=== PATIENT | male | born 1940 | race Caucasian/White ===

== ENCOUNTER → 2016-11-10 | Outpatient (CLI) | payer OTHER ==
[~2016-11-10] MED LIST: /IPRAINH; /OCUVTA GT; /ONDA4TA IV; /TAMS4CA PO; /TIOT18INH INH; ADV500INH INH; ADVIL PM PO; ALBU17IN2 INH; ALBUTEROL INH; ALLO300T PO; ALLO300T2 PO; COUM2TAB10 PO; D 1010004 PO; DIGO0.12 PO; DILT240C3 PO; DOXY100T; EYE PO; FURO20TA2 PO; FURO40TA2; FURO40TA2 PO; GLYB5TAB5 PO; INSULADS SC; IPRA2IN INH; K-TA10TA; K-TA10TA OR; K-TA10TA PO; LEVA250T; LEVA500T OR; LEVO500T PO; LISI40TA; LISI40TA PO; MELOPOW; METF1000 PO; METO25TA74 PO; MULT1TAB10 PO; NOVOINJ3 SC; PERC5TAB PO; PERF20NE2 INH; SIMV20TA2; SIMV40TA2 PO; SPIR25TA2 PO; SPIRIVA INH; SYMB80AE; SYMB80AE INH; THEO400T PO; THEO400T2; TORS20TA2 PO; TYLENOL PM; VERA1TAB11 PO; VICO5TAB PO; VITA400C; VITA400C PO; VITA500T; VITA500T PO; WARF4TAB51 PO; ZARO2.5T PO; [UNRECOGNIZED DRUG - CODE] OR
--- NOTE | 2016-11-10 21:09 | REP ---
Clinical: Pain and decreased range of motion. Technique: Internal rotation, external rotation, and Y view. Findings: Cortical irregularity and subtle spurring at the acromioclavicular joint is appreciated. Blunting and cortical irregularity to the glenoid with subchondral sclerosis and heterogeneity is appreciated. There is no evidence for acute fracture / compression injury or subluxation. Is subacromial space is normal and no free periarticular calcifications are identified. Impression: Mild age-related arthritic degenerative changes. Signed by Victor Manuel Kumar MD 11/10/2016 09:00 P
== END ==
LOC: M CLY 10:44
PROVIDERS: ATTEND Family Medicine
DX: E83.119 Hemochromatosis, unspecified (principal); M75.42 Impingement syndrome of left shoulder; M19.012 Primary osteoarthritis, left shoulder; E11.22 Type 2 diabetes mellitus with diabetic chronic kidney disease
CPT/HCPCS: 73030; 80048; 82043; 83036; 85027; G0463

== ENCOUNTER → 2016-11-10 | Outpatient (REF) | payer OTHER ==
[2016-11-10 18:27] LABS: MEAN CORPUSCULAR HEMOGLOBIN 30.5 pg (27.0-33.0); MEAN CORPUSCULAR HGB CONC 32.5 g/dl (32.0-36.5); MEAN CORPUSCULAR VOLUME 93.8 fl (80.0-96.0); RED CELL DISTRIBUTION WIDTH 16.4 % (11.5-14.5); WHITE BLOOD COUNT 13.9 K/mm3 (4.0-10.0)
[2016-11-10 18:28] LABS: CALCIUM LEVEL 9.3 MG/DL (8.8-10.2); CREATININE FOR GFR 2.32 MG/DL (0.70-1.30); GLOMERULAR FILTRATION RATE 29.2 (>42); POTASSIUM SERUM 4.4 MEQ/L (3.5-5.1)
== END ==
LOC: M SFHCCLAY 07:19
PROVIDERS: ATTEND Family Medicine
DX: E11.22 Type 2 diabetes mellitus with diabetic chronic kidney disease (principal); E83.119 Hemochromatosis, unspecified

== ENCOUNTER → 2017-01-07 | Outpatient (REF) | payer OTHER ==
[2017-01-07 11:17] LABS: MEAN CORPUSCULAR HEMOGLOBIN 30.3 pg (27.0-33.0); MEAN CORPUSCULAR HGB CONC 31.9 g/dl (32.0-36.5); RED CELL DISTRIBUTION WIDTH 14.4 % (11.5-14.5); WHITE BLOOD COUNT 13.8 K/mm3 (4.0-10.0)
[2017-01-07 11:38] LABS: CALCIUM LEVEL 8.6 MG/DL (8.8-10.2); CREATININE FOR GFR 2.47 MG/DL (0.70-1.30); GLOMERULAR FILTRATION RATE 27.2 (>42); POTASSIUM SERUM 4.3 MEQ/L (3.5-5.1)
== END ==
LOC: M SFHCCLAY 08:14
PROVIDERS: ATTEND Urology
DX: N39.0 Urinary tract infection, site not specified (principal)

== ENCOUNTER → 2017-02-22 | Outpatient (REF) | payer OTHER ==
[~2017-02-22] MED LIST changes: -THEO400T PO; +THEOPHYLLINE E400 MG PO
== END ==
LOC: M SMT 17:09
PROVIDERS: ATTEND Urology
DX: Z85.51 Personal history of malignant neoplasm of bladder (principal)

== ENCOUNTER → 2017-02-23 | Outpatient (REF) | payer OTHER | LOC: M SFHCCLAY 16:02 | PROVIDERS: ATTEND Family Medicine | DX: L82.1 Other seborrheic keratosis (principal) ==

== ENCOUNTER → 2017-04-23 | Outpatient (CLI) | payer OTHER | LOC: M PLARAD 07:33 | PROVIDERS: ATTEND Internal Medicine | DX: M54.5 Low back pain (principal); Z53.8 Procedure and treatment not carried out for other reasons ==

== ENCOUNTER → 2017-06-18 | Outpatient (REF) | payer OTHER ==
[~2017-06-18] MED LIST changes: -COUM2TAB10 PO; +COUM2TAB22 PO; +METO1TAB32 PO; -METO25TA74 PO; +THEO400T PO; -THEOPHYLLINE E400 MG PO
== END ==
LOC: M SFHCCLAY 15:14
PROVIDERS: ATTEND Family Medicine
DX: C44.329 Squamous cell carcinoma of skin of other parts of face (principal)

== ENCOUNTER → 2017-06-24 | Outpatient (REF) | payer OTHER ==
[2017-06-24 12:02] LABS: CALCIUM LEVEL 8.8 MG/DL (8.8-10.2); CREATININE FOR GFR 2.12 MG/DL (0.70-1.30); GLOMERULAR FILTRATION RATE 32.4 (>42); POTASSIUM SERUM 4.7 MEQ/L (3.5-5.1)
== END ==
LOC: M SFHCCLAY 06:57
PROVIDERS: ATTEND Family Medicine
DX: E11.22 Type 2 diabetes mellitus with diabetic chronic kidney disease (principal)
CPT/HCPCS: 80048; G0463

== ENCOUNTER → 2017-07-15 | Outpatient (REF) | payer OTHER | LOC: M SFHCCLAY 08:11 | PROVIDERS: ATTEND Family Medicine | DX: D48.5 Neoplasm of uncertain behavior of skin (principal) | CPT/HCPCS: 11100; 88305; G0463 ==

== ENCOUNTER → 2017-08-19 | Outpatient (REF) | payer OTHER ==
[2017-08-19 12:05] LABS: MEAN CORPUSCULAR HEMOGLOBIN 19.3 pg (27.0-33.0); MEAN CORPUSCULAR HGB CONC 27.3 g/dl (32.0-36.5); WHITE BLOOD COUNT 20.4 10^3/uL (4.0-10.0)
[2017-08-19 12:11] LABS: MEAN CORPUSCULAR VOLUME 70.5 fl (80.0-96.0)
[2017-08-19 12:31] LABS: CALCIUM LEVEL 9.1 MG/DL (8.8-10.2); CREATININE FOR GFR 2.05 MG/DL (0.70-1.30); GLOMERULAR FILTRATION RATE 33.7 (>42); POTASSIUM SERUM 4.8 MEQ/L (3.5-5.1)
== END ==
LOC: M SMT 11:22
PROVIDERS: ATTEND Urology
DX: Z85.51 Personal history of malignant neoplasm of bladder (principal)

== ENCOUNTER → 2017-08-25 | Outpatient (REF) | payer OTHER | LOC: M LABSMT 10:14 → M LABDRAWC 10:21 | PROVIDERS: ATTEND Nurse Practitioner Women's Health | DX: Z85.51 Personal history of malignant neoplasm of bladder (principal); Z79.899 Other long term (current) drug therapy ==

== ENCOUNTER → 2017-09-20 | Outpatient (REF) | payer OTHER | LOC: M LAB REF 16:26 | PROVIDERS: ATTEND Internal Medicine Medical Oncology | DX: D64.9 Anemia, unspecified (principal) ==

== ENCOUNTER → 2017-10-04 | Outpatient (REF) | payer OTHER | LOC: M SMT 13:13 | PROVIDERS: ATTEND Urology | DX: Z08 Encounter for follow-up examination after completed treatment for malignant neoplasm (principal); Z85.51 Personal history of malignant neoplasm of bladder ==

== ENCOUNTER → 2017-11-09 | Outpatient (REF) | payer OTHER ==
[2017-11-09 12:59] LABS: FERRITIN 19 NG/ML (26-388); IRON (FE) 21 UG/DL (65-175); PERCENT SATURATION 8.2 % (19.7-50.0); TOTAL IRON BINDING CAPACITY 255 UG/DL (250-450)
== END ==
LOC: M LAB REF 11:50
DX: D72.829 Elevated white blood cell count, unspecified (principal); D47.1 Chronic myeloproliferative disease
CPT/HCPCS: 83550

== ENCOUNTER → 2018-01-05 | Outpatient (REF) | payer OTHER ==
[2018-01-05 15:15] LABS: PROSTATIC SPECIFIC AG MONITOR 0.39 NG/ML (< 4.0)
== END ==
LOC: M LAB REF 13:38
DX: D50.9 Iron deficiency anemia, unspecified (principal)
CPT/HCPCS: 84153

== ENCOUNTER 2018-01-27 11:25 | Observation (INO) | payer OTHER ==
[2018-01-27] MEDS: MORPHINE 2 MG/ML 1ML SYRINGE (J2270) IV ×2 (12:09→15:59)
[2018-01-27] MEDS: ONDANSETRON 4MG/2ML VIAL (J2405) IV (12:09)
[2018-01-27] MEDS: NS 500 ML IV (12:09)
[2018-01-27 12:12] LABS: BASO # 0.1 10^3/uL (0.0-0.2); BASO % 0.5 % (0.0-1.0); EOS # 0.3 10^3/uL (0.0-0.50); EOS % 1.1 % (0.0-3.0); HEMATOCRIT 32.8 % (42.0-52.0); HEMOGLOBIN 9.9 g/dl (14.0-18.0); IMMATURE GRANULOCYTE % 3.2 % (0-3.0); LYMPH # 3.3 10^3/uL (1.5-4.5); LYMPH % 12.8 % (24.0-44.0); MEAN CORPUSCULAR HEMOGLOBIN 22.4 pg (27.0-33.0); MEAN CORPUSCULAR HGB CONC 30.2 g/dl (32.0-36.5); MEAN CORPUSCULAR VOLUME 74.4 fl (80.0-96.0); MONO % 10.5 % (0.0-5.0); NEUTROPHILS # 18.7 10^3/uL (1.8-7.7); NEUTROPHILS % 71.9 % (36.0-66.0); PLATELET COUNT, AUTOMATED 527 10^3/uL (150-450); RED BLOOD COUNT 4.41 10^6/uL (4.30-6.10); RED CELL DISTRIBUTION WIDTH 18.9 % (11.5-14.5)
[2018-01-27 12:22] LABS: INR 1.93; PROTHROMBIN TIME 22.7 SECONDS (12.4-14.5)
[2018-01-27 12:23] LABS: PARTIAL THROMBOPLASTIN TIME 35.7 SECONDS (26.8-37.9)
[2018-01-27 12:35] LABS: MONO # 2.7 10^3/uL (0.0-0.8); POSITIVE DIFF POS FLAG
[2018-01-27 12:38] LABS: ALBUMIN 3.4 GM/DL (3.2-5.2); ALBUMIN/GLOBULIN RATIO 0.83 (1.00-1.93); ALKALINE PHOSPHATASE 88 U/L (45-117); ALT/SGPT 29 U/L (12-78); ANION GAP 9 MEQ/L (8-16); AST/SGOT 14 U/L (7-37); BILIRUBIN,DIRECT 0.1 MG/DL (0.0-0.2); BILIRUBIN,TOTAL 0.3 MG/DL (0.2-1.0); BLOOD UREA NITROGEN 44 MG/DL (7-18); CALCIUM LEVEL 9.2 MG/DL (8.8-10.2); CARBON DIOXIDE LEVEL 28 MEQ/L (21-32); CHLORIDE LEVEL 100 MEQ/L (98-107); CPK CREATINE PHOSPHOKINASE 42 U/L (39-308); CREATININE FOR GFR 2.04 MG/DL (0.70-1.30); FREE T4 0.88 NG/DL (0.76-1.46); GLOMERULAR FILTRATION RATE 33.8 (>42); GLUCOSE, FASTING 199 MG/DL (70-100); LIPASE 144 U/L (73-393); POTASSIUM SERUM 4.1 MEQ/L (3.5-5.1); SODIUM LEVEL 137 MEQ/L (136-145); TOTAL PROTEIN 7.5 GM/DL (6.4-8.2); TROPONIN I < 0.02 NG/ML (< 0.10)
[2018-01-27 12:44] LABS: CK-MB VALUE MASS 1.5 NG/ML (<3.6); MB/CK RELATIVE INDEX 3.57 (< OR =4)
[2018-01-27] MEDS: TORSEMIDE 20 MG TAB PO (17:00)
[2018-01-27 17:24] LABS: CPK CREATINE PHOSPHOKINASE 43 U/L (39-308); TROPONIN I < 0.02 NG/ML (< 0.10)
[2018-01-27 17:25] LABS: CK-MB VALUE MASS 1.1 NG/ML (<3.6); MB/CK RELATIVE INDEX 2.55 (< OR =4)
[2018-01-27] MEDS ORDERED: PERCOCET 5MG/325MG TAB PO (20:30)
[2018-01-27] MEDS: SYMBICORT 160/4.5MCG INHALER 6GM INH (21:00)
[2018-01-27] MEDS: SPIRONOLACTONE 25 MG TAB PO (21:00)
[2018-01-27] MEDS: HumaLOG INSULIN (NovoLOG) PER UNIT SC (21:00)
[2018-01-27] MEDS: FLUoxetine 20 MG CAP PO (21:53)
[2018-01-27] MEDS: PRAVASTATIN 20 MG TAB PO (21:53)
[2018-01-27] MEDS: WARFARIN SOD 2 MG TAB PO (21:53)
[2018-01-27] MEDS: LEVEMIR (INSULIN DETEMIR) 1 UNITS/0.01ML SC (21:54)
[2018-01-27 22:13] LABS: BEDSIDE GLUCOSE 204 MG/DL (83-110)
[2018-01-27] MEDS ORDERED: GLUCOSE 4 GM CHEW TABLET PO (22:15)
[2018-01-27] MEDS ORDERED: DEXTROSE 50% 50 ML SYRINGE IV (22:15)
[2018-01-27] MEDS ORDERED: GLUCAGON FOR INJ 1 MG VIAL (J1610) SC (22:15)
[2018-01-27 23:27] LABS: CPK CREATINE PHOSPHOKINASE 57 U/L (39-308); MB/CK RELATIVE INDEX 1.75 (< OR =4); TROPONIN I < 0.02 NG/ML (< 0.10)
[2018-01-28 07:19] LABS: BEDSIDE GLUCOSE 85 MG/DL (83-110)
[2018-01-28] MEDS: HumaLOG INSULIN (NovoLOG) PER UNIT SC (07:30)
[2018-01-28] MEDS: LEVEMIR (INSULIN DETEMIR) 1 UNITS/0.01ML SC ×2 (07:38→08:40)
[2018-01-28] MEDS: TIOTROPIUM INHALER/CAPSULE (SPIRIVA) INH (08:27)
[2018-01-28] MEDS: SYMBICORT 160/4.5MCG INHALER 6GM INH (08:27)
[2018-01-28] MEDS: VERAPAMIL 120 MG SR TAB PO (08:37)
[2018-01-28] MEDS: TORSEMIDE 20 MG TAB PO (08:37)
[2018-01-28] MEDS: VITAMIN D 1,000 INTERNATIONAL UNITS TABLET PO (08:38)
[2018-01-28] MEDS: OMEPRAZOLE 20 MG CAP PO (08:38)
[2018-01-28] MEDS: LOSARTAN 25 MG TAB PO (08:39)
[2018-01-28] MEDS: DIGOXIN 0.125 MG TAB PO (08:39)
[2018-01-28] MEDS: SPIRONOLACTONE 25 MG TAB PO (08:39)
[2018-01-28] MEDS: ALLOPURINOL 300 MG TAB PO (08:39)
[2018-01-28] MEDS ORDERED: WARFARIN SOD 1 MG TAB PO ×2 (09:00→17:00)
== END 2018-01-28 10:00 | disposition home or self-care (01) ==
LOC: M ED 11:25 → M ED INP 20:28
DX: R07.89 Other chest pain (principal); R06.02 Shortness of breath; I10 Essential (primary) hypertension; I48.0 Paroxysmal atrial fibrillation; Z79.01 Long term (current) use of anticoagulants; E11.9 Type 2 diabetes mellitus without complications; E83.119 Hemochromatosis, unspecified; J44.9 Chronic obstructive pulmonary disease, unspecified; G47.33 Obstructive sleep apnea (adult) (pediatric); Z79.4 Long term (current) use of insulin; M10.9 Gout, unspecified; E78.00 Pure hypercholesterolemia, unspecified; K76.0 Fatty (change of) liver, not elsewhere classified; K27.7 Chronic peptic ulcer, site unspecified, without hemorrhage or perforation; Z85.46 Personal history of malignant neoplasm of prostate; Z85.51 Personal history of malignant neoplasm of bladder; R91.1 Solitary pulmonary nodule; Z88.8 Allergy status to other drugs, medicaments and biological substances; Z88.0 Allergy status to penicillin; Z87.891 Personal history of nicotine dependence; Z79.899 Other long term (current) drug therapy
CPT/HCPCS: J2405

== ENCOUNTER → 2018-02-22 | Outpatient (REF) | payer OTHER, MEDICARE ==
[2018-02-22 14:03] LABS: FERRITIN 36 NG/ML (26-388); IRON (FE) 26 UG/DL (65-175); PERCENT SATURATION 10.7 % (19.7-50.0); TOTAL IRON BINDING CAPACITY 242 UG/DL (250-450)
[2018-02-24 00:08] LABS: SOLUBLE TRANSFERRIN RECEPTOR 40.7 nmol/L (12.2-27.3)
== END ==
LOC: M LAB REF 13:08
DX: D50.9 Iron deficiency anemia, unspecified (principal)
CPT/HCPCS: 83550

== ENCOUNTER → 2018-03-02 | Outpatient (REF) | payer OTHER, MEDICARE | LOC: M LAB REF 12:40 | DX: D64.9 Anemia, unspecified (principal); D72.829 Elevated white blood cell count, unspecified | CPT/HCPCS: 88300 ==

== ENCOUNTER → 2018-04-08 | Outpatient (REF) | payer OTHER ==
[2018-04-08 14:14] LABS: AMORPHOUS SEDIMENT SMALL (NEGATIVE); APPEARANCE, URINE CLOUDY (CLEAR); BACTERIA, URINE AUTO 2+ (NEGATIVE); BILIRUBIN, URINE AUTO NEGATIVE (NEGATIVE); BLOOD, URINE BLOOD NEGATIVE (NEGATIVE); COLOR, URINE YELLOW (YELLOW); GLUCOSE, URINE (UA) AUTO NEGATIVE (NEGATIVE); KETONE, URINE AUTO NEGATIVE (NEGATIVE); LEUKOCYTE ESTERASE, URINE AUTO 3+ (NEGATIVE); MUCUS, URINE SMALL (NEGATIVE); NITRITE, URINE AUTO NEGATIVE (NEGATIVE); PROTEIN, URINE AUTO NEGATIVE (NEGATIVE); RBC, URINE AUTO 5 /HPF (0-3); SQUAMOUS EPITHELIAL CELL UR AU 1 /HPF (0-6); UROBILINOGEN, URINE AUTO 0.2 mg/dL (0.0-2.0); WBC, URINE AUTO 106 /HPF (0-3)
== END ==
LOC: M LAB REF 13:28
DX: D50.9 Iron deficiency anemia, unspecified (principal)
CPT/HCPCS: 81001

== ENCOUNTER → 2018-04-18 | Outpatient (REF) | payer OTHER | LOC: M SMT 17:08 | DX: Z85.51 Personal history of malignant neoplasm of bladder (principal) | CPT/HCPCS: 88108 ==

== ENCOUNTER → 2018-05-06 | Outpatient (REF) | payer OTHER ==
[2018-05-06 11:57] LABS: BASO % 0.2 % (0.0-1.0); EOS # 0.4 10^3/uL (0.0-0.50); EOS % 2.5 % (0.0-3.0); HEMOGLOBIN 8.8 g/dl (13.5-17.5); IMMATURE GRANULOCYTE % 0.6 % (0-3.0); LYMPH # 1.8 10^3/uL (1.5-4.5); LYMPH % 11.2 % (24.0-44.0); MEAN CORPUSCULAR HEMOGLOBIN 23.2 pg (27.0-33.0); MEAN CORPUSCULAR HGB CONC 30.3 g/dl (32.0-36.5); MEAN CORPUSCULAR VOLUME 76.3 fl (80.0-96.0); MONO # 1.3 10^3/uL (0.0-0.8); MONO % 7.9 % (0.0-5.0); NEUTROPHILS # 12.6 10^3/uL (1.8-7.7); NEUTROPHILS % 77.6 % (36.0-66.0); PLATELET COUNT, AUTOMATED 477 10^3/uL (150-450); RED CELL DISTRIBUTION WIDTH 18.7 % (11.5-14.5); RETICULOCYTE # 61.6 10^9/L (17-77); RETICULOCYTE % 1.6 % (0.5-1.5); WHITE BLOOD COUNT 16.3 10^3/uL (4.0-10.0)
[2018-05-06 12:18] LABS: LDH LACTATE DEHYDROGENASE 154 U/L (87-241)
[2018-05-06 12:18] LABS: BILIRUBIN,TOTAL 0.3 MG/DL (0.2-1.0); FERRITIN 8 NG/ML (26-388); IRON (FE) 16 UG/DL (65-175); TOTAL PROTEIN 6.7 GM/DL (6.4-8.2)
[2018-05-09 11:18] LABS: ALBUMIN % 54.3 % (55.8-66.1); ALPHA-1-GLOBULIN % 5.9 % (2.9-4.9); ALPHA-2-GLOBULINS 0.82 GM/DL (0.42-0.99); ALPHA-2-GLOBULINS % 12.3 % (7.1-11.8); BETA-1-GLOBULINS 0.45 GM/DL (0.28-0.60); BETA-1-GLOBULINS % 6.7 % (4.7-7.2); BETA-2-GLOBULINS 0.47 GM/DL (0.19-0.55); GAMMA GLOBULIN % 13.8 % (11.1-18.8); GAMMA GLOBULINS 0.92 GM/DL (0.65-1.58)
[2018-05-09 11:19] LABS: ALBUMIN 3.64 GM/DL (3.29-5.55)
[2018-05-10 00:07] LABS: SOLUBLE TRANSFERRIN RECEPTOR 35.9 nmol/L (12.2-27.3)
== END ==
LOC: M LABDRAWC 11:38
DX: D64.9 Anemia, unspecified (principal)
CPT/HCPCS: 82247

== ENCOUNTER → 2018-06-21 | Outpatient (REF) | payer OTHER ==
[2018-06-21 19:55] LABS: APPEARANCE, URINE HAZY (CLEAR); BACTERIA, URINE AUTO 2+ (NEGATIVE); BILIRUBIN, URINE AUTO NEGATIVE (NEGATIVE); BLOOD, URINE BLOOD 3+ (NEGATIVE); COLOR, URINE YELLOW (YELLOW); GLUCOSE, URINE (UA) AUTO NEGATIVE (NEGATIVE); KETONE, URINE AUTO NEGATIVE (NEGATIVE); LEUKOCYTE ESTERASE, URINE AUTO 3+ (NEGATIVE); NITRITE, URINE AUTO NEGATIVE (NEGATIVE); PROTEIN, URINE AUTO NEGATIVE (NEGATIVE); RBC, URINE AUTO TNTC /HPF (0-3); SPECIFIC GRAVITY URINE AUTO 1.009 (1.002-1.035); SQUAMOUS EPITHELIAL CELL UR AU 1 /HPF (0-6); UROBILINOGEN, URINE AUTO 0.2 mg/dL (0.0-2.0); WBC, URINE AUTO 142 /HPF (0-3)
== END ==
LOC: M LABSMT 10:57 → M LABDRAWC 11:08
DX: R31.9 Hematuria, unspecified (principal)
CPT/HCPCS: 81001

== ENCOUNTER → 2018-07-07 | Outpatient (REF) | payer OTHER ==
[2018-07-07 16:45] LABS: APPEARANCE, URINE HAZY (CLEAR); BACTERIA, URINE AUTO NEGATIVE (NEGATIVE); BILIRUBIN, URINE AUTO NEGATIVE (NEGATIVE); BLOOD, URINE BLOOD NEGATIVE (NEGATIVE); COLOR, URINE YELLOW (YELLOW); GLUCOSE, URINE (UA) AUTO NEGATIVE (NEGATIVE); KETONE, URINE AUTO NEGATIVE (NEGATIVE); LEUKOCYTE ESTERASE, URINE AUTO TRACE (NEGATIVE); MUCUS, URINE SMALL (NEGATIVE); NITRITE, URINE AUTO NEGATIVE (NEGATIVE); PROTEIN, URINE AUTO NEGATIVE (NEGATIVE); RBC, URINE AUTO 6 /HPF (0-3); SPECIFIC GRAVITY URINE AUTO 1.014 (1.002-1.035); SQUAMOUS EPITHELIAL CELL UR AU 2 /HPF (0-6); UROBILINOGEN, URINE AUTO 0.2 mg/dL (0.0-2.0); WBC, URINE AUTO 8 /HPF (0-3)
== END ==
LOC: M LABDRAWC 16:19
DX: N30.01 Acute cystitis with hematuria (principal)
CPT/HCPCS: 81001

== ENCOUNTER → 2018-08-11 | Outpatient (REF) | payer OTHER ==
[2018-08-11 17:41] LABS: HEMATOCRIT 34.5 % (42.0-52.0); HEMOGLOBIN 10.6 g/dl (13.5-17.5); MEAN CORPUSCULAR HGB CONC 30.7 g/dl (32.0-36.5); MEAN CORPUSCULAR VOLUME 84.8 fl (80.0-96.0); PLATELET COUNT, AUTOMATED 400 10^3/uL (150-450); RED BLOOD COUNT 4.07 10^6/uL (4.30-6.10); RED CELL DISTRIBUTION WIDTH 17.8 % (11.5-14.5); WHITE BLOOD COUNT 14.6 10^3/uL (4.0-10.0)
[2018-08-11 17:48] LABS: FERRITIN 14 NG/ML (26-388)
== END ==
LOC: M LABDRAWC 16:36
DX: D50.9 Iron deficiency anemia, unspecified (principal)
CPT/HCPCS: 82728

== ENCOUNTER → 2018-08-25 | Outpatient (CLI) | payer OTHER | LOC: M RAD 07:44 | DX: R22.2 Localized swelling, mass and lump, trunk (principal); D50.9 Iron deficiency anemia, unspecified; N18.9 Chronic kidney disease, unspecified | CPT/HCPCS: 70486 ==

== ENCOUNTER → 2018-09-14 | Outpatient (CLI) | payer OTHER | LOC: M CLY 13:35 | DX: R06.02 Shortness of breath (principal) | CPT/HCPCS: 71046; 80048 ==

== ENCOUNTER → 2018-09-14 | Outpatient (REF) | payer OTHER ==
[2018-09-14 17:24] LABS: ANION GAP 6 MEQ/L (8-16); BLOOD UREA NITROGEN 30 MG/DL (7-18); CARBON DIOXIDE LEVEL 32 MEQ/L (21-32); CHLORIDE LEVEL 101 MEQ/L (98-107); GLOMERULAR FILTRATION RATE 38.9 (>42); GLUCOSE, FASTING 157 MG/DL (70-100); NT-PRO BNP 95 PG/ML (<450); POTASSIUM SERUM 4.5 MEQ/L (3.5-5.1); SODIUM LEVEL 139 MEQ/L (136-145)
== END ==
LOC: M SFHCCLAY 13:18
DX: R06.02 Shortness of breath (principal)
CPT/HCPCS: 80048

== ENCOUNTER → 2018-12-19 | Outpatient (REF) | payer OTHER, MEDICARE ==
[~2018-12-19] MED LIST changes: +ALLO100T PO; +ATRO0.063 INH; +FLUO20CA8 PO; +INSULADS INJ; +LOSA25TA14 PO; +OMEP20CA3 PO; +OMEP40CA2 PO; +OXYC1TAB23 PO; +PRAV40TA2 PO; +PRESCAP4 PO; +PROAAER10 INH; +REFR0.5D8 OU; +SPIR-10 PO; +SPIR1CAP INH; +SYMB16INH INH; +VERA120T2 PO; +VERA12TASA PO; +WARF4TAB52 PO; +ZOFR4TAB16 PO
[2018-12-19 18:17] LABS: BASO # 0.1 10^3/uL (0.0-0.2); BASO % 0.4 % (0.0-1.0); EOS # 0.5 10^3/uL (0.0-0.50); HEMATOCRIT 42.5 % (42.0-52.0); HEMOGLOBIN 12.5 g/dl (13.5-17.5); LYMPH % 12.8 % (24.0-44.0); MEAN CORPUSCULAR HEMOGLOBIN 25.9 pg (27.0-33.0); MEAN CORPUSCULAR HGB CONC 29.4 g/dl (32.0-36.5); MONO # 1.3 10^3/uL (0.0-0.8); MONO % 8.3 % (0.0-5.0); NEUTROPHILS # 11.5 10^3/uL (1.8-7.7); NEUTROPHILS % 74.9 % (36.0-66.0); PLATELET COUNT, AUTOMATED 340 10^3/uL (150-450); RED BLOOD COUNT 4.83 10^6/uL (4.30-6.10); WHITE BLOOD COUNT 15.4 10^3/uL (4.0-10.0)
[2018-12-19 18:26] LABS: ALBUMIN 3.4 GM/DL (3.2-5.2); BILIRUBIN,TOTAL 0.4 MG/DL (0.2-1.0); CALCIUM LEVEL 8.7 MG/DL (8.8-10.2); CREATININE FOR GFR 1.91 MG/DL (0.70-1.30); GLOMERULAR FILTRATION RATE 36.4 (>42); PERCENT SATURATION 38.9 % (19.7-50.0); POTASSIUM SERUM 4.5 MEQ/L (3.5-5.1); TOTAL PROTEIN 6.6 GM/DL (6.4-8.2)
== END ==
LOC: M LABDRAWC 16:39
PROVIDERS: ATTEND Internal Medicine Hematology & Oncology
DX: I48.1 Persistent atrial fibrillation (principal)

== ENCOUNTER → 2019-02-13 | Outpatient (REF) | payer OTHER, MEDICARE ==
[~2019-02-13] MED LIST changes: -/IPRAINH; -/OCUVTA GT; -/ONDA4TA IV; -/TAMS4CA PO; -/TIOT18INH INH; +ATRO0.063; +FLOM0.4C39 PO; +ONDA-1 IV; +PROS2TAB2 GT; +REPA1TAB OR; +VERA180T3 PO; -VERA1TAB11 PO; -[UNRECOGNIZED DRUG - CODE] OR
[2019-02-13 13:15] LABS: BASO # 0.1 10^3/uL (0.0-0.2); BASO % 0.4 % (0.0-1.0); EOS # 0.5 10^3/uL (0.0-0.50); EOS % 3.1 % (0.0-3.0); HEMATOCRIT 44.4 % (42.0-52.0); HEMOGLOBIN 13.9 g/dl (13.5-17.5); LYMPH # 1.8 10^3/uL (1.5-4.5); LYMPH % 12.1 % (24.0-44.0); MEAN CORPUSCULAR HEMOGLOBIN 28.1 pg (27.0-33.0); MEAN CORPUSCULAR HGB CONC 31.3 g/dl (32.0-36.5); MEAN CORPUSCULAR VOLUME 89.7 fl (80.0-96.0); MONO # 1.2 10^3/uL (0.0-0.8); MONO % 8.2 % (0.0-5.0); NEUTROPHILS % 75.7 % (36.0-66.0); PLATELET COUNT, AUTOMATED 271 10^3/uL (150-450); RED BLOOD COUNT 4.95 10^6/uL (4.30-6.10); WHITE BLOOD COUNT 14.6 10^3/uL (4.0-10.0)
[2019-02-13 13:48] LABS: ALBUMIN 3.6 GM/DL (3.2-5.2); BILIRUBIN,TOTAL 0.4 MG/DL (0.2-1.0); CALCIUM LEVEL 9.1 MG/DL (8.8-10.2); CREATININE FOR GFR 1.81 MG/DL (0.70-1.30); GLOMERULAR FILTRATION RATE 38.7 (>42); PERCENT SATURATION 34.6 % (19.7-50.0); POTASSIUM SERUM 4.6 MEQ/L (3.5-5.1); TOTAL PROTEIN 6.7 GM/DL (6.4-8.2)
== END ==
LOC: M LABDRAWC 11:53
PROVIDERS: ATTEND Internal Medicine Hematology & Oncology
DX: D64.9 Anemia, unspecified (principal)

== ENCOUNTER → 2019-02-27 | Outpatient (REF) | payer OTHER, MEDICARE ==
[~2019-02-27] MED LIST changes: +DEXT4TAB15 PO; +HM S0.65 NARES; -INSULADS INJ; +SENN-23 PO; +WARF05TA PO
[2019-02-27 11:31] LABS: BASO # 0.1 10^3/uL (0.0-0.2); BASO % 0.4 % (0.0-1.0); EOS # 0.4 10^3/uL (0.0-0.50); EOS % 2.5 % (0.0-3.0); HEMATOCRIT 44.7 % (42.0-52.0); HEMOGLOBIN 13.8 g/dl (13.5-17.5); LYMPH # 1.6 10^3/uL (1.5-4.5); LYMPH % 11.6 % (24.0-44.0); MEAN CORPUSCULAR HEMOGLOBIN 28.2 pg (27.0-33.0); MEAN CORPUSCULAR HGB CONC 30.9 g/dl (32.0-36.5); MEAN CORPUSCULAR VOLUME 91.2 fl (80.0-96.0); MONO # 1.3 10^3/uL (0.0-0.8); MONO % 8.9 % (0.0-5.0); NEUTROPHILS # 10.7 10^3/uL (1.8-7.7); PLATELET COUNT, AUTOMATED 319 10^3/uL (150-450); WHITE BLOOD COUNT 14.1 10^3/uL (4.0-10.0)
[2019-02-27 12:25] LABS: FOLATE 17.8 NG/ML
== END ==
LOC: M LABDRAWC 11:04
PROVIDERS: ATTEND Internal Medicine Gastroenterology
DX: D50.9 Iron deficiency anemia, unspecified (principal)

== ENCOUNTER 2019-03-01 09:55 | Inpatient (IN) | payer MEDICARE, OTHER ==
[~2019-03-01] VITALS: Ht 182.9 cm; Wt 135.2 kg
[2019-03-01] MEDS: VERAPAMIL 120 MG SR TAB PO SCH (09:00)
[~2019-03-01 09:55] MED LIST changes: -DEXT4TAB15 PO; -HM S0.65 NARES; +METOPROLOL SUCC *XL* 25MG TAB (TopROL *XL*) PO SCH; -SENN-23 PO; -WARF05TA PO
[2019-03-01] MEDS ORDERED: ADACEL/BOOSTRIX VACCINE (DIPHTH/PERTUSS/ACELL/TETANUS)0.5ML SYR (90715) IM ONE (10:15)
[2019-03-01] MEDS ORDERED: METO1TAB32 PO (10:18)
--- NOTE | 2019-03-01 10:41 | REP ---
CT Head without contrast HISTORY: Trauma COMPARISON: None Areas of decreased attenuation are present in the periventricular white matter. This represents small-vessel ischemic disease. There is no intraparenchymal hemorrhage, acute infarct, mass or midline shift. The ventricular system and cortical sulci are dilated consistent with minimal volume loss. A small arachnoid cyst is present overlying the right frontal lobe. The arachnoid cyst measures 1.7 cm in transverse by 2.1 cm in AP dimensions. There is no mass effect on the adjacent right frontal lobe. There is no extra cerebral collection. There is no fracture. Mucosal thickening is present in the right maxillary sinus. IMPRESSION: 1. Small vessel ischemic disease. 2. Minimal volume loss. 3. There is a small 2.1 cm arachnoid cyst overlying the right frontal lobe. Electronically Signed by Lb Bah MD 03/01/2019 10:32 A
--- NOTE | 2019-03-01 10:45 | REP ---
CT cervical spine without contrast HISTORY: Trauma COMPARISON: None There is no acute fracture or subluxation. Disc bulges with associated osteophyte formation are present at the C3-4 through C6-7 levels. There is minimal narrowing of the spinal canal. Uncinate process and/or facet hypertrophy are present at the C2-3 through C7-T1 levels. These findings produce minimal to moderate narrowing of the neural foramina. The cervical intervertebral discs are decreased in height consistent with disc degeneration. IMPRESSION: 1. There is no acute fracture or subluxation. 2. There is cervical spondylosis at the C2-3 through C7-T1 levels. Electronically Signed by Lb Bah MD 03/01/2019 10:35 A
[2019-03-01 11:02] LABS: BASO % 0.2 % (0.0-1.0); EOS # 0.2 10^3/uL (0.0-0.50); EOS % 0.7 % (0.0-3.0); HEMATOCRIT 44.3 % (42.0-52.0); HEMOGLOBIN 14.2 g/dl (13.5-17.5); LYMPH # 0.9 10^3/uL (1.5-4.5); LYMPH % 4.1 % (24.0-44.0); MEAN CORPUSCULAR HEMOGLOBIN 28.3 pg (27.0-33.0); MEAN CORPUSCULAR HGB CONC 32.1 g/dl (32.0-36.5); MEAN CORPUSCULAR VOLUME 88.2 fl (80.0-96.0); MONO # 1.8 10^3/uL (0.0-0.8); MONO % 8.4 % (0.0-5.0); NEUTROPHILS # 18.7 10^3/uL (1.8-7.7); PLATELET COUNT, AUTOMATED 335 10^3/uL (150-450); RED BLOOD COUNT 5.02 10^6/uL (4.30-6.10); WHITE BLOOD COUNT 21.7 10^3/uL (4.0-10.0)
[2019-03-01 11:13] LABS: INR 2.08; PROTHROMBIN TIME 23.8 SECONDS (12.1-14.4)
[2019-03-01 11:27] LABS: ALBUMIN 3.4 GM/DL (3.2-5.2); ALT/SGPT 26 U/L (12-78); BILIRUBIN,DIRECT 0.2 MG/DL (0.0-0.2); BILIRUBIN,TOTAL 0.5 MG/DL (0.2-1.0); BLOOD UREA NITROGEN 30 MG/DL (7-18); CALCIUM LEVEL 8.8 MG/DL (8.8-10.2); CARBON DIOXIDE LEVEL 30 MEQ/L (21-32); CHLORIDE LEVEL 106 MEQ/L (98-107); CPK CREATINE PHOSPHOKINASE 159 U/L (39-308); CREATININE FOR GFR 1.67 MG/DL (0.70-1.30); GLOMERULAR FILTRATION RATE 42.5 (>42); GLUCOSE, FASTING 77 MG/DL (70-100); LIPASE 91 U/L (73-393); MB/CK RELATIVE INDEX 1.38 (< OR =4); POTASSIUM SERUM 4.8 MEQ/L (3.5-5.1); SODIUM LEVEL 141 MEQ/L (136-145); TOTAL PROTEIN 6.5 GM/DL (6.4-8.2); TROPONIN I < 0.02 NG/ML (< 0.10)
--- NOTE | 2019-03-01 11:50 | REP ---
CT chest without contrast: History: Left rib pain after a fall. Comparison chest CT study January 27, 2018. CT findings: There is no evidence of pneumothorax or hydrothorax. There are areas of heterogeneous parenchymal opacity in the left and right lower lobe posteriorly. The left lower lobe shows the most extensive opacity consistent with contusion or pneumonia. The right lower lobe changes are consistent with fibrosis and are unchanged from January 27, 2018. There is fairly extensive multifocal bilateral calcific pleural plaquing again noted consistent with previous asbestos exposure. No pleural-based mass lesion is seen. No lung mass lesion is observed. There is a very small quantity of pericardial fluid unchanged. No evidence of mediastinal hematoma is seen. No mediastinal adenopathy is appreciated. No rib, vertebral, manubrial or shoulder fracture is appreciated. No change in costal cartilage appearance or alignment compared to the prior study. Impression: New infiltrate left lower lobe consistent with contusion or pneumonia. Calcific pleural plaquing again noted. No rib fracture or bony destructive lesion. Otherwise no acute disease. Fibrotic changes in the right base. Electronically Signed by Weston Walker MD 03/01/2019 03:49 P
[2019-03-01] MEDS: METOPROLOL 5 MG/5 ML VIAL IV SCH ×3 (12:05→12:38)
[2019-03-01 12:28] LABS: DIGOXIN LEVEL 0.5 NG/ML (0.5-2.0)
[2019-03-01] MEDS ORDERED: DIGOXIN 0.125 MG TAB PO ONE (12:30)
[2019-03-01] MEDS ORDERED: AZITHROMYCIN INJ 500 MG, VIAL MATE ADAPTER 1 EACH in D5W 250 ML IV ONE (12:30)
[2019-03-01] MEDS ORDERED: METOPROLOL SUCC *XL* 25MG TAB (TopROL *XL*) PO ONE (12:30)
[2019-03-01] MEDS ORDERED: cefTRIAXone SOD 1 GM in D5W MINI-BAG PLUS 50 ML IV ONE (12:30)
[2019-03-01] MEDS ORDERED: LEVALBUTEROL 1.25 MG/0.5 ML CONCENTRATE NEB INH PRN (13:00)
[2019-03-01] MEDS ORDERED: GLUCAGON FOR INJ 1 MG VIAL (J1610) SC PRN (13:00)
[2019-03-01] MEDS ORDERED: DEXTROSE 50% 50 ML SYRINGE IV PRN (13:00)
[2019-03-01] MEDS ORDERED: DIGOXIN INJ 0.5 MG/2 ML AMP (J1160) IV ONE (13:00)
[2019-03-01] MEDS ORDERED: GLUCOSE 4 GM CHEW TABLET PO PRN (13:00)
[2019-03-01] MEDS ORDERED: PERCOCET 5MG/325MG TAB PO PRN (13:15)
[2019-03-01] MEDS ORDERED: DEXT4TAB15 PO (13:36)
[2019-03-01] MEDS ORDERED: WARF05TA PO (13:36)
[2019-03-01] MEDS ORDERED: HM S0.65 NARES (13:36)
[2019-03-01] MEDS ORDERED: SENN-23 PO (13:36)
--- NOTE | 2019-03-01 13:36 | REP ---
Left forearm: Two views. History: Trauma. Findings: Two views of the left forearm show a 3 mm metallic density in the soft tissues of the forearm along the volar and ulnar aspect distally. There is some diffuse osteopenia. There is advanced osteoarthritis at the first carpometacarpal articulation. No radial or ulnar fracture is seen. Mild medial and lateral epicondylar spurring noted. Impression: Small metallic foreign body projects volar and ulnar in the distal forearm. Epicondylar spurring and first carpometacarpal joint osteoarthritis are also noted. No fracture is seen. Electronically Signed by Weston Walker MD 03/01/2019 04:01 P
[2019-03-01] MEDS: LEVALBUTEROL 1.25 MG/0.5 ML CONCENTRATE NEB INH SCH ×2 (13:55→20:00)
[2019-03-01] MEDS ORDERED: PILL CRUSHER/CUTTER 1 EACH XX PRN (14:15)
[2019-03-01] MEDS ORDERED: METOPROLOL 5 MG/5 ML VIAL IV STA (15:15)
--- NOTE | 2019-03-01 15:59 | HPEPDOC ---
General Date of Admission Mar 01, 2019 at 12:51 Chief Complaint The patient is a 78-year-old male who Presented to the emergency room after exp eriencing a fall at home History of Present Illness Patient is a 78-year-old male with a PMHx of A. fib (on Coumadin), HTN, DLP, IDDM1, COPD on 2L O2, Lung nodule (follows w/ Dr. Barnhart), Prosate CA s/p radiation, Bladder CA s/p surgery, CKD3, Gout, GERD who presented to the emergency room after expressing a fall at home. Patient had noted that he fell out of bed and reports that he had slipped. Patient noted that he denied any lightheadedness or dizziness. Denied any loss of consciousness. . He has reported that hes been feeling well over the last several days. He noted mild shortness of breath associated with a productive cough of thick sputum. He noted chest pain with coughing. Patient does occasionally expense leg swelling. However, he denies any or thopnea. Patient uses a BiPAP with 2 L of oxygen bled into the machine every night and 2 L of oxygen at baseline during the daytime. Patient denies any abdominal pain, nausea, vomiting, constipation, diarrhea or discomfort with urination. Patient notes his appetite is fair, and notes that his weight has been stable. Home Medications Scheduled Allopurinol (Allopurinol) 100 Mg Tab, 300 MG PO DAILY, (Reported) Budesonide/Formoterol (Symbicort 160-4.5 Mcg Inhaler) 60 Puff/Inhaler Aers, 2 PUFF INH BID, (Reported) Cholecalciferol (Vitamin D3) (Vitamin D3) 1,000 Unit Cap, 2,000 UNIT PO DAILY, (Reported) Digoxin (Digoxin) 125 Mcg Tab, 125 MCG PO Q2D, (Reported) Insulin Aspart (Novolog Flexpen) 100 Unit/Ml Inj, 1 DOSE SC AC, (Reported) per sliding scale Insulin Glargine (Lantus) 100 Unit/Ml Inj, 50 UNIT SC BID, (Reported) Losartan Potassium (Losartan Potassium) 25 Mg Tab, 12.5 MG PO DAILY, (Reported) Metoprolol Succinate (Metoprolol Succinate) 25 Mg Tab.er.24h, 12.5 MG PO QHS, (Reported) Omeprazole (Omeprazole) 20 Mg Cap, 40 MG PO DAILY, (Reported) Pravastatin Sodium (Pravastatin Sodium) 40 Mg Tab, 40 MG PO QHS, (Reported) Spironolactone (Spironolactone) 25 Mg Tab, 25 MG PO BID, (Reported) Tiotropium Tiro (Spiriva) 18 Mcg Cap, 18 MCG INH DAILY, (Reported) Torsemide (Torsemide) 20 Mg Tab, 40 MG PO BID, (Reported) TAKES AM/1600 Verapamil HCl (Verapamil ER) 120 Mg Tabcr, 120 MG PO DAILY, (Reported) Vit C/Vit E AC/Lut/Copper/Zinc (Preservision Lutein Softgel) 1 Cap Cap, 1 CAP PO DAILY, (Reported) Warfarin Sod (Coumadin) 1 Mg Tablet, 1.5 MG PO QWEEK, (Reported) MONDAYS 170 Warfarin Sodium (Warfarin Sodium) 1 Mg Tab, 1 MG PO 6XWK, (Reported) SUN//WED//WED/SAT AT 1700 Scheduled PRN Albuterol Sulfate (Proair Hfa) 108 Mcg/Act Aer, 2 PUFF INH Q4H PRN for SHORTNESS OF BREATH, (Reported) Carboxymethylcellulose Sodium (Refresh Tears) 0.5 % Good, 1 DROP OU BIDP PRN for DRY EYES, (Reported) Dextrose (Glucose) 4 Gm Tab.chew, 4 GM PO ASDIRECTED PRN for LOW BLOOD SUGAR, (Reported) Oxycodone HCl/Acetaminophen (Oxycodone-Acetaminophen 5-325) 1 Tab Tab, 1 TAB PO TID PRN for PAIN, (Reported) Sennosides/Docusate Sodium (Senna-S Tablet) 1 Each Tablet, 2 TAB PO TID PRN for CONSTIPATION, (Reported) Sodium Chloride (Saline Nasal [place]) 44 Ml [place], 1 SPRAY NARES QID PRN for NASAL DRYNESS, (Reported) Allergies Coded Allergies: Penicillins (Verified Adverse Reaction, Mild, upset stomach, 02/02/19) aspirin (Verified Adverse Reaction, Mild, nose bleeds, 02/02/19) Past Medical History Medical History A. fib (on Coumadin), HTN, DLP, IDDM1, COPD on 2L O2, Lung nodule (follows w/ Dr. Barnhart), Prosate CA s/p radiation, Bladder CA s/p surgery, CKD3, Gout, GERD Surgical History Transurethral resection of the bladder. 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 Review of Systems Other systems 10 point review of systems is complete, all negative otherwise stated in HPI Vital Signs - Vitals: BP 117/58, HR 133, RR 16, Sat 95%RA, Temp 98.0F - General: Lying in bed, No acute distress, Speaking in full sentences, AAOx3 - HEENT: NC, AT, PERRLA, EOMI - CVS: IrIr, +S1S2, - Lungs: Fair air entry bilaterally, Clear to auscultation, No wheezing / rales / rhonchi - Abdomen: Soft, Non-distended, Non-tender - Extremities: No lower extremity edema, No calf tenderness - Neuro: No focal motor or sensory deficit - Skin: Some bruising around his extremities noted Laboratory Data Labs 24H Laboratory Tests 2 03/01/19 10:42: Immature Granulocyte % (Auto) 0.6, White Blood Count 21.7H, Red Blood Count 5.02, Hemoglobin 14.2, Hematocrit 44.3, Mean Corpuscular Volume 88.2, Mean Corpuscular Hemoglobin 28.3, Mean Corpuscular Hemoglobin Concent 32.1, Red Cell Distribution Width 18.7H, Platelet Count 335, Neutrophils (%) (Auto) 86.0H, Lymphocytes (%) (Auto) 4.1L, Monocytes (%) (Auto) 8.4H, Eosinophils (%) (Auto) 0.7, Basophils (%) (Auto) 0.2, Neutrophils # (Auto) 18.7H, Lymphocytes # (Auto) 0.9L, Monocytes # (Auto) 1.8H, Eosinophils # (Auto) 0.2, Basophils # (Auto) 0.0, Nucleated Red Blood Cells % (auto) 0.0, Prothrombin Time 23.8H, Prothromb Time International Ratio 2.08, Anion Gap 5L, Glomerular Filtration Rate 42.5, Calcium Level 8.8, Aspartate Amino Transf (AST/SGOT) 12, Alanine Aminotransferase (ALT/SGPT) 26, Alkaline Phosphatase 86, Total Bilirubin 0.5, Direct Bilirubin 0.2, Total Creatine Kinase 159, Creatine Kinase MB 2.0, Creatine Kinase MB Relative Index 1.38, Troponin I < 0.02, Total Protein 6.5, Albumin 3.4, Albumin/Globulin Ratio 1.10, Lipase 91, Digoxin Level 0.5 03/01/19 13:27: Lactic Acid Level 1.1 03/01/19 14:35: Bedside Glucose (Misc Panel) 110 CBC/BMP Laboratory Tests 03/01/19 10:42 Red Blood Count 5.02, Mean Corpuscular Volume 88.2, Mean Corpuscular Hemoglobin 28.3, Mean Corpuscular Hemoglobin Concent 32.1, Red Cell Distribution Width 18.7 H, Neutrophils (%) (Auto) 86.0 H, Lymphocytes (%) (Auto) 4.1 L, Monocytes (%) (Auto) 8.4 H, Eosinophils (%) (Auto) 0.7, Basophils (%) (Auto) 0.2, Neutrophils # (Auto) 18.7 H, Lymphocytes # (Auto) 0.9 L, Monocytes # (Auto) 1.8 H, Eosinophils # (Auto) 0.2, Basophils # (Auto) 0.0 Microbiology Microbiology 03/01/19 Blood Culture, Received Pending 03/01/19 Blood Culture, Received Pending Plan / VTE VTE Prophylaxis Ordered?: Yes Plan Plan Mechanical fall - She reported that he had a fall at home and reported that he had slipped - Patient denied any loss of consciousness - Physical without any significant findings of trauma - No focal neurologic deficits - CT head 03/01: 1. Small vessel ischemic disease. 2. Minimal volume loss. 3. There is a small 2.1 cm arachnoid cyst overlying the right frontal lobe. - Cervical C spine 03/01: 1. There is no acute fracture or subluxation. 2. There is cervical spondylosis at the C2-3 through C7-T1 levels. - L Radius / Ulna 03/01: Small metallic foreign body projects volar and ulnar in the distal forearm. Epicondylar spurring and first carpometacarpal joint osteoarthritis are also noted. No fracture is seen. - Continue with Tylenol for symptomatic control A. fib with RVR - Patient has not taken any of his a.m. medications - The emergency room, patient has received metoprolol 5 mg IV - Digoxin level noted - EKG reviewed; appears to show A. fib with RVR - Troponin x 1 set negative; will continue to trend - His home medications have been resumed including metoprolol PO and diltiazem PO - Will give additional dose of Metoprolol IV and Digoxin IV - c/w Digoxin PO - c/w full anticoagulation with Coumadin Shortness of breath and cough - likely 2/2 community acquire pneumonia - Patient has reported that hes been having a progressive shortness of breath over the last 3 days - Physical does not reveal any adventitious lung sounds - Leukocytosis with neutrophil predominance - No lactic acidosis - CT chest 03/01: New infiltrate left lower lobe consistent with contusion or pneumonia. Calcific pleural plaquing again noted. No rib fracture or bony destructive lesion. Otherwise no acute disease. Fibrotic changes in the right base. - Will check blood cultures, sputum cultues and respiratory panel - Will c/w Ceftriaxone and Azithromycin HTN - BP well controlled - Will hold Losartan, Spironolactone and Torsemide for now (re: avoid hypotension with rate control medications) - Will need to reintroduce medications within next 24-48 hours DLP - c/w Pravastatin IDDM1 - c/w ISS and Levemir (will reduce dose to 40 units BID from 50 BID) COPD on 2L O2 - Does not appear to have any evidence of exacerbation - Will c/w inhaled therapy as ordered Lung nodule - Follows w/ Dr. Barnhart as an outpatient Prostate CA s/p radiation Bladder CA s/p surgery CKD3 - Cr appears to be better than baseline Gout - c/w Allopurinol GERD - c/w Omeprazole DVT prophylaxis - On full anticoagulation with Warfarin [place] MAR[place] MD Mar 01, 2019 15:59
[2019-03-01 16:45] VITALS: BP 139/83
[2019-03-01] MEDS: HumaLOG INSULIN (NovoLOG) PER UNIT SC SCH ×3 (17:30→20:24)
[2019-03-01 17:46] LABS: CPK CREATINE PHOSPHOKINASE 349 U/L (39-308); TROPONIN I < 0.02 NG/ML (< 0.10)
[2019-03-01] MEDS: WARFARIN SOD 1 MG TAB PO SCH (18:03)
[2019-03-01] MEDS: LEVEMIR (INSULIN DETEMIR) 1 UNITS/0.01ML SC SCH (19:39)
[2019-03-01] MEDS: PRAVASTATIN 20 MG TAB PO SCH (19:39)
[2019-03-01 20:00] VITALS: BP 134/69
[2019-03-01] MEDS ORDERED: FLUoxetine 20 MG CAP PO SCH (21:00)
[2019-03-01] MEDS: SYMBICORT 160/4.5MCG INHALER 6GM INH SCH (21:11)
--- NOTE | 2019-03-01 22:15 | ECGEPIP ---
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
[2019-03-02] VITALS: BP 124/81
[2019-03-02 01:00] LABS: CPK CREATINE PHOSPHOKINASE 476 U/L (39-308); MB/CK RELATIVE INDEX 0.53 (< OR =4); TROPONIN I < 0.02 NG/ML (< 0.10)
[2019-03-02 04:00] VITALS: BP 125/71
[2019-03-02 05:37] LABS: BASO % 0.2 % (0.0-1.0); EOS # 0.2 10^3/uL (0.0-0.50); EOS % 1.1 % (0.0-3.0); HEMATOCRIT 41.4 % (42.0-52.0); HEMOGLOBIN 13.1 g/dl (13.5-17.5); LYMPH # 1.5 10^3/uL (1.5-4.5); LYMPH % 8.2 % (24.0-44.0); MEAN CORPUSCULAR HEMOGLOBIN 27.8 pg (27.0-33.0); MEAN CORPUSCULAR HGB CONC 31.6 g/dl (32.0-36.5); MEAN CORPUSCULAR VOLUME 87.9 fl (80.0-96.0); MONO % 11.2 % (0.0-5.0); NEUTROPHILS # 14.6 10^3/uL (1.8-7.7); NEUTROPHILS % 78.8 % (36.0-66.0); PLATELET COUNT, AUTOMATED 289 10^3/uL (150-450); RED BLOOD COUNT 4.71 10^6/uL (4.30-6.10); WHITE BLOOD COUNT 18.5 10^3/uL (4.0-10.0)
[2019-03-02 05:41] LABS: MONO # 2.1 10^3/uL (0.0-0.8)
[2019-03-02 06:19] LABS: CALCIUM LEVEL 8.5 MG/DL (8.8-10.2); CREATININE FOR GFR 1.4 MG/DL (0.70-1.30); DIGOXIN LEVEL 0.8 NG/ML (0.5-2.0); MAGNESIUM LEVEL 2.5 MG/DL (1.8-2.4); POTASSIUM SERUM 4.1 MEQ/L (3.5-5.1)
[2019-03-02] MEDS: TIOTROPIUM INHALER/CAPSULE (SPIRIVA) INH SCH (07:21)
[2019-03-02] MEDS: SYMBICORT 160/4.5MCG INHALER 6GM INH SCH ×2 (07:21→21:54)
[2019-03-02] MEDS: LEVALBUTEROL 1.25 MG/0.5 ML CONCENTRATE NEB INH SCH ×4 (07:22→20:00)
[2019-03-02 08:00] VITALS: BP 126/73
[2019-03-02] MEDS: LEVEMIR (INSULIN DETEMIR) 1 UNITS/0.01ML SC SCH (08:02)
--- NOTE | 2019-03-02 08:51 | IPNPDOC ---
Subjective Date Seen The patient was seen on 03/02/19. Subjective Chief Complaint/HPI fall, pneumonia Events since last encounter Admitted for fall, weakness at home. States hit left shoulder, arm and head. Denies LOC. Admits to poor po intake over the last week due to feeling poorly. Hypoglycemia with a glucose of 47 this am. Levemir held. takes Lantus 50 units sq bid at home. C/o cough. Remains on 2LNC which is at his baseline. General: Reports: Fatigue, Malaise Constitutional: Reports: Weakness; Denies: Chills, Fever, Night Sweats Skin: Reports: Other (skin tear left arm/elbow); Denies: Rash Pulmonary: Reports: Dyspnea, Cough Cardiovascular: Reports: Edema; Denies: Chest Pain, Palpitations, Orthopnea, Paroxysmal Noc. Dyspnea, Lt Headedness Gastrointestinal: Denies: Nausea, Vomiting, Abdominal Pain, Diarrhea, Constipation Neurological: Reports: Weakness Psych: Reports: Anxiety Objective Physical Examination General Exam: Positive: Alert, Cooperative, No Acute Distress Neck Exam: Positive: Supple; Negative: JVD, thyromegaly Chest Exam: Positive: Clear to auscultation, Normal air movement Heart Exam: Positive: Rate Normal, Irregular Rhythm Telemetry: Positive: Atrial fibrillation Abdomen Exam: Positive: Normal bowel sounds, Soft; Negative: Tenderness, Hepatospenomegaly Extremity Exam: Positive: Edema (trace LESTER), Normal pulses; Negative: Clubbing, Cyanosis Skin Exam: Positive: Other skin issue (skine tear to left elbow/upper arm: clean wound edges, no surrounding erythema.) Psych Exam: Positive: Mental status NL, Oriented x 3 A-FIB/CHADSVASC A-FIB History Current/History of A-Fib/PAF?: Yes Current Oral Anticoagulant The: Yes Assessment /Plan Problems (1) Pneumonia Status: Acute Problem Text: Day #2 Ceftriaxone and Rocephin. Continue Xopenex nebs prn. Continue at home oxygen rate of 2LNC. WBC improved at 18,000. (2) Atrial fibrillation with rapid ventricular response Status: Acute Problem Text: rate improved. Monitor. INR daily. Continue Warfarin for anti- coagulation. (3) Fall Status: Acute Problem Text: PT eval today. Wound care for skin tear ordered. (4) Diabetes mellitus Status: Chronic Problem Text: Levemir on hold due to hypoglycemia. Poor po intake for the last week. (5) HTN (hypertension) Status: Chronic Response to Treatment: Stable Problem Text: Losartan and Torsemide on hold currenlty. BP 120s/80s. (6) COPD (chronic obstructive pulmonary disease) (7) Gout Status: Chronic Response to Treatment: Stable (8) CKD (chronic kidney disease) stage 3, GFR 30-59 ml/min Status: Chronic Problem Text: Cr stable at 1.4 Plan/VTE VTE Prophylaxis Ordered?: Yes (warfarin) Plan Family Medicine Attending Note: I saw and examined Mr. Zavaleta, discussed with BUD Gomez. Agree with her note as documented. He was producing quite a bit of sputum when I saw him. His rate is improved, generally in the 90s, but I think we can do a little better than this. I'll continue to monitor for now, but we may want to adjust his regimen if he does not fall to a lower rate as his pneumonia starts to improve. 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) VS, I&O, 24H, Fishbone Vital Signs/I&O Vital Signs Date Time Temp Pulse Resp B/P (MAP) Pulse Ox O2 Delivery O2 Flow Rate FiO2 03/02/19 08:00 97.5 92 18 126/73 (90) 96 2.0 03/01/19 10:19 Nasal Cannula I&O- Last 24 Hours up to 6 AM 03/02/19 06:00 Intake Total 545 ml Output Total 0 ml Balance 545 ml Laboratory Data 24H LABS Laboratory Tests 2 03/01/19 10:42: Immature Granulocyte % (Auto) 0.6, White Blood Count 21.7H, Red Blood Count 5.02, Hemoglobin 14.2, Hematocrit 44.3, Mean Corpuscular Volume 88.2, Mean Corpuscular Hemoglobin 28.3, Mean Corpuscular Hemoglobin Concent 32.1, Red Cell Distribution Width 18.7H, Platelet Count 335, Neutrophils (%) (Auto) 86.0H, Lymphocytes (%) (Auto) 4.1L, Monocytes (%) (Auto) 8.4H, Eosinophils (%) (Auto) 0.7, Basophils (%) (Auto) 0.2, Neutrophils # (Auto) 18.7H, Lymphocytes # (Auto) 0.9L, Monocytes # (Auto) 1.8H, Eosinophils # (Auto) 0.2, Basophils # (Auto) 0.0, Nucleated Red Blood Cells % (auto) 0.0, Prothrombin Time 23.8H, Prothromb Time International Ratio 2.08, Anion Gap 5L, Glomerular Filtration Rate 42.5, Calcium Level 8.8, Aspartate Amino Transf (AST/SGOT) 12, Alanine Aminotransferase (ALT/SGPT) 26, Alkaline Phosphatase 86, Total Bilirubin 0.5, Direct Bilirubin 0.2, Total Creatine Kinase 159, Creatine Kinase MB 2.0, Creatine Kinase MB Relative Index 1.38, Troponin I < 0.02, Total Protein 6.5, Albumin 3.4, Albumin/Globulin Ratio 1.10, Lipase 91, Digoxin Level 0.5 03/01/19 13:27: Lactic Acid Level 1.1 03/01/19 14:35: Bedside Glucose (Misc Panel) 110 03/01/19 16:58: Total Creatine Kinase 349#H, Creatine Kinase MB 2.0, Creatine Kinase MB Relative Index 0.60, Troponin I < 0.02 03/01/19 17:31: Bedside Glucose (Misc Panel) 90 03/01/19 19:35: Bedside Glucose (Misc Panel) 164H 03/01/19 23:18: Total Creatine Kinase 476H, Creatine Kinase MB 2.0, Creatine Kinase MB Relative Index 0.53, Troponin I < 0.02 03/02/19 04:51: Immature Granulocyte % (Auto) 0.5, White Blood Count 18.5H, Red Blood Count 4.71, Hemoglobin 13.1L, Hematocrit 41.4L, Mean Corpuscular Volume 87.9, Mean Corpuscular Hemoglobin 27.8, Mean Corpuscular Hemoglobin Concent 31.6L, Red Cell Distribution Width 18.6H, Platelet Count 289, Neutrophils (%) (Auto) 78.8H, Lymphocytes (%) (Auto) 8.2L, Monocytes (%) (Auto) 11.2H, Eosinophils (%) (Auto) 1.1, Basophils (%) (Auto) 0.2, Neutrophils # (Auto) 14.6H, Lymphocytes # (Auto) 1.5, Monocytes # (Auto) 2.1H, Eosinophils # (Auto) 0.2, Basophils # (Auto) 0.0, Nucleated Red Blood Cells % (auto) 0.0, Anion Gap 5L, Glomerular Filtration Rate 52.0, Blood Urea Nitrogen 26H, Creatinine 1.40H, Sodium Level 143, Potassium Level 4.1, Chloride Level 109H, Carbon Dioxide Level 29, Calcium Level 8.5L, Magnesium Level 2.5H, Digoxin Level 0.8 CBC/BMP Laboratory Tests 03/01/19 10:42 Red Blood Count 5.02, Mean Corpuscular Volume 88.2, Mean Corpuscular Hemoglobin 28.3, Mean Corpuscular Hemoglobin Concent 32.1, Red Cell Distribution Width 18.7 H, Neutrophils (%) (Auto) 86.0 H, Lymphocytes (%) (Auto) 4.1 L, Monocytes (%) (Auto) 8.4 H, Eosinophils (%) (Auto) 0.7, Basophils (%) (Auto) 0.2, Neutrophils # (Auto) 18.7 H, Lymphocytes # (Auto) 0.9 L, Monocytes # (Auto) 1.8 H, Eosinophils # (Auto) 0.2, Basophils # (Auto) 0.0 03/02/19 04:51 Red Blood Count 4.71, Mean Corpuscular Volume 87.9, Mean Corpuscular Hemoglobin 27.8, Mean Corpuscular Hemoglobin Concent 31.6 L, Red Cell Distribution Width 18.6 H, Neutrophils (%) (Auto) 78.8 H, Lymphocytes (%) (Auto) 8.2 L, Monocytes (%) (Auto) 11.2 H, Eosinophils (%) (Auto) 1.1, Basophils (%) (Auto) 0.2, Neutrophils # (Auto) 14.6 H, Lymphocytes # (Auto) 1.5, Monocytes # (Auto) 2.1 H, Eosinophils # (Auto) 0.2, Basophils # (Auto) 0.0, Calcium Level 8.5 L Microbiology Microbiology 03/01/19 Blood Culture, Received Pending 03/01/19 Blood Culture, Received Pending 03/01/19 Respiratory Virus Panel (PCR) (YAKOV) - Final, Complete Simin Webb Mar 02, 2019 08:51 Uriel Escobar MD Mar 02, 2019 20:46
[2019-03-02] MEDS: ALLOPURINOL 100 MG TAB PO SCH (09:05)
[2019-03-02] MEDS: VITAMIN D 1,000 INTERNATIONAL UNITS TABLET PO SCH (09:05)
[2019-03-02] MEDS: OMEPRAZOLE 20 MG CAP PO SCH (09:05)
[2019-03-02] MEDS: METOPROLOL SUCC *XL* 12.5MG PER 1/2 TAB (TopROL *XL*) PO SCH (09:06)
[2019-03-02] MEDS: VERAPAMIL 120 MG SR TAB PO SCH (09:06)
[2019-03-02] MEDS: BACITRACIN OINT 30GM TOP SCH (09:16)
[2019-03-02 10:14] LABS: HEMOGLOBIN A1c 7.3 %
[2019-03-02 12:00] VITALS: BP 120/79
[2019-03-02] MEDS: HumaLOG INSULIN (NovoLOG) PER UNIT SC SCH ×3 (12:51→21:00)
[2019-03-02] MEDS: cefTRIAXone SOD 1 GM in D5W MINI-BAG PLUS 50 ML IV SCH (12:52)
[2019-03-02] MEDS ORDERED: cefTRIAXone SOD 1 GM VIAL (J0696) IM SCH (13:15)
[2019-03-02] MEDS: AZITHROMYCIN INJ 500 MG, VIAL MATE ADAPTER 1 EACH in D5W 250 ML IV SCH (13:49)
[2019-03-02] MEDS ORDERED: SLF 3 ML SYR IV PRN (14:15)
[2019-03-02 16:00] VITALS: BP 141/72
[2019-03-02] MEDS: WARFARIN SOD 1 MG TAB PO SCH (17:20)
[2019-03-02 20:00] VITALS: BP 132/74
[2019-03-02] MEDS: SLF 3 ML SYR IV SCH (21:13)
[2019-03-02] MEDS: PRAVASTATIN 20 MG TAB PO SCH (21:14)
[2019-03-03] VITALS: BP 119/67
[2019-03-03 04:00] VITALS: BP 133/76
[2019-03-03] MEDS: SLF 3 ML SYR IV SCH ×3 (05:23→21:12)
[2019-03-03 05:24] LABS: BASO # 0.1 10^3/uL (0.0-0.2); BASO % 0.3 % (0.0-1.0); EOS # 0.4 10^3/uL (0.0-0.50); EOS % 2.4 % (0.0-3.0); HEMATOCRIT 41.5 % (42.0-52.0); HEMOGLOBIN 13.2 g/dl (13.5-17.5); LYMPH # 1.7 10^3/uL (1.5-4.5); MEAN CORPUSCULAR HEMOGLOBIN 28.4 pg (27.0-33.0); MEAN CORPUSCULAR HGB CONC 31.8 g/dl (32.0-36.5); MEAN CORPUSCULAR VOLUME 89.2 fl (80.0-96.0); MONO # 1.8 10^3/uL (0.0-0.8); MONO % 11.5 % (0.0-5.0); NEUTROPHILS # 11.4 10^3/uL (1.8-7.7); NEUTROPHILS % 74.1 % (36.0-66.0); PLATELET COUNT, AUTOMATED 299 10^3/uL (150-450); RED BLOOD COUNT 4.65 10^6/uL (4.30-6.10); WHITE BLOOD COUNT 15.4 10^3/uL (4.0-10.0)
[2019-03-03 05:41] LABS: INR 2.09; PROTHROMBIN TIME 23.9 SECONDS (12.1-14.4)
[2019-03-03 05:50] LABS: CALCIUM LEVEL 8.9 MG/DL (8.8-10.2); CREATININE FOR GFR 1.51 MG/DL (0.70-1.30); GLOMERULAR FILTRATION RATE 47.7 (>42); MAGNESIUM LEVEL 2.4 MG/DL (1.8-2.4); POTASSIUM SERUM 4.2 MEQ/L (3.5-5.1)
[2019-03-03] MEDS: LEVALBUTEROL 1.25 MG/0.5 ML CONCENTRATE NEB INH SCH ×4 (07:29→20:00)
[2019-03-03] MEDS: TIOTROPIUM INHALER/CAPSULE (SPIRIVA) INH SCH (07:30)
[2019-03-03] MEDS: SYMBICORT 160/4.5MCG INHALER 6GM INH SCH ×2 (07:30→20:11)
[2019-03-03 08:00] VITALS: BP 133/75
--- NOTE | 2019-03-03 08:34 | IPNPDOC ---
Subjective Date Seen The patient was seen on 03/03/19. Subjective Chief Complaint/HPI No complaints other than soreness on his elbows from the fall Constitutional: Denies: Chills, Fever Pulmonary: Denies: Dyspnea, Cough Cardiovascular: Denies: Chest Pain, Palpitations Gastrointestinal: Denies: Nausea, Vomiting, Abdominal Pain, Diarrhea, Cons tipation Objective Physical Examination General Exam: Positive: Alert, Cooperative, No Acute Distress Neck Exam: Negative: JVD Chest Exam: Positive: Clear to auscultation, Normal air movement Heart Exam: Positive: Rate Normal, Irregular Rhythm Telemetry: Positive: Atrial fibrillation Abdomen Exam: Positive: Normal bowel sounds, Soft; Negative: Tenderness, Hepatospenomegaly Extremity Exam: Positive: Edema (trace LESTER), Normal pulses; Negative: Clubbing, Cyanosis Skin Exam: Positive: Other skin issue (skine tear to left elbow/upper arm: clean wound edges, no surrounding erythema.) Psych Exam: Positive: Mental status NL, Oriented x 3 A-FIB/CHADSVASC A-FIB History Current/History of A-Fib/PAF?: Yes Current Oral Anticoagulant The: Yes Treatment Treatment ordered: Warfarin Assessment /Plan Problems (1) Pneumonia Status: Acute Problem Text: Day #3 Ceftriaxone and Rocephin. Continue Xopenex nebs prn. Continue at home oxygen rate of 2LNC. WBC improved (2) Atrial fibrillation with rapid ventricular response Status: Acute Problem Text: Rate controlled with Verapamil and Toprol XL. INR = 2.09. Continue Warfarin for anti-coagulation. (3) Fall Status: Acute Problem Text: Per Pt - not safe as of therapy session yesterday. Wound care for skin tear ordered. (4) Diabetes mellitus Status: Chronic Problem Text: Levemir on hold due to hypoglycemia. Poor po intake for the last week. (5) HTN (hypertension) Status: Chronic Response to Treatment: Stable Problem Text: Losartan and Torsemide on hold currenltmimi. BP 120s/80s. (6) COPD (chronic obstructive pulmonary disease) Status: Chronic Response to Treatment: Stable Problem Text: On chronic oxygen (7) Gout Status: Chronic Response to Treatment: Stable (8) CKD (chronic kidney disease) stage 3, GFR 30-59 ml/min Status: Chronic Problem Text: Cr stable at 1.4 Plan/VTE VTE Prophylaxis Ordered?: Yes (warfarin) Plan Therapy: PT Family Medicine Attending Note: I saw and examined Mr. Zavaleta, discussed with TAO Bowers. Agree with her note as documented. He reports that his breathing's about the same today. He is still bringing up creamy colored sputum. He remains in atrial fibrillation and his rate remains in the high 90s to low 100s. He is on a very low dose of Toprol-XL (12.5 mg) I'm going to increase this to 25 and see if it helps control his rate a little better. If we notice bradycardia that I'll have to back off on this. 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 Cont PT - D/C home once stable VS, I&O, 24H, Fishbone Vital Signs/I&O Vital Signs Date Time Temp Pulse Resp B/P (MAP) Pulse Ox O2 Delivery O2 Flow Rate FiO2 03/03/19 08:00 97.2 90 18 133/75 (94) 96 03/03/19 04:00 2.0 03/01/19 10:19 Nasal Cannula I&O- Last 24 Hours up to 6 AM 03/03/19 06:00 Intake Total 1270 ml Output Total 275 ml Balance 995 ml Laboratory Data 24H LABS Laboratory Tests 2 03/02/19 12:17: Bedside Glucose (Misc Panel) 130H 03/02/19 16:49: Bedside Glucose (Misc Panel) 127H 03/02/19 20:33: Bedside Glucose (Misc Panel) 146H 03/03/19 04:41: Immature Granulocyte % (Auto) 0.7, White Blood Count 15.4H, Red Blood Count 4.65, Hemoglobin 13.2L, Hematocrit 41.5L, Mean Corpuscular Volume 89.2, Mean Corpuscular Hemoglobin 28.4, Mean Corpuscular Hemoglobin Concent 31.8L, Red Cell Distribution Width 18.6H, Platelet Count 299, Neutrophils (%) (Auto) 74.1H, Ly mphocytes (%) (Auto) 11.0L, Monocytes (%) (Auto) 11.5H, Eosinophils (%) (Auto) 2.4, Basophils (%) (Auto) 0.3, Neutrophils # (Auto) 11.4H, Lymphocytes # (Auto) 1.7, Monocytes # (Auto) 1.8H, Eosinophils # (Auto) 0.4, Basophils # (Auto) 0.1, Nucleated Red Blood Cells % (auto) 0.0, Prothrombin Time 23.9H, Prothromb Time International Ratio 2.09, Anion Gap 6L, Glomerular Filtration Rate 47.7, Blood Urea Nitrogen 26H, Creatinine 1.51H, Sodium Level 140, Potassium Level 4.2, Chloride Level 108H, Carbon Dioxide Level 26, Calcium Level 8.9, Magnesium Level 2.4 CBC/BMP Laboratory Tests 03/03/19 04:41 Red Blood Count 4.65, Mean Corpuscular Volume 89.2, Mean Corpuscular Hemoglobin 28.4, Mean Corpuscular Hemoglobin Concent 31.8 L, Red Cell Distribution Width 18.6 H, Neutrophils (%) (Auto) 74.1 H, Lymphocytes (%) (Auto) 11.0 L, Monocytes (%) (Auto) 11.5 H, Eosinophils (%) (Auto) 2.4, Basophils (%) (Auto) 0.3, Neutrophils # (Auto) 11.4 H, Lymphocytes # (Auto) 1.7, Monocytes # (Auto) 1.8 H, Eosinophils # (Auto) 0.4, Basophils # (Auto) 0.1, Calcium Level 8.9 Microbiology Microbiology 03/01/19 Blood Culture - Preliminary, Resulted No growth after 24 hours . All specim... 03/01/19 Blood Culture - Preliminary, Resulted No growth after 24 hours . All specim... 03/01/19 Respiratory Virus Panel (PCR) ([facility]) - Final, Complete RAMÓN RAYMUNDO PA-C Mar 03, 2019 8:34 am Uriel Escobar MD Mar 03, 2019 6:50 pm
[2019-03-03] MEDS: OMEPRAZOLE 20 MG CAP PO SCH (08:48)
[2019-03-03] MEDS: VERAPAMIL 120 MG SR TAB PO SCH (08:49)
[2019-03-03] MEDS: VITAMIN D 1,000 INTERNATIONAL UNITS TABLET PO SCH (08:49)
[2019-03-03] MEDS: ALLOPURINOL 100 MG TAB PO SCH (08:49)
[2019-03-03] MEDS: METOPROLOL SUCC *XL* 12.5MG PER 1/2 TAB (TopROL *XL*) PO SCH (08:49)
[2019-03-03] MEDS: HumaLOG INSULIN (NovoLOG) PER UNIT SC SCH ×4 (08:50→21:00)
[2019-03-03] MEDS: BACITRACIN OINT 30GM TOP SCH (08:50)
[2019-03-03] MEDS ORDERED: TRIAMCINOLONE ACETONIDE SUSP 40 MG/ML VIAL (J3301) IA SCH (09:00)
[2019-03-03 11:50] LABS: C REACTIVE PROTEIN QUANTITATIV 10.5 MG/DL (0.00-0.30)
[2019-03-03 12:00] VITALS: BP 136/82
[2019-03-03] MEDS: cefTRIAXone SOD 1 GM in D5W MINI-BAG PLUS 50 ML IV SCH (12:32)
[2019-03-03] MEDS ORDERED: METOPROLOL SUCC *XL* 12.5MG PER 1/2 TAB (TopROL *XL*) PO ONE (13:00)
[2019-03-03] MEDS: AZITHROMYCIN INJ 500 MG, VIAL MATE ADAPTER 1 EACH in D5W 250 ML IV SCH (14:13)
[2019-03-03 16:00] VITALS: BP 127/63
[2019-03-03] MEDS: WARFARIN SOD 1 MG TAB PO SCH (17:52)
[2019-03-03 20:00] VITALS: BP 121/72
[2019-03-03] MEDS: PRAVASTATIN 20 MG TAB PO SCH (21:12)
[2019-03-04] VITALS: BP 101/56
[2019-03-04 04:00] VITALS: BP 114/81
[2019-03-04] MEDS: SLF 3 ML SYR IV SCH ×3 (05:18→20:15)
[2019-03-04 05:33] LABS: BASO # 0.1 10^3/uL (0.0-0.2); BASO % 0.4 % (0.0-1.0); EOS # 0.4 10^3/uL (0.0-0.50); EOS % 2.7 % (0.0-3.0); HEMATOCRIT 41.1 % (42.0-52.0); HEMOGLOBIN 13.1 g/dl (13.5-17.5); LYMPH # 1.8 10^3/uL (1.5-4.5); MEAN CORPUSCULAR HEMOGLOBIN 28.4 pg (27.0-33.0); MEAN CORPUSCULAR HGB CONC 31.9 g/dl (32.0-36.5); MONO # 1.7 10^3/uL (0.0-0.8); MONO % 11.6 % (0.0-5.0); NEUTROPHILS # 10.7 10^3/uL (1.8-7.7); NEUTROPHILS % 72.6 % (36.0-66.0); PLATELET COUNT, AUTOMATED 300 10^3/uL (150-450); RED BLOOD COUNT 4.62 10^6/uL (4.30-6.10); WHITE BLOOD COUNT 14.7 10^3/uL (4.0-10.0)
[2019-03-04 05:56] LABS: C REACTIVE PROTEIN QUANTITATIV 8.13 MG/DL (0.00-0.30); CALCIUM LEVEL 8.2 MG/DL (8.8-10.2); CREATININE FOR GFR 1.58 MG/DL (0.70-1.30); GLOMERULAR FILTRATION RATE 45.3 (>42); MAGNESIUM LEVEL 2.4 MG/DL (1.8-2.4); POTASSIUM SERUM 4.2 MEQ/L (3.5-5.1)
[2019-03-04 06:19] LABS: INR 2.18; PROTHROMBIN TIME 24.7 SECONDS (12.1-14.4)
[2019-03-04 08:00] VITALS: BP 122/80
[2019-03-04] MEDS: SYMBICORT 160/4.5MCG INHALER 6GM INH SCH ×2 (08:00→19:53)
[2019-03-04] MEDS: LEVALBUTEROL 1.25 MG/0.5 ML CONCENTRATE NEB INH SCH ×4 (08:00→19:53)
[2019-03-04] MEDS: HumaLOG INSULIN (NovoLOG) PER UNIT SC SCH ×4 (08:01→20:13)
[2019-03-04] MEDS: VITAMIN D 1,000 INTERNATIONAL UNITS TABLET PO SCH (08:01)
[2019-03-04] MEDS: ALLOPURINOL 100 MG TAB PO SCH (08:02)
[2019-03-04] MEDS: METOPROLOL SUCC *XL* 25MG TAB (TopROL *XL*) PO SCH (08:02)
[2019-03-04] MEDS: VERAPAMIL 120 MG SR TAB PO SCH (08:02)
[2019-03-04] MEDS: OMEPRAZOLE 20 MG CAP PO SCH (08:03)
[2019-03-04] MEDS: BACITRACIN OINT 30GM TOP SCH (08:03)
[2019-03-04] MEDS: TIOTROPIUM INHALER/CAPSULE (SPIRIVA) INH SCH (09:00)
[2019-03-04 12:00] VITALS: BP 142/84
[2019-03-04] MEDS: cefTRIAXone SOD 1 GM in D5W MINI-BAG PLUS 50 ML IV SCH (14:02)
[2019-03-04] MEDS: AZITHROMYCIN INJ 500 MG, VIAL MATE ADAPTER 1 EACH in D5W 250 ML IV SCH (15:06)
[2019-03-04 16:00] VITALS: BP 131/81
--- NOTE | 2019-03-04 17:05 | IPNPDOC ---
Subjective Date Seen The patient was seen on 03/04/19. Subjective Chief Complaint/HPI Lb reports that he is feeling quite a bit better today. He is quite interested in discharge tomorrow if possible. He states he is coughing a lot less and bringing up much less sputum as well. General: Reports: Normal Appetite Constitutional: Denies: Chills, Fever Pulmonary: Reports: Dyspnea (improving), Cough (but much improved) Cardiovascular: Denies: Chest Pain, Palpitations Musculoskeletal: Denies: Muscle Pain Psych: Reports: Mood Normal Objective Physical Examination General Exam: Positive: Alert, Cooperative (sitting up in bed eating his supper when I entered the room), No Acute Distress Eye Exam: Positive: Conjunctiva & lids normal; Negative: Sclera icteric ENT Exam: Positive: Mucous membr. moist/pink Neck Exam: Negative: Lymphadenopathy Chest Exam: Positive: Clear to auscultation, Diminished Heart Exam: Positive: Rate Normal, Tachycardic, Irregular Rhythm Telemetry: Positive: Atrial fibrillation Abdomen Exam: Positive: Normal bowel sounds, Soft; Negative: Tenderness Extremity Exam: Negative: Clubbing, Cyanosis, Edema Psych Exam: Positive: Mental status NL, Mood NL, Oriented x 3 A-FIB/CHADSVASC A-FIB History Current/History of A-Fib/PAF?: Yes Current Oral Anticoagulant The: Yes Assessment /Plan Problems (1) Pneumonia Status: Acute Problem Text: Day #4 azithromycin and Rocephin. Continue Xopenex nebs prn. Continue at home oxygen rate of 2LNC. WBC improved (2) Atrial fibrillation with rapid ventricular response Status: Acute Problem Text: Rate reasonably but not ideally controlled with Verapamil and the increased dose of Toprol XL. I'm not inclined to change his chronotropic medications much more because his blood pressure might drop too low. INR = 2.18. Continue Warfarin for anti-coagulation; we'll need to watch his level carefully as he is on antibiotics. (3) Diabetes mellitus Status: Chronic Problem Text: His diet is improving and his sugars are rising again. At home he is on insulin glargine 50 units twice daily. I'm going to start him on 10 units of Levemir tonight. I have a strong suspicion that his diet is much different h ere than it is at home (4) Fall Status: Acute Problem Text: Per Pt - not safe as of last therapy session. I will ask for reevaluation of his discharge tomorrow is a possible. (5) HTN (hypertension) Status: Chronic Response to Treatment: Stable Problem Text: Losartan and Torsemide on hold currenlty. BP 120s/80s. (6) COPD (chronic obstructive pulmonary disease) Status: Chronic Response to Treatment: Stable Problem Text: On chronic oxygen (7) CKD (chronic kidney disease) stage 3, GFR 30-59 ml/min Status: Chronic Response to Treatment: Stable (8) Gout Status: Chronic Response to Treatment: Stable Plan/VTE VTE Prophylaxis Ordered?: Yes (warfarin) Plan Therapy: PT VS, I&O, 24H, Fishbone Vital Signs/I&O Vital Signs Date Time Temp Pulse Resp B/P (MAP) Pulse Ox O2 Delivery O2 Flow Rate FiO2 03/04/19 12:00 2.0 03/04/19 12:00 97.1 95 18 142/84 (103) 97 03/01/19 10:19 Nasal Cannula I&O- Last 24 Hours up to 6 AM 03/04/19 06:00 Intake Total 905 ml Output Total 1475 ml Balance -570 ml Laboratory Data 24H LABS Laboratory Tests 2 03/03/19 21:09: Bedside Glucose (Misc Panel) 207H 03/04/19 05:00: Immature Granulocyte % (Auto) 0.7, White Blood Count 14.7H, Red Blood Count 4.62, Hemoglobin 13.1L, Hematocrit 41.1L, Mean Corpuscular Volume 89.0, Mean Corpuscular Hemoglobin 28.4, Mean Corpuscular Hemoglobin Concent 31.9L, Red Cell Distribution Width 18.5H, Platelet Count 300, Neutrophils (%) (Auto) 72.6H, Lymphocytes (%) (Auto) 12.0L, Monocytes (%) (Auto) 11.6H, Eosinophils (%) (Auto) 2.7, Basophils (%) (Auto) 0.4, Neutrophils # (Auto) 10.7H, Lymphocytes # (Auto) 1.8, Monocytes # (Auto) 1.7H, Eosinophils # (Auto) 0.4, Basophils # (Auto) 0.1, Nucleated Red Blood Cells % (auto) 0.0, Anion Gap 5L, Glomerular Filtration Rate 45.3, Blood Urea Nitrogen 28H, Creatinine 1.58H, Sodium Level 141, Potassium Level 4.2, Chloride Level 110H, Carbon Dioxide Level 26, Calcium Level 8.2L, Magnesium Level 2.4, C-Reactive Protein, Quantitative 8.13H 03/04/19 05:35: Prothrombin Time 24.7H, Prothromb Time International Ratio 2.18 03/04/19 11:56: Bedside Glucose (Misc Panel) 183H 03/04/19 17:01: Bedside Glucose (Misc Panel) 186H CBC/BMP Laboratory Tests 03/04/19 05:00 Red Blood Count 4.62, Mean Corpuscular Volume 89.0, Mean Corpuscular Hemoglobin 28.4, Mean Corpuscular Hemoglobin Concent 31.9 L, Red Cell Distribution Width 18.5 H, Neutrophils (%) (Auto) 72.6 H, Lymphocytes (%) (Auto) 12.0 L, Monocytes (%) (Auto) 11.6 H, Eosinophils (%) (Auto) 2.7, Basophils (%) (Auto) 0.4, Neutrophils # (Auto) 10.7 H, Lymphocytes # (Auto) 1.8, Monocytes # (Auto) 1.7 H, Eosinophils # (Auto) 0.4, Basophils # (Auto) 0.1, Calcium Level 8.2 L Microbiology Microbiology 03/01/19 Blood Culture - Preliminary, Resulted No Growth after 72 hours. All specime... 03/01/19 Blood Culture - Preliminary, Resulted No Growth after 72 hours. All specime... 03/03/19 Gram Stain - Final, Resulted 03/03/19 Sputum Culture, Resulted Pending 03/01/19 Respiratory Virus Panel (PCR) ([facility]AK[facility]) - Final, Complete Uriel Escobar MD Mar 04, 2019 17:05
[2019-03-04] MEDS: WARFARIN SOD 1 MG TAB PO SCH (17:08)
[2019-03-04 20:00] VITALS: BP 130/72
[2019-03-04] MEDS: PRAVASTATIN 20 MG TAB PO SCH (20:12)
[2019-03-04] MEDS ORDERED: LEVEMIR (INSULIN DETEMIR) 1 UNITS/0.01ML SC SCH (21:00)
[2019-03-05] VITALS: BP 132/84
[2019-03-05 04:00] VITALS: BP 134/80
[2019-03-05] MEDS: SLF 3 ML SYR IV SCH ×2 (05:22→14:00)
[2019-03-05 05:54] LABS: BASO % 0.3 % (0.0-1.0); EOS # 0.4 10^3/uL (0.0-0.50); EOS % 2.6 % (0.0-3.0); HEMOGLOBIN 12.7 g/dl (13.5-17.5); LYMPH # 1.8 10^3/uL (1.5-4.5); LYMPH % 13.5 % (24.0-44.0); MEAN CORPUSCULAR HEMOGLOBIN 28.3 pg (27.0-33.0); MEAN CORPUSCULAR HGB CONC 31.8 g/dl (32.0-36.5); MEAN CORPUSCULAR VOLUME 89.1 fl (80.0-96.0); MONO # 1.5 10^3/uL (0.0-0.8); MONO % 10.9 % (0.0-5.0); NEUTROPHILS # 9.7 10^3/uL (1.8-7.7); PLATELET COUNT, AUTOMATED 306 10^3/uL (150-450); RED BLOOD COUNT 4.49 10^6/uL (4.30-6.10); WHITE BLOOD COUNT 13.5 10^3/uL (4.0-10.0)
[2019-03-05 06:10] LABS: C REACTIVE PROTEIN QUANTITATIV 6.32 MG/DL (0.00-0.30); CALCIUM LEVEL 8.4 MG/DL (8.8-10.2); CREATININE FOR GFR 1.5 MG/DL (0.70-1.30); GLOMERULAR FILTRATION RATE 48.1 (>42); INR 2.09; MAGNESIUM LEVEL 2.5 MG/DL (1.8-2.4); POTASSIUM SERUM 4.4 MEQ/L (3.5-5.1); PROTHROMBIN TIME 23.9 SECONDS (12.1-14.4)
[2019-03-05] MEDS: LEVALBUTEROL 1.25 MG/0.5 ML CONCENTRATE NEB INH SCH ×2 (08:00→12:17)
[2019-03-05 08:17] VITALS: BP 130/85
[2019-03-05] MEDS: HumaLOG INSULIN (NovoLOG) PER UNIT SC SCH ×2 (08:32→13:21)
[2019-03-05] MEDS: OMEPRAZOLE 20 MG CAP PO SCH (08:32)
[2019-03-05] MEDS: VITAMIN D 1,000 INTERNATIONAL UNITS TABLET PO SCH (08:32)
[2019-03-05] MEDS: BACITRACIN OINT 30GM TOP SCH (08:33)
[2019-03-05] MEDS: ALLOPURINOL 100 MG TAB PO SCH (08:33)
[2019-03-05] MEDS: METOPROLOL SUCC *XL* 25MG TAB (TopROL *XL*) PO SCH (08:33)
[2019-03-05 08:39] VITALS: BP 130/85
[2019-03-05] MEDS: VERAPAMIL 120 MG SR TAB PO SCH (08:39)
[2019-03-05] MEDS: TIOTROPIUM INHALER/CAPSULE (SPIRIVA) INH SCH (09:04)
[2019-03-05] MEDS: SYMBICORT 160/4.5MCG INHALER 6GM INH SCH (09:04)
[2019-03-05 12:00] VITALS: BP 128/78
[2019-03-05] MEDS ORDERED: CEFD300CAP PO (13:16)
[2019-03-05] MEDS ORDERED: METO1TAB32 PO (13:18)
[2019-03-05] MEDS: cefTRIAXone SOD 1 GM in D5W MINI-BAG PLUS 50 ML IV SCH (13:19)
--- NOTE | 2019-03-05 13:33 | DS.PDOC ---
Discharge Summary General Date of Admission Mar 01, 2019 at 12:51 Date of Discharge 03/05/19 Primary Care Physician: Ted Menard MD Attending Physician: Uriel Escobar MD Discharge Summary PROCEDURES PERFORMED DURING STAY: [None]. ADMITTING DIAGNOSES: 1. . DISCHARGE DIAGNOSES: 1. . COMPLICATIONS/CHIEF COMPLAINT: A-Fib With Rapid Venrticular Response,Pneumonia. HISTORY OF PRESENT ILLNESS: . HOSPITAL COURSE: . DISCHARGE MEDICATIONS: Please see below. ALLERGIES: Please see below. PHYSICAL EXAMINATION ON DISCHARGE: VITAL SIGNS: Please see below. GENERAL: HEENT: NECK: CARDIOVASCULAR EXAMINATION: RESPIRATORY EXAMINATION: ABDOMINAL EXAMINATION: EXTREMITIES: SKIN: NEUROLOGICAL EXAMINATION: PSYCHIATRIC EXAMINATION: LABORATORY DATA: Please see below. IMAGING: PROGNOSIS: ACTIVITY: [As tolerated]. DIET: DISCHARGE PLAN: DISPOSITION: . DISCHARGE INSTRUCTIONS: 1. . ITEMS TO FOLLOWUP ON ON OUTPATIENT: 1. . DISCHARGE CONDITION: [Stable]. TIME SPENT ON DISCHARGE: Greater than minutes. Vital Signs/I&Os Vital Signs Date Time Temp Pulse Resp B/P (MAP) Pulse Ox O2 Delivery O2 Flow Rate FiO2 03/05/19 12:00 98.5 98 18 128/78 (95) 95 2.0 03/01/19 10:19 Nasal Cannula I&O- Last 24 Hours up to 6 AM 03/05/19 05:59 Intake Total 1265 ml Output Total 900 ml Balance 365 ml Laboratory Data Labs 24H Laboratory Tests 2 03/04/19 17:01: Bedside Glucose (Misc Panel) 186H 03/04/19 19:52: Bedside Glucose (Misc Panel) 171H 03/05/19 05:27: Immature Granulocyte % (Auto) 0.7, White Blood Count 13.5H, Red Blood Count 4.49, Hemoglobin 12.7L, Hematocrit 40.0L, Mean Corpuscular Volume 89.1, Mean Corpuscular Hemoglobin 28.3, Mean Corpuscular Hemoglobin Concent 31.8L, Red Cell Distribution Width 18.3H, Platelet Count 306, Neutrophils (%) (Auto) 72.0H, Lymphocytes (%) (Auto) 13.5L, Monocytes (%) (Auto) 10.9H, Eosinophils (%) (Auto) 2.6, Basophils (%) (Auto) 0.3, Neutrophils # (Auto) 9.7H, Lymphocytes # (Auto) 1.8, Monocytes # (Auto) 1.5H, Eosinophils # (Auto) 0.4, Basophils # (Auto) 0.0, Nucleated Red Blood Cells % (auto) 0.0, Prothrombin Time 23.9H, Prothromb Time International Ratio 2.09, Anion Gap 3L, Glomerular Filtration Rate 48.1, Blood Urea Nitrogen 26H, Creatinine 1.50H, Sodium Level 140, Potassium Level 4.4, Chloride Level 110H, Carbon Dioxide Level 27, Calcium Level 8.4L, Magnesium Level 2.5H, C-Reactive Protein, Quantitative 6.32H 03/05/19 11:36: Bedside Glucose (Misc Panel) 158H CBC/BMP Laboratory Tests 03/05/19 05:27 Red Blood Count 4.49, Mean Corpuscular Volume 89.1, Mean Corpuscular Hemoglobin 28.3, Mean Corpuscular Hemoglobin Concent 31.8 L, Red Cell Distribution Width 18.3 H, Neutrophils (%) (Auto) 72.0 H, Lymphocytes (%) (Auto) 13.5 L, Monocytes (%) (Auto) 10.9 H, Eosinophils (%) (Auto) 2.6, Basophils (%) (Auto) 0.3, Neutrophils # (Auto) 9.7 H, Lymphocytes # (Auto) 1.8, Monocytes # (Auto) 1.5 H, Eosinophils # (Auto) 0.4, Basophils # (Auto) 0.0, Calcium Level 8.4 L FSBS Laboratory Tests Test 03/04/19 17:01 03/04/19 19:52 03/05/19 11:36 Range/Units Bedside Glucose (Misc Panel) 186 171 158 83-110 MG/DL Microbiology Microbiology 03/01/19 Blood Culture - Preliminary, Resulted No Growth after 72 hours. All specime... 03/01/19 Blood Culture - Preliminary, Resulted No Growth after 72 hours. All specime... 03/03/19 Gram Stain - Final, Complete 03/03/19 Sputum Culture - Final, Complete Yeast Like Organism 03/01/19 Respiratory Virus Panel (PCR) ([facility]AK[facility]) - Final, Complete Discharge Medications Scheduled Allopurinol (Allopurinol) 100 Mg Tab, 300 MG PO DAILY, (Reported) Budesonide/Formoterol (Symbicort 160-4.5 Mcg Inhaler) 60 Puff/Inhaler Aers, 2 PUFF INH BID, (Reported) Cefdinir (Cefdinir) 300 Mg Capsule, 300 MG PO BID Cholecalciferol (Vitamin D3) (Vitamin D3) 1,000 Unit Cap, 2,000 UNIT PO DAILY, (Reported) Digoxin (Digoxin) 125 Mcg Tab, 125 MCG PO Q2D, (Reported) Insulin Aspart (Novolog Flexpen) 100 Unit/Ml Inj, 1 DOSE SC AC, (Reported) per sliding scale Insulin Glargine (Lantus) 100 Unit/Ml Inj, 50 UNIT SC BID, (Reported) Losartan Potassium (Losartan Potassium) 25 Mg Tab, 12.5 MG PO DAILY, (Reported) Metoprolol Succinate (Metoprolol Succinate) 25 Mg Tab.er.24h, 25 MG PO DAILY Omeprazole (Omeprazole) 20 Mg Cap, 40 MG PO DAILY, (Reported) Pravastatin Sodium (Pravastatin Sodium) 40 Mg Tab, 40 MG PO QHS, (Reported) Spironolactone (Spironolactone) 25 Mg Tab, 25 MG PO BID, (Reported) Tiotropium [place] (Spiriva) 18 Mcg Cap, 18 MCG INH DAILY, (Reported) Torsemide (Torsemide) 20 Mg Tab, 40 MG PO BID, (Reported) TAKES AM/1600 Verapamil HCl (Verapamil ER) 120 Mg Tabcr, 120 MG PO DAILY, (Reported) Vit C/Vit E AC/Lut/Copper/Zinc (Preservision Lutein Softgel) 1 Cap Cap, 1 CAP PO DAILY, (Reported) Warfarin Sod (Coumadin) 1 Mg Tablet, 1.5 MG PO QWEEK, (Reported) MONDAYS 1700 Warfarin Sodium (Warfarin Sodium) 1 Mg Tab, 1 MG PO 6XWK, (Reported) SUN//WED//FRI/SAT AT 1700 Scheduled PRN Albuterol Sulfate (Proair Hfa) 108 Mcg/Act Aer, 2 PUFF INH Q4H PRN for SHORTNESS OF BREATH, (Reported) Carboxymethylcellulose Sodium (Refresh Tears) 0.5 % Good, 1 DROP OU BIDP PRN for DRY EYES, (Reported) Dextrose (Glucose) 4 Gm Tab.chew, 4 GM PO ASDIRECTED PRN for LOW BLOOD SUGAR, (Reported) Oxycodone HCl/Acetaminophen (Oxycodone-Acetaminophen 5-325) 1 Tab Tab, 1 TAB PO TID PRN for PAIN, (Reported) Sennosides/Docusate Sodium (Senna-S Tablet) 1 Each Tablet, 2 TAB PO TID PRN for CONSTIPATION, (Reported) Sodium Chloride (Saline Nasal [place]) 44 Ml [place], 1 SPRAY [place]ARES QID PRN for NASAL DRYNESS, (Reported) Allergies Coded Allergies: Penicillins (Verified Adverse Reaction, Mild, upset stomach, 02/02/19) aspirin (Verified Adverse Reaction, Mild, nose bleeds, 02/02/19) Uriel Escobar MD Mar 05, 2019 13:32
[2019-03-05] MEDS: AZITHROMYCIN INJ 500 MG, VIAL MATE ADAPTER 1 EACH in D5W 250 ML IV SCH (14:00)
[2019-03-06] MEDS ORDERED: WARFARIN SOD 3 MG TAB PO SCH (17:00)
== END 2019-03-05 15:55 | disposition home health service (06) | DRG 308 ==
LOC: M ED 09:55 → EDBD 09:55 → M ED INP 12:51 → M PCU 16:36
PROVIDERS: ADMIT Internal Medicine; ATTEND Family Medicine
DX: I48.91 Unspecified atrial fibrillation (principal); J18.9 Pneumonia, unspecified organism; I12.9 Hypertensive chronic kidney disease with stage 1 through stage 4 chronic kidney disease, or unspecified chronic kidney disease; E78.5 Hyperlipidemia, unspecified; J44.9 Chronic obstructive pulmonary disease, unspecified; R91.1 Solitary pulmonary nodule; N18.3 Chronic kidney disease, stage 3 (moderate); M10.9 Gout, unspecified; E10.649 Type 1 diabetes mellitus with hypoglycemia without coma; E10.22 Type 1 diabetes mellitus with diabetic chronic kidney disease; K21.9 Gastro-esophageal reflux disease without esophagitis; Z85.46 Personal history of malignant neoplasm of prostate; Z79.4 Long term (current) use of insulin; Z79.01 Long term (current) use of anticoagulants; Z79.899 Other long term (current) drug therapy; Z88.0 Allergy status to penicillin; Z88.6 Allergy status to analgesic agent; Z92.3 Personal history of irradiation; Z85.51 Personal history of malignant neoplasm of bladder; Z87.891 Personal history of nicotine dependence

== ENCOUNTER → 2019-03-30 | Outpatient (REF) | payer MEDICARE ==
[~2019-03-30] MED LIST changes: +CEFD300CAP PO; +DEXT4TAB15 PO; +HM S0.65 NARES; -METOPROLOL SUCC *XL* 25MG TAB (TopROL *XL*) PO SCH; +SENN-23 PO; +WARF05TA PO
[2019-03-30 16:33] LABS: BASO % 0.2 % (0.0-1.0); EOS # 0.6 10^3/uL (0.0-0.50); EOS % 2.7 % (0.0-3.0); HEMATOCRIT 43.1 % (42.0-52.0); HEMOGLOBIN 13.5 g/dl (13.5-17.5); LYMPH % 9.5 % (24.0-44.0); MEAN CORPUSCULAR HEMOGLOBIN 28.7 pg (27.0-33.0); MEAN CORPUSCULAR HGB CONC 31.3 g/dl (32.0-36.5); MEAN CORPUSCULAR VOLUME 91.7 fl (80.0-96.0); MONO % 11.1 % (0.0-5.0); NEUTROPHILS # 15.7 10^3/uL (1.8-7.7); NEUTROPHILS % 75.9 % (36.0-66.0); PLATELET COUNT, AUTOMATED 322 10^3/uL (150-450); WHITE BLOOD COUNT 20.8 10^3/uL (4.0-10.0)
[2019-03-30 16:49] LABS: CALCIUM LEVEL 8.9 MG/DL (8.8-10.2); CREATININE FOR GFR 1.77 MG/DL (0.70-1.30); DIGOXIN LEVEL 0.9 NG/ML (0.5-2.0); GLOMERULAR FILTRATION RATE 39.7 (>42); POTASSIUM SERUM 4.3 MEQ/L (3.5-5.1)
[2019-03-30 17:12] LABS: MONO # 2.3 10^3/uL (0.0-0.8)
== END ==
LOC: M SFHCCLAY 10:54
PROVIDERS: ATTEND Family Medicine
DX: N18.9 Chronic kidney disease, unspecified (principal); E11.22 Type 2 diabetes mellitus with diabetic chronic kidney disease; J44.9 Chronic obstructive pulmonary disease, unspecified
CPT/HCPCS: 80048; 80162; 85025; G0463

== ENCOUNTER → 2019-04-14 | Outpatient (CLI) | payer MEDICARE ==
--- NOTE | 2019-04-14 14:19 | REP ---
Chest two views HISTORY: Left lower lobe pneumonia Comparison: 09/14/2018 A minimal increase in interstitial markings is present in the lower lobes consistent with chronic interstitial change. Calcified granuloma are present. The heart is normal in size. The pulmonary vasculature is normal in appearance. Degenerative change is present in the thoracic spine. IMPRESSION: Bibasilar chronic interstitial change.
== END ==
LOC: M CLY 13:11
PROVIDERS: ATTEND Family Medicine
DX: N18.9 Chronic kidney disease, unspecified (principal); J18.9 Pneumonia, unspecified organism

== ENCOUNTER → 2019-04-24 | Outpatient (CLI) | payer MEDICARE ==
--- NOTE | 2019-04-25 08:44 | REP ---
Soft-tissue neck CT study without contrast: History: Localized swelling, mass and lump. Comparison CT study of the cervical spine is from March 01, 2019. Comparison soft tissue neck CT exam is from August 25, 2018. There is apparently a history of prostate carcinoma and bladder tumor. Technique: A radiopaque skin marker is affixed to the skin at the site of the palpable lump. Noncontrast CT study is acquired. Findings: There is an asymmetric deposit of benign homogeneous fatty tissue deep to the upper portion of the platysma in the left perimandibular region compared to the right. This is superficial to the left masseter muscle and anterior to the anterior margin of the parotid gland. It is at the level of the opaque BB marker. Its approximate dimensions are 5.7 x 2.1 x 5.3 cm. It is compatible with a deep subcutaneous lipoma and appears benign and homogeneous. No soft tissue tumor is seen in either parotid gland. There is no evidence of adenopathy. There is a small nodule of accessory submandibular salivary tissue just anterior to the main salivary gland on the left as well. These findings are unchanged from August 2018. No other mass or adenopathy is seen. Some vascular calcification is observed. Thyroid lobes are normal and symmetric. The lung apices shows mild emphysematous changes but are otherwise clear. No bony destructive lesion is appreciated. There are degenerative spondylosis changes in the cervical spine unchanged from the prior study. No bony destructive lesion is seen in the mandible. Nasal cannula oxygen delivery tubing is noted. There is a tiny air fluid level in the right maxillary sinus. Impression: There is evidence of a benign deep facial lipoma in the left perimandibular region just lateral to the left masseter muscle and the angle of the mandible. No other evidence of mass or adenopathy is seen. Electronically Signed by Weston Walker MD 04/25/2019 12:15 P
== END ==
LOC: M RAD 17:32
PROVIDERS: ATTEND Otolaryngology
DX: R22.0 Localized swelling, mass and lump, head (principal)

== ENCOUNTER → 2019-05-17 | Outpatient (CLI) | payer MEDICARE ==
[~2019-05-17] MED LIST changes: +E-Z-PAQUE 96% w/w SUSP 176GM BTL As Ordered ONE; -OMEP20CA3 PO; +OMEP20CA4 PO
--- NOTE | 2019-05-17 13:26 | REP ---
SMALL BOWEL SERIES: AP view of the abdomen and pelvis demonstrates an unremarkable bowel gas pattern. There are degenerative changes of the spine. Single contrast barium was ingested. Stomach demonstrates normal rugal folds with no gross filling defect. Duodenal bulb is swell distended with smooth margins. Duodenal sweep demonstrates normal mucosal folds, as does the jejunum. No stricture or persistent filling defect is seen in any portion of the small bowel. There is no abnormal displacement of small bowel loops. Terminal ileum appears normal. No mucosal fold thickening is seen. Right colon is visualized at 2 hour howie following ingestion of the barium. IMPRESSION: Unremarkable small bowel series. Fluoroscopy time 1.1 minutes. Electronically Signed by Farzad Merchant MD 05/19/2019 12:30 P
== END ==
LOC: M RAD 07:55
PROVIDERS: ATTEND Internal Medicine Gastroenterology
DX: D64.9 Anemia, unspecified (principal)

== ENCOUNTER → 2020-10-08 | Outpatient (CLI) | payer OTHER ==
[~2020-10-08] MED LIST changes: +DIGO0.123 PO; -E-Z-PAQUE 96% w/w SUSP 176GM BTL As Ordered ONE; +FLUO20CA20 PO; -FLUO20CA8 PO; +OMEP1CAP73 PO; -OMEP20CA4 PO; -OMEP40CA2 PO; +OMEP40CA97 PO; -VERA120T2 PO; +VERA120T9 PO
--- NOTE | 2020-10-09 14:06 | ECHO ---
DATE OF PROCEDURE: 10/08/2020 Age: 80 Gender: Male Height: 183 cm Weight: 127 kg REFERRING PHYSICIAN: Teresa Pike NP INDICATION: Congestive heart failure. MEASUREMENTS: IVS 1.0 cm LV 5.6 cm LVPW 1.1 cm LA 4.9 cm Aorta 3.3 cm RV 4.3 cm IVC 2.4 cm FINDINGS: This study is of very limited technical quality corresponding to patients body habitus. There is underlying irregular rhythm, I suspect either atrial flutter or fibrillation. The EKG signal was of very poor quality. Left ventricle is borderline dilated. It appears to have overall preserved contractility based on limited views. I certainly cannot rule out segmental wall motion abnormalities with any degree of certainty. The right ventricle appears at least mildly dilated. Both atria appear at least moderately enlarged. Aortic valve is sclerotic, but otherwise has preserved mobility. There are also mild degenerative abnormalities of the mitral valve, but mobility of leaflets is preserved. Tricuspid and pulmonic valves appear grossly normal based on limited views. There is no pericardial effusion. Inferior vena cava is dilated indicative of elevated central venous pressure. The aortic root is normal. The aortic arch and abdominal aorta were not well seen. Doppler interrogation reveals no significant stenosis or insufficiency. There is mild mitral and tricuspid insufficiency. Calculated pulmonary artery pressure is at least the mid to high 40s, based on fair quality of TR jet. Pulmonic valves exhibit trace insufficiency. Evaluation of diastolic function is inconclusive due to underlying irregular rhythm. CONCLUSIONS: 1. Patient is in likely atrial fibrillation with narrow QRS complex. 2. Borderline dilated left ventricle with preserved left ventricular (LV) systolic function. Unable to accurately estimated diastolic function. 3. Right ventricle appears dilated. 4. Biatrial enlargement. 5. Aortic sclerosis, but no significant stenosis or insufficiency. 6. Mild mitral and tricuspid insufficiency. 7. High central venous pressure and at least moderate pulmonary hypertension. MTDD
== END ==
LOC: M CARPUL 09:22
PROVIDERS: ATTEND Nurse Practitioner Family
DX: I50.9 Heart failure, unspecified (principal)

== ENCOUNTER → 2020-10-15 | Outpatient (CLI) | payer OTHER ==
--- NOTE | 2020-10-15 17:14 | REP ---
INDICATION: PROTEINURIA. COMPARISON: 04/23/2015. TECHNIQUE: Real-time sonographic evaluation of the kidneys is performed. FINDINGS: Renal cortical echogenicity pattern is normal bilaterally and contours are smooth. There is mild cortical thinning bilaterally. There is no evidence of hydronephrosis, cyst, mass, or calculus in either kidney. The right kidney measures 12.0 x 6.2 x 4.9 cm. Left renal dimensions are 11.9 x 5.3 x 5.6 cm. IMPRESSION: Mild cortical thinning. Otherwise negative renal ultrasound. No hydronephrosis. <Electronically signed by Farzad Merchant > 10/15/20 [id number]
--- NOTE | 2020-10-15 17:16 | REP ---
INDICATION: CKD. COMPARISON: None. TECHNIQUE: Real-time sonographic evaluation of urinary bladder performed. FINDINGS: Bladder measures 10.4 x 8.1 x 5.3 cm, total volume 293 cc. Postvoid residual is actually of greater volume of 323 cc. The patient attempted to void but was unable to do so. There is diffuse mild thickening and trabeculation of the bladder wall with no focal mass and no evidence of intraluminal calculus. Prostate measures 4.2 x 3.7 x 4.5 cm. IMPRESSION: Mild diffuse thickening and trabeculation of the bladder wall. Somewhat enlarged prostate as discussed above. Patient was unable to void. <Electronically signed by Farzad Merchant > 10/15/20 [id number]
== END ==
LOC: M RAD 15:17
PROVIDERS: ATTEND Nurse Practitioner Family
DX: R80.9 Proteinuria, unspecified (principal)

== ENCOUNTER 2021-03-23 10:57 | Inpatient (IN) | payer MEDICARE, OTHER ==
[~2021-03-23] VITALS: Ht 182.9 cm; Wt 134.4 kg
[~2021-03-23 10:57] MED LIST changes: +D31000TA2 PO; +ELIQ5TAB PO
--- NOTE | 2021-03-23 11:31 | REP ---
INDICATION: DYSPNEA/COUGH. COMPARISON: 04/14/2019. TECHNIQUE: Single portable AP view of the chest was performed. FINDINGS: There are chronic diffuse increased interstitial markings which do not appear significantly changed compared to prior study. No definite superimposed acute infiltrate is seen. There is mild cardiomegaly. There is calcification of the thoracic aorta with no change in the mediastinal silhouette. There is chronic blunting of the costophrenic angles unchanged. IMPRESSION: No acute pulmonary disease.Stable chronic changes as discussed above. <Electronically signed by Farzad Merchant > 03/23/21 [id number]
[2021-03-23] MEDS ORDERED: FUROSEMIDE 40MG/4ML VIAL (J1940) IV ONE (11:45)
[2021-03-23] MEDS ORDERED: FUROSEMIDE 100MG/10ML VIAL (J1940) IV ONE (11:45)
[2021-03-23 12:04] LABS: VENOUS BASE EXCESS 5.3 (-2.0-2.0); VENOUS HCO3 33.7 MEQ/L (23.0-27.0); VENOUS O2 SATURATION 67.2 % (60.0-80.0); VENOUS PARTIAL PRESSURE O2 36.5 mmHg (30.0-50.0); VENOUS PH 7.319 UNITS (7.330-7.430); VENOUS STANDARD HCO3 28.4 MEQ/L; VENOUS TOTAL CO2 35.7 MEQ/L (24.0-28.0)
[2021-03-23 12:06] LABS: BASO # 0.1 10^3/uL (0.0-0.2); BASO % 0.3 % (0.0-1.0); EOS # 0.4 10^3/uL (0.0-0.5); EOS % 2.8 % (0.0-3.0); HEMATOCRIT 43.1 % (42.0-52.0); HEMOGLOBIN 13.3 g/dl (13.5-17.5); LYMPH # 1.3 10^3/uL (1.5-5.0); MEAN CORPUSCULAR HGB CONC 30.9 g/dl (32.0-36.5); MEAN CORPUSCULAR VOLUME 97.1 fl (80.0-96.0); MONO # 1.5 10^3/uL (0.0-0.8); NEUTROPHILS # 11.1 10^3/uL (1.5-8.5); NEUTROPHILS % 76.9 % (36.0-66.0); PLATELET COUNT, AUTOMATED 256 10^3/uL (150-450); RED BLOOD COUNT 4.44 10^6/uL (4.30-6.10)
[2021-03-23] MEDS ORDERED: SITA50TAB PO (12:13)
[2021-03-23] MEDS ORDERED: METO1TAB33 PO (12:13)
[2021-03-23] MEDS ORDERED: CYMB1CAP5 PO (12:13)
[2021-03-23] MEDS ORDERED: methylPREDNISolone 125MG 2ML VIAL IV ONE (12:20)
[2021-03-23 12:23] LABS: WHITE BLOOD COUNT 14.4 10^3/uL (4.0-10.0)
[2021-03-23 12:24] LABS: MONO % 10.5 % (2.0-8.0)
[2021-03-23 12:37] LABS: ALBUMIN 3.1 GM/DL (3.2-5.2); ALT/SGPT 35 U/L (12-78); BILIRUBIN,DIRECT 0.2 MG/DL (0.0-0.2); BILIRUBIN,TOTAL 0.4 MG/DL (0.2-1.0); BLOOD UREA NITROGEN 33 MG/DL (7-18); CALCIUM LEVEL 8.9 MG/DL (8.8-10.2); CARBON DIOXIDE LEVEL 38 MEQ/L (21-32); CHLORIDE LEVEL 104 MEQ/L (98-107); CK-MB VALUE MASS 1.7 NG/ML (<3.6); CPK CREATINE PHOSPHOKINASE 51 U/L (39-308); CREATININE FOR GFR 1.63 MG/DL (0.70-1.30); GLOMERULAR FILTRATION RATE 43.4 (>35); GLUCOSE, FASTING 144 MG/DL (70-100); MB/CK RELATIVE INDEX 3.33 (< OR =4); NT-PRO BNP 946 PG/ML (<450); POTASSIUM SERUM 4.2 MEQ/L (3.5-5.1); SODIUM LEVEL 142 MEQ/L (136-145); TOTAL PROTEIN 6.3 GM/DL (6.4-8.2); TROPONIN I < 0.02 NG/ML (< 0.10)
[2021-03-23] MEDS ORDERED: ALBUTEROL SULFATE 2.5 MG/0.5 ML INH NEB SOLN NEB PRN (13:35)
[2021-03-23] MEDS ORDERED: ACETAMINOPHEN TAB 650MG DOSE (2X325MG) PO PRN (13:35)
[2021-03-23] MEDS ORDERED: MOM 30ML SUSPENSION UDC PO PRN (13:35)
[2021-03-23] MEDS: IPRATROPIUM 0.5MG/ALBUTEROL 2.5MG INH SOL UD 3ML (DUONEB) NEB SCH ×2 (14:00→18:30)
[2021-03-23] MEDS ORDERED: POLYVINYL ALCOHOL OPHTH SOLN 15 ML(LIQUITEARS) OU PRN (14:25)
[2021-03-23] MEDS ORDERED: SODIUM CHLORIDE NASAL 0.65% SPRAY BTL (OCEAN) PRN (14:25)
[2021-03-23] MEDS ORDERED: SENOKOT S TAB PO PRN (14:25)
[2021-03-23] MEDS ORDERED: GLUCAGON INJ 1MG VIAL SC PRN (14:25)
[2021-03-23] MEDS ORDERED: DEXTROSE 50% 50 ML SYRINGE IV PRN (14:25)
[2021-03-23] MEDS ORDERED: GLUCOSE 4GM CHEW TABLET PO PRN (14:25)
--- NOTE | 2021-03-23 15:08 | HPEPDOC ---
[facility] Medical History & Physical Date of Admission March 23, 2021 Date of Service: March 23, 2021 Attending Physician: SATNAM PACHECO MD History and Physical CHIEF COMPLAINT: SOB, cough, worsening swelling of legs and inability to ambulate per baseline. History of Present Illness 80-year-old male with a PMHx of A. fib on eliquis, HTN, DLP, IDDM1, COPD on 2L O2, Lung nodule (follows w/ Dr. Barnhart), Prosate CA s/p radiation, Bladder CA s/p surgery, CKD3, Gout, GERD, HFpEF who presented to the emergency room after worsening dyspnea, worsening LE edema despite home torsemide and co ugh with audible wheezing at home. His reports that he declined being taken to the hospital multiple times in the past few weeks when she was suggesting it but an inability to ambulate prompted this ED presentation. At baseline, he lives at home with his and adult son who provide most of his care. He ambulates a few steps within the house with a walker often with standby assistance. He has some services? but the reports that it is mostly her and her son who provide his care. His recent symptoms that have been progressive include SOB at rest, worse with exertion, lower extremity swelling, decreased ability to ambulate and increase oxygen requirements at home from his baseline 3 L. He has also had an unchanged chronic cough. He otherwise has not had any noted fever, chills, abdominal pain, asymmetrical weakness, speech slurring, loss of consciousness, nausea, emesis, diarrhea, chest pain, palpitations, lightheadedness, dizziness, hemoptysis, hematemesis, hematuria, hematochezia or report of brenda melena. In the ED, he was normotensive, requiring his baseline 3L, HR 105, and exam was notable for brenda expiratory wheezing and posterior crackles with 3+ LE edema to knees. He was given lasix 160mg IV once, albuterol/ipratropium mdi and solumedrol 125mg IV. Studies were notable for unremarkable CXR without brenda infiltrates with chronic interstitial markings, WBC 14.4 at his known baseline with a history of chronic leukocytosis, Hgb 13.3, platelets 256, Na 142, K 4.2, Cr 1.63 at his recent baseline, lactic acid 1.5, troponin <0.02, proBNP 946. He is now being admitted for HFpEF exacerbation and COPD exacerbation. Allergies Coded Allergies: Penicillins (Verified Adverse Reaction, Mild, upset stomach, 02/02/19) aspirin (Verified Adverse Reaction, Mild, nose bleeds, 02/02/19) Past Medical History A. fib (on eliquis), HTN, DLP, IDDM1, COPD on 2L O2, Lung nodule (follows w/ Dr. Barnhart), Prosate CA s/p radiation, Bladder CA s/p surgery, CKD3, Gout, GERD Surgical History Transurethral resection of the bladder. 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 Review of Systems 10 point review of systems was completed, all negative otherwise stated in HPI Vital Signs Vitals: see below General: Morbidly obese, lying in bed, no acute distress, speaking in short sentences with pauses HEENT: NC, AT, PERRLA, EOMI, flushed face with nasal canula in place CVS: Irregularly irregular, no noted murmurs or gallops Lungs: Diffuse expiratory wheezing, posterior crackles at bilateral bases Abdomen: Morbidly obese, normoactive sounds, soft, NTND Extremities: 3+ LE extremity edema bilaterally to the knees, no calf tenderness, WWP Neuro: No focal motor or sensory deficit, CN 2-12 intact, speech clear Skin: LE skin with hyperpigmentation, otherwise no rashes Laboratory Data and Imaging: as noted about in HPI, otherwise see below for details Assessment: 80 yo M with a history of chronic Afib, HFpEF, COPD on baseline 3L who is being admitted for COPD exacerbation and CHF exacerbation. HFpEF exacerbation: elevated proBNP, worsening 3+ peripheral edema, crackles on examination -hold home torsemide 60mg daily and start lasix 120mg IV Q8H -strict I/Os -daily weights -consistent carb, 2g sodium, 2L/24h fluid restriction -hold home ARB for hemodynamic freedom for diuresis -daily BMP and Mag COPD exacerbation: Precipitant unclear, possible that wheezing is cardiac but will empirically treat, possible viral not covered on panel, environmental or seasonal allergen -s/p solumedrol 125mg in the ED, start solumedrol 80 Q8H IV -duonebs Q6H scheduled -albuterol nebs Q4HP for wheezing -incentive spirometry -supplementary oxygen, with goal >89% -CXR without brenda infiltrates or effusions -check procalcitonin -respiratory panel negative -continue home mdis Chronic Afib - EKG reviewed, with rate controlled Afib - Troponin x 1 negative - Resume toprol XL 100mg - c/w full anticoagulation with eliquis 5 BID Chronic hypoxemic respiratory failure: -continue supplemental O2, the rest of the plan is above under COPD exacerbation HTN - BP well controlled - Will hold Losartan and Torsemide for now, while giving IV diuresis with lasix DLP - c/w Pravastatin IDDM1 - c/w ISS and Levemir per home dosing - hold januvia - consistent carb, 2g sodium Lung nodule - Follows w/ Dr. Barnhart as an outpatient Prostate CA s/p radiation Bladder CA s/p surgery and BCG CKD3 - Cr appears to be better than baseline Gout - c/w Allopurinol GERD - c/w Omeprazole DVT prophylaxis - On full anticoagulation with eliquis Dispo: medsurg with tele. PT/OT. Vital Signs Vital Signs Date Time Temp Pulse Resp B/P (MAP) Pulse Ox O2 Delivery O2 Flow Rate FiO2 03/23/21 13:15 122/75 (91) Nasal Cannula 3.0 03/23/21 13:12 145 16 97 03/23/21 11:03 97.3 Laboratory Data Labs 24H Laboratory Tests 2 03/23/21 11:52: Immature Granulocyte % (Auto) 0.5, Neutrophils (%) (Auto) 76.9H, Lymphocytes (%) (Auto) 9.0L, Monocytes (%) (Auto) 10.5H, Eosinophils (%) (Auto) 2.8, Basophils (%) (Auto) 0.3, Neutrophils # (Auto) 11.1H, Lymphocytes # (Auto) 1.3L, Monocytes # (Auto) 1.5H, Eosinophils # (Auto) 0.4, Basophils # (Auto) 0.1, Nucleated Red Blood Cells % (auto) 0.0, Blood Gas Bicarbonate Standard 28.4, Venous Blood pH 7.319L, Venous Blood Partial Pressure CO2 67.0H, Venous Blood Partial Pressure O2 36.5, Venous Blood Total Carbon Dioxide 35.7H, Venous Blood HCO3 33.7H, Venous Blood Oxygen Saturation 67.2, Venous Blood Base Excess 5.3H, Anion Gap 0L, Glomerular Filtration Rate 43.4, Lactic Acid Level 1.5, Calcium Level 8.9, Total Bilirubin 0.4, Direct Bilirubin 0.2, Aspartate Amino Transf (AST/SGOT) 15, Alanine Aminotransferase (ALT/SGPT) 35, Alkaline Phosphatase 114, Total Creatine Kinase 51, Creatine Kinase MB 1.7, Creatine Kinase MB Relative Index 3.33, Troponin I < 0.02, JO-Huk-H-Type Natriuretic Peptide 946H, Total Protein 6.3L, A lbumin 3.1L, Albumin/Globulin Ratio 1.0, Thyroid Stimulating Hormone (TSH) 2.040 CBC/BMP Laboratory Tests 03/23/21 11:52 Microbiology Microbiology 03/23/21 Respiratory Virus Panel (PCR) (YAKVO) - Final, Complete 03/23/21 Blood Culture, Received Pending Home Medications Scheduled Allopurinol (Allopurinol) 100 Mg Tab, 300 MG PO DAILY Apixaban (Eliquis) 5 Mg Tablet, 1 TAB PO BID Budesonide/Formoterol (Symbicort 160-4.5 Mcg Inhaler) 60 Puff/Inhaler Aers, 2 PUFF INH BID Cholecalciferol (Vitamin D3) (Vitamin D3) 1,000 Unit Tablet, 2,000 UNITS PO DAILY Duloxetine Hcl (Cymbalta) 30 Mg Capsule.dr, 1 CAP PO DAILY Insulin Aspart (Novolog Flexpen) 100 Unit/Ml Inj, 1 DOSE SC AC per sliding scale Insulin Glargine (Lantus) 100 Unit/Ml Inj, 20 UNIT SC BID Losartan Potassium (Losartan Potassium) 25 Mg Tab, 25 MG PO DAILY Metoprolol Succinate (Metoprolol Succinate) 100 Mg Tab.er.24h, 1 TAB PO DAILY Omeprazole (Omeprazole) 20 Mg Cap, 20 MG PO DAILY Pravastatin Sodium (Pravastatin Sodium) 40 Mg Tab, 40 MG PO QHS Sitagliptin (Januvia) 50 Mg Tablet, 1 TAB PO DAILY Tiotropium [place] (Spiriva) 18 Mcg Cap, 18 MCG INH DAILY Torsemide (Torsemide) 20 Mg Tab, 60 MG PO DAILY TAKES AM/1600 Vit C/Vit E AC/Lut/Copper/Zinc (Preservision Lutein Softgel) 1 Cap Cap, 1 CAP PO DAILY Scheduled PRN Albuterol Sulfate (Proair Hfa) 108 Mcg/Act Aer, 2 PUFF INH Q4H PRN for SHORTNESS OF BREATH Carboxymethylcellulose Sodium (Refresh Tears) 0.5 % Good, 1 DROP OU BIDP PRN for DRY EYES Dextrose (Glucose) 4 Gm Tab.chew, 4 GM PO ASDIRECTED PRN for LOW BLOOD SUGAR Oxycodone HCl/Acetaminophen (Oxycodone-Acetaminophen 5-325) 1 Tab Tab, 1 TAB PO TID PRN for PAIN Sennosides/Docusate Sodium (Senna-S Tablet) 1 Each Tablet, 2 TAB PO TID PRN for CONSTIPATION Sodium Chloride (Saline Nasal [place]) 44 Ml [place], 1 SPRAY NARES QID PRN for NASAL DRYNESS Allergies Coded Allergies: Penicillins (Verified Adverse Reaction, Mild, upset stomach, 02/02/19) aspirin (Verified Adverse Reaction, Mild, nose bleeds, 02/02/19) A-FIB/CHADSVASC A-FIB History Current/History of A-Fib/PAF?: Yes Current PO Anticoag Therapy: Yes Treatment Treatment ordered: Apixaban SATNAM PACHECO MD March 23, 2021 14:47
[2021-03-23 15:15] VITALS: BP 146/82
[2021-03-23] MEDS: HumaLOG INSULIN (NovoLOG) PER UNIT SC SCH ×2 (17:28→21:55)
[2021-03-23] MEDS ORDERED: NITROGLYCERIN 0.4 MG SUBL TABLET SL PRN (18:35)
[2021-03-23] MEDS ORDERED: NITROGLYCERIN 0.4 MG SUBL TABLET As Ordered ONE (18:36)
[2021-03-23] MEDS: SYMBICORT 160/4.5MCG INHALER 6GM INH SCH (20:00)
[2021-03-23 21:00] VITALS: BP 120/81
[2021-03-23] MEDS ORDERED: COMBIVENT RESPIMAT 100-20MCG INHALER 4GM INH ONE (21:00)
[2021-03-23] MEDS: methylPREDNISolone 125MG 2ML VIAL IV SCH (21:54)
[2021-03-23] MEDS: LEVEMIR (INSULIN DETEMIR) 1 UNITS/0.01ML SC SCH (21:54)
[2021-03-23] MEDS: APIXABAN 5 MG TAB (ELIQUIS) PO SCH (21:54)
[2021-03-23] MEDS: PRAVASTATIN 20 MG TAB PO SCH (21:55)
[2021-03-24] MEDS: FUROSEMIDE 100MG/10ML VIAL (J1940) IV SCH ×3 (00:18→17:41)
[2021-03-24] MEDS: IPRATROPIUM 0.5MG/ALBUTEROL 2.5MG INH SOL UD 3ML (DUONEB) NEB SCH ×4 (01:44→19:49)
[2021-03-24] MEDS: methylPREDNISolone 125MG 2ML VIAL IV SCH ×3 (03:42→20:45)
[2021-03-24 06:22] VITALS: BP 132/65
[2021-03-24 06:52] LABS: HEMATOCRIT 41.6 % (42.0-52.0); HEMOGLOBIN 13.3 g/dl (13.5-17.5); MEAN CORPUSCULAR VOLUME 93.7 fl (80.0-96.0); PLATELET COUNT, AUTOMATED 250 10^3/uL (150-450); RED BLOOD COUNT 4.44 10^6/uL (4.30-6.10); WHITE BLOOD COUNT 7.7 10^3/uL (4.0-10.0)
[2021-03-24 07:22] LABS: BLOOD UREA NITROGEN 38 MG/DL (7-18); CALCIUM LEVEL 8.8 MG/DL (8.8-10.2); CARBON DIOXIDE LEVEL 34 MEQ/L (21-32); CHLORIDE LEVEL 102 MEQ/L (98-107); CREATININE FOR GFR 1.67 MG/DL (0.70-1.30); GLOMERULAR FILTRATION RATE 42.2 (>35); GLUCOSE, FASTING 228 MG/DL (70-100); MAGNESIUM LEVEL 2.3 MG/DL (1.8-2.4); SODIUM LEVEL 141 MEQ/L (136-145); TROPONIN I < 0.02 NG/ML (< 0.10)
[2021-03-24] MEDS: TIOTROPIUM INHALER/CAPSULE (SPIRIVA) INH SCH (07:31)
[2021-03-24] MEDS: SYMBICORT 160/4.5MCG INHALER 6GM INH SCH ×2 (07:32→19:49)
[2021-03-24] MEDS: HumaLOG INSULIN (NovoLOG) PER UNIT SC SCH ×4 (07:47→20:47)
[2021-03-24] MEDS ORDERED: TORSEMIDE 20 MG TAB PO ONE (09:00)
[2021-03-24] MEDS: PERCOCET 5MG/325MG TAB PO PRN ×2 (09:50→20:46)
[2021-03-24] MEDS: LEVEMIR (INSULIN DETEMIR) 1 UNITS/0.01ML SC SCH ×2 (09:51→20:47)
[2021-03-24] MEDS: allopurinoL 300 MG TAB PO SCH (10:02)
[2021-03-24] MEDS: OMEPRAZOLE 20 MG CAP PO SCH (10:02)
[2021-03-24] MEDS: APIXABAN 5 MG TAB (ELIQUIS) PO SCH ×2 (10:02→20:45)
[2021-03-24] MEDS: MULTIVITAMINS/MINERALS THERAP 1 TAB PO SCH (10:02)
[2021-03-24] MEDS: VITAMIN D 1,000 INTERNATIONAL UNITS TABLET PO SCH (10:03)
[2021-03-24] MEDS: DULoxetine 30 MG CAP (CYMBALTA) PO SCH (10:03)
[2021-03-24 10:08] VITALS: BP 123/60
[2021-03-24] MEDS: METOPROLOL SUCC (TopROL XL) 100MG *XL* TAB PO SCH (10:08)
--- NOTE | 2021-03-24 13:20 | ECGEPIP ---
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
[2021-03-24 14:00] VITALS: BP 125/64
--- NOTE | 2021-03-24 16:46 | IPNPDOC ---
Text Note Date of Service The patient was seen on 03/24/21. NOTE SUBJECTIVE: Patient was seen and examined this morning at beside. He notes some improvement of his shortness of breath and leg swelling since yesterday. No new concerns. OBJECTIVE: Vital Signs: See below GENERAL: Alert, comfortable, in no acute distress HEENT: Normocephalic, atraumatic, sclera anicteric, moist mucous membranes NECK: Supple, trachea midline, no lymphadenopathy CARDIOVASCULAR: Irregularly irregular rhythm, normal S1 and S2. No murmurs, rubs, or gallops RESPIRATORY: Diffuse end expiratory wheezing bilaterally. Fine crackles at bilateral bases. ABDOMEN: Obese, soft, nontender, nondistended, bowel sounds present. EXTREMITIES: 2+ pitting edema up to the mid calf bilaterally. NEUROLOGIC: Alert and oriented x3 to person, place and time. No focal deficits appreciated PSYCHIATRIC: Mood and affect appropriate ASSESSMENT/PLAN: 80 year old male with a history of chronic Afib, HFpEF, COPD on baseline 3L who is being admitted for COPD exacerbation and CHF exacerbation. # HFpEF with acute exacerbation - on admission: elevated proBNP, 3+ peripheral edema, bibasalar crackles - continue IV laxis 120mg IV q8. hold home torsemide. - strict I/Os, daily weights - 2g sodium restricted diet, 2L/24h fluid restriction - trend daily BMP and Mag # COPD with acute exacerbation - Precipitant unclear, possible that wheezing is cardiac but will empirically treat, possible viral not covered on panel, environmental or seasonal allergy - CXR without brenda infiltrates or effusions - procalcitonin level 0.12, bacterial pneumonia unlikely. respiratory panel negative - s/p solumedrol 125mg in the ED, continue solumedrol 80 Q8H IV - duonebs Q6H scheduled. albuterol nebs Q4HP for wheezing. - incentive spirometry. - supplementary oxygen, with goal >88% - continue home inhalers # Chronic atrial fibrillation - EKG reviewed, with rate controlled Afib - Troponin x 5 negative - continue toprol XL 100mg - continue anticoagulation with eliquis 5 BID # Chronic hypoxemic respiratory failure - at baseline O2 requirement 3L via NC # HTN - BP well controlled - hold Losartan and Torsemide for now, while giving IV diuresis with lasix # DLP - continue Pravastatin # Diabetes mellitus - Consistent carb diet. ISS ACHS and Levemir per home dosing - hold home novuvlenore # CKD3 - Cr appears to be improved compared to baseline - trend BMP daily # Prostate CA - s/p radiation # Bladder CA - s/p surgery and BCG # Gout - continue Allopurinol # GERD - continue Omeprazole # Lung nodule - Follows w/ Dr. Barnhart as an outpatient DVT prophylaxis: on full anticoagulation with Eliquis DISPOSITION: admitted inpatient to med/surg pending clinical improvement GME ATTESTATION My faculty preceptor for this patient encounter was physically present during the encounter and was fully available. All aspects of the patient interview, examination, medical decision making process, and medical care plan development were reviewed and approved by the faculty preceptor. The faculty preceptor is aware and concurs with the plan as stated in the body of this note and will attest to such by his/her cosignature. ATTENDING NOTE 80-year-old M with a PMHx of A. fib on eliquis, HTN, DLP, IDDM1, COPD on 2L O2, Lung nodule (follows w/ Dr. Barnhart), Prostate CA s/p radiation, Bladder CA s/p surgery, CKD3, Gout, GERD, HFpEF who presented to the emergency room after worsening dyspnea, worsening LE edema despite home torsemide and cough with audible wheezing at home, after he had been declining being taken to the hospital multiple times in the past few weeks when she was suggesting it but an inability to ambulate prompted this ED and is admitted for HFpEF exacerbation and COPD exacerbation. VS,Fishbone, I+O VS, Fishbone, I+O Laboratory Tests 03/24/21 06:40 Vital Signs Date Time Temp Pulse Resp B/P (MAP) Pulse Ox O2 Delivery O2 Flow Rate FiO2 03/24/21 10:20 20 03/24/21 10:08 114 123/60 03/24/21 09:50 Room Air 03/24/21 06:22 96.1 97 3.0 I&O- Last 24 Hours up to 6 AM 03/24/21 06:00 Intake Total 600 ml Output Total 2625 ml Balance -2024 ml NASH GARCIA D.O. March 24, 2021 16:12 SATNAM PACHECO MD March 24, 2021 18:14
--- NOTE | 2021-03-24 19:25 | ECGEPIP ---
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
[2021-03-24] MEDS: PRAVASTATIN 20 MG TAB PO SCH (20:45)
[2021-03-24 22:00] VITALS: BP 125/65
[2021-03-25] MEDS: FUROSEMIDE 100MG/10ML VIAL (J1940) IV SCH ×2 (00:09→08:00)
[2021-03-25] MEDS: IPRATROPIUM 0.5MG/ALBUTEROL 2.5MG INH SOL UD 3ML (DUONEB) NEB SCH ×3 (02:39→13:46)
[2021-03-25] MEDS: methylPREDNISolone 125MG 2ML VIAL IV SCH (04:16)
[2021-03-25 06:00] VITALS: BP 133/76
[2021-03-25 06:43] LABS: HEMATOCRIT 44.9 % (42.0-52.0); HEMOGLOBIN 14.4 g/dl (13.5-17.5); MEAN CORPUSCULAR HEMOGLOBIN 29.8 pg (27.0-33.0); MEAN CORPUSCULAR HGB CONC 32.1 g/dl (32.0-36.5); MEAN CORPUSCULAR VOLUME 92.8 fl (80.0-96.0); PLATELET COUNT, AUTOMATED 291 10^3/uL (150-450); RED BLOOD COUNT 4.84 10^6/uL (4.30-6.10); WHITE BLOOD COUNT 12.5 10^3/uL (4.0-10.0)
[2021-03-25 07:13] LABS: CALCIUM LEVEL 8.9 MG/DL (8.8-10.2); CREATININE FOR GFR 1.7 MG/DL (0.70-1.30); GLOMERULAR FILTRATION RATE 41.4 (>35); MAGNESIUM LEVEL 2.1 MG/DL (1.8-2.4); POTASSIUM SERUM 3.2 MEQ/L (3.5-5.1)
[2021-03-25] MEDS: SYMBICORT 160/4.5MCG INHALER 6GM INH SCH (07:36)
[2021-03-25] MEDS: TIOTROPIUM INHALER/CAPSULE (SPIRIVA) INH SCH (07:37)
[2021-03-25] MEDS: POTASSIUM CHLORIDE 10 MEQ SR TABLET PO SCH ×2 (08:38→12:08)
[2021-03-25] MEDS: DULoxetine 30 MG CAP (CYMBALTA) PO SCH (08:38)
[2021-03-25] MEDS: allopurinoL 300 MG TAB PO SCH (08:38)
[2021-03-25] MEDS: MULTIVITAMINS/MINERALS THERAP 1 TAB PO SCH (08:38)
[2021-03-25] MEDS: APIXABAN 5 MG TAB (ELIQUIS) PO SCH (08:38)
[2021-03-25] MEDS: OMEPRAZOLE 20 MG CAP PO SCH (08:38)
[2021-03-25] MEDS: VITAMIN D 1,000 INTERNATIONAL UNITS TABLET PO SCH (08:38)
[2021-03-25] MEDS: LEVEMIR (INSULIN DETEMIR) 1 UNITS/0.01ML SC SCH (08:39)
[2021-03-25] MEDS: HumaLOG INSULIN (NovoLOG) PER UNIT SC SCH ×2 (08:40→12:07)
[2021-03-25] MEDS: METOPROLOL SUCC (TopROL XL) 100MG *XL* TAB PO SCH (09:00)
[2021-03-25] MEDS ORDERED: PRED20TA PO (10:41)
--- NOTE | 2021-03-25 12:22 | DS.PDOC ---
Discharge Summary General Date of Admission March 23, 2021 at 13:31 Date of Discharge 03/25/2021 Attending Physician: TATI MARIA MD Discharge Summary PROCEDURES PERFORMED DURING STAY: None. ADMITTING DIAGNOSES: CHF with exacerbation COPD with exacerbation Atrial fibrillation HTN HLD DM Lung nodule Prostate CA Bladder CA CKD stage 3 Gout GERD DISCHARGE DIAGNOSES: CHF COPD on chronic O2 Atrial fibrillation HTN HLD DM Lung nodule Prostate CA Bladder CA CKD stage 3 Gout GERD COMPLICATIONS/CHIEF COMPLAINT: Acute Exacerbation Of Chf Copd. HISTORY OF PRESENT ILLNESS: 80-year-old male who presented to the emergency room after worsening dyspnea, worsening LE edema despite home torsemide and cough with audible wheezing at home. His reports that he declined being taken to the hospital multiple times in the past few weeks when she was suggesting it but an inability to ambul ate prompted this ED presentation. At baseline, he lives at home with his and adult son who provide most of his care. He ambulates a few steps within the house with a walker often with standby assistance. He has some home services but the reports that it is mostly her and her son who provide his care. His recent symptoms that have been progressive include SOB at rest, worse with exertion, lower extremity swelling, decreased ability to ambulate and increase oxygen requirements at home from his baseline 3L. He has also had an unchanged chronic cough. He otherwise has not had any noted fever, chills, abdominal pain, asymmetrical weakness, speech slurring, loss of consciousness, nausea, emesis, diarrhea, chest pain, palpitations, lightheadedness, dizziness, hemoptysis, hematemesis, hematuria, hematochezia or report of brenda melena. In the ED, he was normotensive, requiring his baseline 3L, HR 105, and exam was notable for brenda expiratory wheezing and posterior crackles with 3+ LE edema to knees. He was given lasix 160mg IV once, albuterol/ipratropium mdi and solumedrol 125mg IV. Studies were notable for unremarkable CXR without brenda infiltrates with chronic interstitial markings, WBC 14.4 at his known baseline with a history of chronic leukocytosis, Hgb 13.3, platelets 256, Na 142, K 4.2, Cr 1.63 at his recent baseline, lactic acid 1.5, troponin <0.02, proBNP 946. He was admitted for HFpEF exacerbation and COPD exacerbation. HOSPITAL COURSE: The patient was admitted to the hospital and continued on IV lasix and IV steroids. He was noted to have net negative fluid balance of 2L per day during his hospital stay. His lower extremity edema improved. The patient also noted improvement of his shortness of breath and wheezing. He was switched to oral torsemide and oral steroids. He maintained oxygen saturations on his baseline 3 lpm via nasal cannula. He was evaluated by PT and found to be at his baseline function. He was discharged home with services. He will complete a 5 day course of oral prednisone at home. DISCHARGE MEDICATIONS: Please see below. ALLERGIES: Please see below. PHYSICAL EXAMINATION ON DISCHARGE: VITAL SIGNS: Please see below. GENERAL: Alert, comfortable, in no acute distress HEENT: Normocephalic, atraumatic, sclera anicteric, moist mucous membranes NECK: Supple, trachea midline, no lymphadenopathy CARDIOVASCULAR: Irregularly irregular rhythm, normal S1 and S2. No murmurs, rubs, or gallops RESPIRATORY: Clear to auscultation bilaterally, no wheezing or rales. ABDOMEN: Obese, soft, nontender, nondistended, bowel sounds present. EXTREMITIES: 1+ pitting edema up to the ankles bilaterally. NEUROLOGIC: Alert and oriented x3 to person, place and time. No focal deficits appreciated PSYCHIATRIC: Mood and affect appropriate LABORATORY DATA: Please see below. IMAGING: - CXR No acute pulmonary disease.Stable chronic changes as discussed above. PROGNOSIS: Fair ACTIVITY: As tolerated. DIET: 2 g Na restriction, 1800mL fluid restriction DISCHARGE PLAN/DISPOSITION: Home with services DISCHARGE INSTRUCTIONS: 1. Please follow up with your PCP in 7-10 days. 2. Please take prednisone for 5 days. 3. If your symptoms return please call your PCP or return to the ED for further evaluation ITEMS TO FOLLOWUP ON ON OUTPATIENT: None DISCHARGE CONDITION: Stable. TIME SPENT ON DISCHARGE: 35 minutes. Vital Signs/I&Os Vital Signs Date Time Temp Pulse Resp B/P (MAP) Pulse Ox O2 Delivery O2 Flow Rate FiO2 03/25/21 06:00 97.4 97 18 133/76 (95) 98 Nasal Cannula 3.0 I&O- Last 24 Hours up to 6 AM 03/25/21 06:00 Intake Total 1576 ml Output Total 4850 ml Balance -3274 ml Laboratory Data Labs 24H Laboratory Tests 2 03/24/21 12:08: Troponin I < 0.02 03/24/21 16:45: Bedside Glucose (Misc Panel) 244H 03/24/21 19:35: Bedside Glucose (Misc Panel) 278H 03/25/21 06:28: Nucleated Red Blood Cells % (auto) 0.0, Anion Gap 7L, Glomerular Filtration Rate 41.4, Calcium Level 8.9, Magnesium Level 2.1 03/25/21 11:23: Bedside Glucose (Misc Panel) 344H CBC/BMP Laboratory Tests 03/25/21 06:28 FSBS Laboratory Tests Test 03/24/21 16:45 03/24/21 19:35 03/25/21 11:23 Range/Units Bedside Glucose (Misc Panel) 244 278 344 83-110 MG/DL Microbiology Microbiology 03/23/21 Blood Culture - Preliminary, Resulted No growth after 24 hours . All specim... 03/23/21 Respiratory Virus Panel (PCR) (YAKOV) - Final, Complete 03/23/21 Blood Culture - Preliminary, Resulted No Growth after 48 hours. All Specime... Discharge Medications Scheduled Allopurinol (Allopurinol) 100 Mg Tab, 300 MG PO DAILY, (Reported) Apixaban (Eliquis) 5 Mg Tablet, 5 MG PO BID, (Reported) Budesonide/Formoterol (Symbicort 160-4.5 Mcg Inhaler) 60 Puff/Inhaler Aers, 2 PUFF INH BID, (Reported) Cholecalciferol (Vitamin D3) (Vitamin D3) 1,000 Unit Tablet, 2,000 UNITS PO DAILY, (Reported) Duloxetine Hcl (Cymbalta) 30 Mg Capsule.dr, 30 MG PO DAILY, (Reported) Insulin Aspart (Novolog Flexpen) 100 Unit/Ml Inj, 1 DOSE SC AC, (Reported) per sliding scale Insulin Glargine (Lantus) 100 Unit/Ml Inj, 22 UNIT SC BID, (Reported) Losartan Potassium (Losartan Potassium) 25 Mg Tab, 25 MG PO DAILY, (Reported) Metoprolol Succinate (Metoprolol Succinate) 100 Mg Tab.er.24h, 100 MG PO DAILY, (Reported) Omeprazole (Omeprazole) 20 Mg Cap, 20 MG PO DAILY, (Reported) Pravastatin Sodium (Pravastatin Sodium) 40 Mg Tab, 40 MG PO QHS, (Reported) Prednisone (Prednisone) 20 Mg Tablet, 40 MG PO DAILY Take 2 tablets daily for 5 days Sitagliptin (Januvia) 50 Mg Tablet, 50 MG PO DAILY, (Reported) Tiotropium [place] (Spiriva) 18 Mcg Cap, 1 PUFF INH DAILY, (Reported) Torsemide (Torsemide) 20 Mg Tab, 60 MG PO DAILY, (Reported) TAKES AM/1600 Vit C/Vit E AC/Lut/Copper/Zinc (Preservision [place]utein Softgel) 1 Cap Cap, 1 CAP PO DAILY, (Reported) Scheduled PRN Albuterol Sulfate (Proair Hfa) 108 Mcg/Act Aer, 2 PUFF INH Q4H PRN for SHORTNESS OF BREATH, (Reported) Carboxymethylcellulose Sodium (Refresh Tears) 0.5 % Good, 1 DROP OU BIDP PRN for DRY EYES, (Reported) Dextrose (Glucose) 4 Gm Tab.chew, 4 GM PO ASDIRECTED PRN for LOW BLOOD SUGAR, (Reported) Oxycodone HCl/Acetaminophen (Oxycodone-Acetaminophen 5-325) 1 Tab Tab, 1 TAB PO TID PRN for PAIN, (Reported) Sennosides/Docusate Sodium (Senna-S Tablet) 1 Each Tablet, 2 TAB PO TID PRN for CONSTIPATION, (Reported) Sodium Chloride (Saline Nasal [place]) 44 Ml [place], 1 SPRAY NARES QID PRN for TRACY AL DRYNESS, (Reported) Allergies Coded Allergies: Penicillins (Verified Adverse Reaction, Mild, upset stomach, 02/02/19) aspirin (Verified Adverse Reaction, Mild, nose bleeds, 02/02/19) GME ATTESTATION GME ATTESTATION My faculty preceptor for this patient encounter was physically present during the encounter and was fully available. All aspects of the patient interview, examination, medical decision making process, and medical care plan development were reviewed and approved by the faculty preceptor. The faculty preceptor is aware and concurs with the plan as stated in the body of this note and will a ttest to such by his/her cosignature. ATTENDING NOTE I, Tati Maria, have independently examined this patient and performed my own physical exam, as well as reviewed the documentation and edited where necessary. I have discussed in detail with the resident / student the findings and plan of treatment as documented by the resident / student and edited their note. I agree with their findings and treatment plan and have edited their documentation. I will continue to follow the patient during this hospital stay. Time spent on discharge 35 minutes NASH GARCIA D.O. March 25, 2021 12:22 TATI MARIA MD March 25, 2021 15:00
[2021-03-25 14:00] VITALS: BP 143/84
[2021-03-26] MEDS ORDERED: TORSEMIDE 20 MG TAB PO SCH (09:00)
[2021-03-26] MEDS ORDERED: predniSONE 20 MG TAB PO SCH (09:00)
== END 2021-03-25 15:25 | disposition home health service (06) | DRG 291 ==
LOC: M ED 10:57 → M ED INP 13:31 → ENRESERV 13:54 → M MSPAV 15:03
PROVIDERS: ADMIT Internal Medicine; ATTEND Internal Medicine
DX: I13.0 Hypertensive heart and chronic kidney disease with heart failure and stage 1 through stage 4 chronic kidney disease, or unspecified chronic kidney disease (principal); I50.33 Acute on chronic diastolic (congestive) heart failure; J44.1 Chronic obstructive pulmonary disease with (acute) exacerbation; J96.11 Chronic respiratory failure with hypoxia; I48.20 Chronic atrial fibrillation, unspecified; E78.5 Hyperlipidemia, unspecified; E10.9 Type 1 diabetes mellitus without complications; Z99.81 Dependence on supplemental oxygen; R91.1 Solitary pulmonary nodule; Z85.46 Personal history of malignant neoplasm of prostate; Z92.3 Personal history of irradiation; Z85.51 Personal history of malignant neoplasm of bladder; N18.30 Chronic kidney disease, stage 3 unspecified; M10.9 Gout, unspecified; K21.9 Gastro-esophageal reflux disease without esophagitis; R60.0 Localized edema; Z88.0 Allergy status to penicillin; Z88.6 Allergy status to analgesic agent; Z89.022 Acquired absence of left finger(s); Z87.891 Personal history of nicotine dependence; Z79.4 Long term (current) use of insulin; Z79.899 Other long term (current) drug therapy; Z79.01 Long term (current) use of anticoagulants; Z20.822 Contact with and (suspected) exposure to COVID-19

== ENCOUNTER 2021-03-31 13:21 | Inpatient (IN) | payer OTHER ==
[~2021-03-31] VITALS: Ht 182.9 cm; Wt 132.6 kg
[~2021-03-31 13:21] MED LIST changes: +CYMB1CAP5 PO; +METO1TAB33 PO; +PRED20TA PO; +SITA50TAB PO
[2021-03-31 14:04] LABS: BASO # 0.1 10^3/uL (0.0-0.2); BASO % 0.2 % (0.0-1.0); EOS # 0.1 10^3/uL (0.0-0.5); EOS % 0.4 % (0.0-3.0); HEMATOCRIT 45.7 % (42.0-52.0); HEMOGLOBIN 14.7 g/dl (13.5-17.5); LYMPH # 1.4 10^3/uL (1.5-5.0); LYMPH % 3.7 % (24.0-44.0); MEAN CORPUSCULAR HEMOGLOBIN 30.2 pg (27.0-33.0); MEAN CORPUSCULAR HGB CONC 32.2 g/dl (32.0-36.5); MONO % 10.6 % (2.0-8.0); NEUTROPHILS # 31.6 10^3/uL (1.5-8.5); NEUTROPHILS % 83.3 % (36.0-66.0); PLATELET COUNT, AUTOMATED 285 10^3/uL (150-450); RED BLOOD COUNT 4.86 10^6/uL (4.30-6.10)
--- NOTE | 2021-03-31 14:08 | REP ---
INDICATION: DYSPNEA/COUGH COMPARISON: 03/23/2021 TECHNIQUE: Portable AP view of the chest FINDINGS: Stable cardiomegaly is again suggested. Lung zambrano demonstrate chronic interstitial changes. Subtle superimposed lower lobe reticulonodular infiltrates cannot be excluded. No effusion. No pneumothorax. IMPRESSION: Stable chronic changes. Cannot exclude subtle superimposed lower lobe reticulonodular infiltrates. <Electronically signed by Victor Manuel Kumar > 03/31/21 [id number]
[2021-03-31 14:14] LABS: INR 1.3; PROTHROMBIN TIME 16.5 SECONDS (12.5-14.3)
[2021-03-31 14:22] LABS: WHITE BLOOD COUNT 37.9 10^3/uL (4.0-10.0)
[2021-03-31 15:07] LABS: CK-MB VALUE MASS 1.6 NG/ML (<3.6); CPK CREATINE PHOSPHOKINASE 29 U/L (39-308); MB/CK RELATIVE INDEX 5.52 (< OR =4); TROPONIN I < 0.02 NG/ML (< 0.10)
[2021-03-31 15:36] LABS: BLOOD UREA NITROGEN 46 MG/DL (7-18); CALCIUM LEVEL 8.3 MG/DL (8.8-10.2); CARBON DIOXIDE LEVEL 32 MEQ/L (21-32); CHLORIDE LEVEL 100 MEQ/L (98-107); CREATININE FOR GFR 1.73 MG/DL (0.70-1.30); GLOMERULAR FILTRATION RATE 40.6 (>35); GLUCOSE, FASTING 212 MG/DL (70-100); NT-PRO BNP 1701 PG/ML (<450); SODIUM LEVEL 139 MEQ/L (136-145); THYROID STIMULATING HORMONE 0.802 uIU/ML (0.358-3.740)
[2021-03-31] MEDS ORDERED: IPRATROPIUM 0.5MG/ALBUTEROL 2.5MG INH SOL UD 3ML (DUONEB) NEB ONE (17:25)
--- NOTE | 2021-03-31 18:12 | REPVR ---
PROCEDURE INFORMATION: Exam: CT Chest Without Contrast; Diagnostic Exam date and time: 03/31/2021 5:20 PM Age: 80 years old Clinical indication: Shortness of breath; Additional info: SOB leukocytosis TECHNIQUE: Imaging protocol: Diagnostic computed tomography of the chest without contrast. 3D rendering (Not supervised by radiologist): MIP and/or 3D reconstructed images were created by the technologist. Radiation optimization: All CT scans at this facility use at least one of these dose optimization techniques: automated exposure control; mA and/or kV adjustment per patient size (includes targeted exams where dose is matched to clinical indication); or iterative reconstruction. COMPARISON: CT Chest without contrast 03/01/2019 10:14 AM FINDINGS: Thyroid: Normal thyroid. Lungs: There are patchy and nodular areas of density at the right mid lung field which may be the result of patchy pneumonic infiltrate. Underlying malignant nodules not excluded with this appearance. There is patchy increased density posterior right lung base. Along the posterior aspect of the left lower lobe are large areas of consolidated infiltrated lung with the largest area measuring 7 cm. This probably represents a large area of alveolar pneumonic infiltrate. Underlying neoplasm not excluded with this appearance. Follow-up studies should be obtained to see if this clears. Pleural spaces: There is calcification along the pleura which may be the result of previous asbestos exposure. Heart: The heart is top-normal in size. Pulmonary arteries: Would be impossible to evaluate for pulmonary embolus as there was no IV contrast. Aorta: The aorta is normal in size. Lymph nodes: There are small mediastinal lymph nodes. Adrenal glands: 1.9 cm x 1.3 cm nodule right adrenal gland most consistent with an adenoma in seen on previous exams. Bones/joints: Unremarkable. No acute fracture. Soft tissues: Unremarkable. IMPRESSION: Patchy areas of density right upper lung and right lung base. Large areas of consolidated lung noted posterior aspect of the left lower lobe, the largest measuring 7 cm. This is probably a large areas of alveolar pneumonic infiltrate. To exclude any possibility of underlying neoplasm recommend sequential follow-up CTs to see if this clears. Electronically signed by: Rashid Thomas On 03/31/2021 18:12:19 PM
[2021-03-31] MEDS ORDERED: AZITHROMYCIN INJ 500 MG, VIAL MATE ADAPTER 1 EACH in NS 250 ML IV ONE (18:25)
[2021-03-31] MEDS ORDERED: cefTRIAXone SOD 2 GM in D5W MINI-BAG PLUS 50 ML IV ONE (18:25)
[2021-03-31] MEDS ORDERED: METOPROLOL TART 25 MG TABLET PO ONE (18:40)
[2021-03-31] MEDS: METOPROLOL 5 MG/5 ML VIAL IV SCH ×3 (18:48→19:01)
[2021-03-31] MEDS ORDERED: methylPREDNISolone 125MG 2ML VIAL IV STA (20:00)
[2021-03-31] MEDS ORDERED: ACETAMINOPHEN TAB 650MG DOSE (2X325MG) PO PRN (20:00)
[2021-03-31] MEDS ORDERED: MOM 30ML SUSPENSION UDC PO PRN (20:00)
[2021-03-31] MEDS ORDERED: ALBUTEROL SULFATE 2.5 MG/0.5 ML INH NEB SOLN NEB PRN (20:00)
[2021-03-31] MEDS ORDERED: MAALOX 30 ML SUSP *UDC PO PRN (20:00)
--- NOTE | 2021-03-31 20:21 | ECGEPIP ---
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
[2021-03-31] MEDS ORDERED: VANCOMYCIN HCL 1,000 MG, VIAL MATE ADAPTER 1 EACH in NS 250 ML IV SCH (20:30)
[2021-03-31] MEDS ORDERED: AMIODARONE HCL 150 MG in IV 1 EA IV SCH (21:20)
[2021-03-31] MEDS ORDERED: GLUCAGON INJ 1MG VIAL SC PRN (21:20)
[2021-03-31] MEDS ORDERED: GLUCOSE 4GM CHEW TABLET PO PRN (21:20)
[2021-03-31] MEDS ORDERED: DEXTROSE 50% 50 ML SYRINGE IV PRN (21:20)
[2021-03-31] MEDS ORDERED: LEVALBUTEROL 1.25 MG/0.5 ML CONCENTRATE NEB INH PRN (21:40)
[2021-03-31 21:55] LABS: HEMOGLOBIN A1c 7.1 %
[2021-03-31] MEDS ORDERED: AMIODARONE HCL 360 MG in IV 1 EA IV SCH (23:00)
[2021-03-31] MEDS ORDERED: VANCOMYCIN HCL 1,000 MG, VIAL MATE ADAPTER 1 EACH in NS 250 ML IV ONE (23:00)
[2021-03-31] MEDS ORDERED: PERCOCET 5MG/325MG TAB PO PRN (23:05)
[2021-03-31] MEDS ORDERED: SENOKOT S TAB PO PRN (23:05)
[2021-03-31 23:57] LABS: ABG BASE EXCESS 6.4 (-2.0-2.0); ABG HCO3 30.3 MEQ/L (22.0-26.0); ABG O2 SATURATION 96.7 % (95.0-99.0); ABG PARTIAL PRESSURE CO2 40.7 mmHg (35.0-45.0); ABG PARTIAL PRESSURE O2 84.2 mmHg (75.0-100.0); ABG STANDARD HCO3 30.3 MEQ/L (22.0-26.0); ABG TOTAL CO2 31.6 MEQ/L (23.0-31.0)
[2021-04-01] VITALS (8 sets, daily range): BP systolic 107–135; BP diastolic 65–77
[2021-04-01] MEDS ORDERED: VANCOMYCIN HCL 750 MG, VIAL MATE ADAPTER 1 EACH in NS 250 ML IV ONE ×3
[2021-04-01] MEDS: APIXABAN 5 MG TAB (ELIQUIS) PO SCH ×3 (00:36→21:25)
[2021-04-01] MEDS: PRAVASTATIN 20 MG TAB PO SCH ×2 (00:37→21:25)
[2021-04-01] MEDS: LEVEMIR (INSULIN DETEMIR) 1 UNITS/0.01ML SC SCH ×3 (00:43→21:26)
--- NOTE | 2021-04-01 02:10 | HPEPDOC ---
[facility] Medical History & Physical Date of Admission March 31, 2021 Date of Service: March 31, 2021 Other Provider Shantel Orozco Attending Physician: LORENZO COFFMAN MD History and Physical TIME OF SERVICE: 915pm CHIEF COMPLAINT: dyspnea HISTORY OF PRESENT ILLNESS: This 80 yr old M was last admitted from March 23 to for acute CHF and acute COPD. Over the last few days he developed dyspnea associated w dry cough, 4/10 chest pain, and feeling hot. He thinks that the dyspnea may be due to COPD and possibly CHF but denied having BLE edema, myalgias, fevers or chills. Per d/w his ER-RN Valerie the patient has remained in RVR despite receiving Metoprolol tartrate 25 mg PO and metoprolol tartrate 5mg IV x 3. REVIEW OF SYSTEMS: 12-point review of systems negative except as listed in HPI PAST MEDICAL/ SURGICAL HISTORY: A. 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 HOME MEDICATIONS: Please see below. PHYSICAL EXAMINATION: Vital Signs Date Time Temp Pulse Resp B/P (MAP) Pulse Ox O2 Delivery O2 Flow Rate FiO2 03/31/21 13:29 98.8 124 28 97/54 99 Nasal Cannula 3.0 GENERAL APPEARANCE: well-nourished / appears chronically ill HEENT: no scleral icterus /MM pink but dry CARDIOVASCULAR: tachycardic HR irregularly irregular / trace BLE edema LUNGS: CTAB on RA ABDOMEN: contour obese /soft & NT MUSCULOSKELETAL: NCAT INTEGUMENT: slightly pale / has spider angiomata on cheeks NEUROLOGICAL: CN 2-12 grossly intact /speech not dysarthric PSYCHIATRIC: A&O /able to understand and follow all commands LABORATORY DATA: Immature Granulocyte % (Auto) 1.8, Neutrophils (%) (Auto) 83.3H, Lymphocytes (%) (Auto) 3.7L, Monocytes (%) (Auto) 10.6H, Eosinophils (%) (Auto) 0.4, Basophils (%) (Auto) 0.2, Neutrophils # (Auto) 31.6H, Lymphocytes # (Auto) 1.4L, Monocytes # (Auto) 4.0H, Eosinophils # (Auto) 0.1, Basophils # (Auto) 0.1, Nucleated Red Blood Cells % (auto) 0.0, Prothrombin Time 16.5H, Prothromb Time International Ratio 1.30, Anion Gap 7L, Glomerular Filtration Rate 40.6, Estimated Mean Plasma Glucose 157H, Hemoglobin A1c 7.1, Lactic Acid Level 1.5, Calcium Level 8.3L, Total Creatine Kinase 29L, Creatine Kinase MB 1.6, Creatine Kinase MB Relative Index 5.52H, Troponin I < 0.02, PK-Wec-A-Type Natriuretic Peptide 1701H, Thyroid Stimulating Hormone (TSH) 0.802 03/31/21 23:30: Blood Gas Bicarbonate Standard 30.3H, Arterial Blood pH 7.490H, Arterial Blood Partial Pressure CO2 40.7, Arterial Blood Partial Pressure O2 84.2, Arterial Blood Total CO2 31.6H, Arterial Blood HCO3 30.3H, Arterial Blood Base Excess 6.4H, Arterial Blood Oxygen Saturation 96.7 04/01/21 00:11: Bedside Glucose (Misc Panel) 241H IMAGING: Chest xray IMPRESSION: Stable chronic changes. Cannot exclude subtle superimposed lower lobe reticulonodular infiltrates. CT chest IMPRESSION: Patchy areas of density right upper lung and right lung base. Large areas of consolidated lung noted posterior aspect of the left lower lobe, the largest measuring 7 cm. This is probably a large areas of alveolar pneumonic infiltrate. To exclude any possibility of underlying neoplasm recommend sequential follow-up CTs to see if this clears. MICROBIOLOGY: respiratory panel neg ASSESSMENT: is an 80 yr old w A. 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 PLAN: 1 Atrial Fibrillation w RVR Precipitating causes of acute a fib is likely PNA Plan: admit to ICU bc he will need IV infusions to control his HR / telemetry / f/u serial Trops , TSH & Mg / IV amiodarone, based on the results of the RACE trail will aim for a HR <110 / he is on metoprolol succinate rather than tartrate (which is better for rate control) 2 Chest pain Likely multifactorial Plan; telemetry / trend trops / treat rapid afib and PNA / Apixaban 3 Sepsis 2/2 HAP Source likely PNA SIRS criteria: HR >90 / WBC >12 ?? 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 / RR > 20 Lactic acid <2 NEW2S Score = 12 points = high risk = supports decision to admit to ICU Plan: telemetry / abx/ IVF /f/u villela cx / Acetaminophen PRN for fever / target MAP at of least 65 to 70 / f/u Is and Os with target UOP of at least 0.5 ml/kg/H / f/u FSBS w target serum glucose 140-180 while acutely ill 4 HAP Since he was recently admitted most likely organisms include strep pneumo, mycoplasma, c pneumo, h influ, legionella Bilateral lesions further increase the probability that this is mycoplasma PNA PORT/PSI Score to predict risk of mortality in patient w CAP = 151 points Risk Class V = in patient admission is recommended Plan: continuous pulse ox & supplemental O2/ f/u sputum culture, /u blood cx, sputum cx, strep pneumo, MRSA, legionella & mycoplasma / ABX [general medical floor in pt = Levofloxacin or Ceftriaxone + azithromycin or doxy / Levofloxacin + Ceftriaxone + Vanc / per 2019 IDSA/ATS guidelines for CAP will not check procalcitonin to distinguish between viral and bacterial pathogens prior to starting abx / per Radiologists recs he will need a repeat CT in the near future to ensure he doesnt have lung CA 5 Acute COPD/ Chronic O2 dependent respiratory failure (baseline 2L) Plan: supplemental O2 / continuous pulse oximetry / aspiration precautions / f/u sputum cx / DuoNeb Q6H, Levalbuterol Q1HP, Solmedrol, Prednisone + PPI / tessalon pearls / when his ready for d/c the day time team should refer him to his Starch Treating Assistant for repeat PFTs & referral for Pulmonary Rehab which has been shown to reduce exacerbation & mortality if patient attends within 4 weeks of episode of acute COPD / offer influenza vaccine annually/ the day time team may also consider starting him on Roflumilast prior to discharge to prevent another exacerbation (after r/o a history of depression) 6 Acute HFpEF Trigger is likely congestion due to rapid Afib & IVF (he had hypotension on arrival) Plan: f/u Is and Os / daily weights / d/c IVF / resume torsemide in the morning / manage RVR 7 Hypotension -resolving At his baseline he has HTN Plan: resume losartan, torsemide and metoprolol 6 IDDM Plan: f/u accuchecks / hypoglycemia protocol / sliding scale insulin / hold oral anti-glycemic / f/u A1C (target 7.1 to 8.5% bc he is frail, very elderly w decreased life expectancy) / reduce long acting insulin from 22 units BID to 10 units BID for now / his PCP may consider out pt Endo referral to switch the patient from basal bolus injection to continuous subcutaneous insulin infusion which has been shown to produced small improvements in A1C, improve QOL and reduce episodes of severe hypoglycemia/ when he is ready for dc he should be started on Canagliflozin which is indicated to reduce the risk of progression to ESKD, doubling of serum Cr, CV and hospitalization for heart failure 7 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 Plan: f/u w Hem as scheduled 8 CKD3 Plan: f/u BMP 9 Gout Plan: Allopurinol 10 Class 2 Obesity Complicates care DVT px n/a on DOAC Dispo: home after at least 2 midnights stay Home Medications Scheduled Allopurinol (Allopurinol) 100 Mg Tab, 300 MG PO DAILY Apixaban (Eliquis) 5 Mg Tablet, 5 MG PO BID Budesonide/Formoterol (Symbicort 160-4.5 Mcg Inhaler) 60 Puff/Inhaler Aers, 2 PUFF INH BID Cholecalciferol (Vitamin D3) (Vitamin D3) 1,000 Unit Tablet, 2,000 UNITS PO DAILY Duloxetine Hcl (Cymbalta) 30 Mg Capsule.dr, 30 MG PO DAILY Insulin Aspart (Novolog Flexpen) 100 Unit/Ml Inj, 1 DOSE SC AC per sliding scale Insulin Glargine (Lantus) 100 Unit/Ml Inj, 22 UNIT SC BID Losartan Potassium (Losartan Potassium) 25 Mg Tab, 25 MG PO DAILY Metoprolol Succinate (Metoprolol Succinate) 100 Mg Tab.er.24h, 100 MG PO DAILY Omeprazole (Omeprazole) 20 Mg Cap, 20 MG PO DAILY Pravastatin Sodium (Pravastatin Sodium) 40 Mg Tab, 40 MG PO QHS Sitagliptin (Januvia) 50 Mg Tablet, 50 MG PO DAILY Tiotropium [place] (Spiriva) 18 Mcg Cap, 1 PUFF INH DAILY Torsemide (Torsemide) 20 Mg Tab, 60 MG PO DAILY Vit C/Vit E AC/Lut/Copper/Zinc (Preservision Lutein Softgel) 1 Cap Cap, 1 CAP PO DAILY Scheduled PRN Albuterol Sulfate (Proair Hfa) 108 Mcg/Act Aer, 2 PUFF INH Q4H PRN for SHORTNESS OF BREATH Carboxymethylcellulose Sodium (Refresh Tears) 0.5 % Good, 1 DROP OU BIDP PRN for DRY EYES Dextrose (Glucose) 4 Gm Tab.chew, 4 GM PO ASDIRECTED PRN for LOW BLOOD SUGAR Oxycodone HCl/Acetaminophen (Oxycodone-Acetaminophen 5-325) 1 Tab Tab, 1 TAB PO TID PRN for PAIN Sennosides/Docusate Sodium (Senna-S Tablet) 1 Each Tablet, 2 TAB PO TID PRN for CONSTIPATION Sodium Chloride (Saline Nasal [place]) 44 Ml [place], 1 SPRAY NARES QID PRN for NASAL DRYNESS Allergies Coded Allergies: Penicillins (Verified Adverse Reaction, Mild, upset stomach, 02/02/19) aspirin (Verified Adverse Reaction, Mild, nose bleeds, 02/02/19) A-FIB/CHADSVASC A-FIB History Current/History of A-Fib/PAF?: Yes Current PO Anticoag Therapy: Yes LORENZO COFFMAN MD April 01, 2021 02:10
[2021-04-01] MEDS: IPRATROPIUM 0.5MG/ALBUTEROL 2.5MG INH SOL UD 3ML (DUONEB) NEB SCH ×4 (02:31→19:39)
[2021-04-01 05:02] LABS: HEMATOCRIT 43.3 % (42.0-52.0); MEAN CORPUSCULAR HEMOGLOBIN 30.3 pg (27.0-33.0); MEAN CORPUSCULAR HGB CONC 32.3 g/dl (32.0-36.5); MEAN CORPUSCULAR VOLUME 93.7 fl (80.0-96.0); PLATELET COUNT, AUTOMATED 256 10^3/uL (150-450); RED BLOOD COUNT 4.62 10^6/uL (4.30-6.10); WHITE BLOOD COUNT 22.3 10^3/uL (4.0-10.0)
[2021-04-01] MEDS: BENZONATATE 100 MG CAP PO SCH ×3 (05:22→21:25)
[2021-04-01] MEDS: AMIODARONE HCL 360 MG in IV 1 EA IV SCH ×2 (05:22→15:09)
[2021-04-01] MEDS: LevoFLOXacin IV 750 MG in IV 1 EA IV SCH (05:23)
[2021-04-01] MEDS: HumaLOG INSULIN (NovoLOG) PER UNIT SC SCH ×5 (05:23→21:26)
[2021-04-01 05:32] LABS: BLOOD UREA NITROGEN 41 MG/DL (7-18); CALCIUM LEVEL 8.4 MG/DL (8.8-10.2); CARBON DIOXIDE LEVEL 32 MEQ/L (21-32); CHLORIDE LEVEL 98 MEQ/L (98-107); CREATININE FOR GFR 1.74 MG/DL (0.70-1.30); GLOMERULAR FILTRATION RATE 40.3 (>35); GLUCOSE, FASTING 283 MG/DL (70-100); MAGNESIUM LEVEL 2.2 MG/DL (1.8-2.4); POTASSIUM SERUM 4.5 MEQ/L (3.5-5.1); SODIUM LEVEL 138 MEQ/L (136-145); TROPONIN I < 0.02 NG/ML (< 0.10)
[2021-04-01] MEDS: TIOTROPIUM INHALER/CAPSULE (SPIRIVA) INH SCH (07:48)
[2021-04-01] MEDS: allopurinoL 300 MG TAB PO SCH (08:19)
[2021-04-01] MEDS: DULoxetine 30 MG CAP (CYMBALTA) PO SCH (08:19)
[2021-04-01] MEDS: predniSONE 20 MG TAB PO SCH (08:19)
[2021-04-01] MEDS ORDERED: LEVALBUTEROL 1.25 MG/0.5 ML CONCENTRATE NEB INH PRN (08:20)
[2021-04-01] MEDS: PANTOPRAZOLE 40MG TAB (PROTONIX) PO SCH (08:20)
[2021-04-01] MEDS: METOPROLOL SUCC (TopROL XL) 100MG *XL* TAB PO SCH (08:20)
[2021-04-01] MEDS ORDERED: TORSEMIDE 20 MG TAB PO SCH (09:00)
[2021-04-01] MEDS ORDERED: LOSARTAN 25 MG TAB PO SCH (09:00)
--- NOTE | 2021-04-01 13:06 | IPNPDOC ---
Text Note Date of Service The patient was seen on 04/01/21. NOTE SUbjective: -On 2L NC GENERAL APPEARANCE: Ill appearing, NAD HEENT: NCAT, EOMI, anicteric, MMM CARDIOVASCULAR: tachycardic HR irregularly irregular / trace BLE edema LUNGS: Diminished breath sounds, on 2L this AM ABDOMEN: Obese, normoactive bowel sounds, soft, NTND NEUROLOGICAL: CN 2-12 grossly intact, speech not dysarthric, nonfocal examination PSYCHIATRIC: A&O x 3 EXT: trace bilateral LE edema, otherwise WWP LABORATORY DATA: Reviewed WBC 22.3 Hgb 14 Platelets 256 na 138 K 4.5 Cr 1.74 Mag 2.2 IMAGING: Chest xray IMPRESSION: Stable chronic changes. Cannot exclude subtle superimposed lower lobe reticulonodular infiltrates. CT chest IMPRESSION: Patchy areas of density right upper lung and right lung base. Large areas of consolidated lung noted posterior aspect of the left lower lobe, the largest measuring 7 cm. This is probably a large areas of alveolar pne umonic infiltrate. To exclude any possibility of underlying neoplasm recommend sequential follow-up CTs to see if this clears. MICROBIOLOGY: respiratory panel neg ASSESSMENT: 80 yr old w A. 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 PLAN: 1 Atrial Fibrillation with RVR: Precipitating causes of RVR likely PNA -telemetry -TSH & Mg were wnl -continue home metoprolol succinate 100mg QD -on amio gtt, will monitor closely -goal rate <110 -continue eliquis 2 Chest pain : Likely multifactorial with ongoing PNA and rapid Afib -telemetry -negative serial trops -treat rapid afib as per above -treat PNA per below -continue eliquis -EKG was non-ischemic Sepsis 2/2 HAP -SIRS criteria: HR >90 / WBC to >30 (much higher than his known baseline despite chronic leukocytosis) / RR > 20 -telemetry -Will de-escalate from vanc/levaquin/ceftriaxone and dc ceftriaxone -MRSA PCR to de-escalate abx -s/p IVF -f/u villela cx of BCx, SCx, urine legionella and strep antigens -acetaminophen PRN for fever -f/u Is and Os with target UOP of at least 0.5 ml/kg/H HAP: Since he was recently admitted most likely organisms include strep pneumo, mycoplasma, c pneumo, h influ, legionella -Bilateral lesions further increase the probability that this is mycoplasma PNA -supplemental O2, goal >89% -f/u sputum culture -f/u blood cx -f/u urine antigens for strep pneumo, legionella & mycoplasma -MRSA PCR -incentive spirometry -Abx, will continue on vanc, levaquin -He will need a repeat CT in the near future to monitor resolution of opacities with some concern for potential malignancy 5 Acute COPD with Chronic O2 dependent respiratory failure (baseline 2L) -supplemental O2, goal >89% -aspiration precautions -DuoNeb Q6H, Levalbuterol Q4HP -Prednisone 40mg PO daily + PPI -tessalon perls -incentive spirometry 6 Mild HFpEF exacerbation Trigger is likely congestion due to rapid Afib & IVF (he had hypotension on arrival) -f/u Is and Os -daily weights -Will plan to resume torsemide tomorrow -manage RVR as above 7 Hypertension -Was hypotensive at presentation with sepsis and Afib with RVR -Hold losartan -continue torsemide and metoprolol 8 IDDM -FSBG AC/HS / hypoglycemia protocol / sliding scale insulin ACHS / hold oral anti-glycemic / 22 levemir units BID -consistent carb diet 9 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 -f/u w Hem as scheduled 10 CKD3 -Daily BMP 11 Gout -Allopurinol -also now on steroids 12 Class 2 Obesity Complicates care DVT px : on eliquis Dispo: home after at least 2 midnights stay VS,Fishbone, I+O VS, Fishbone, I+O Laboratory Tests 03/31/21 13:50 04/01/21 04:42 Vital Signs Date Time Temp Pulse Resp B/P (MAP) Pulse Ox O2 Delivery O2 Flow Rate FiO2 04/01/21 04:00 97.3 120 24 107/69 (82) 99 Nasal Cannula 4.0 I&O- Last 24 Hours up to 6 AM 04/01/21 06:00 Intake Total 1560 ml Output Total 325 ml Balance 1235 ml SATNAM PACHECO MD April 01, 2021 08:45
[2021-04-01] MEDS ORDERED: VANCOMYCIN HCL 750 MG, VIAL MATE ADAPTER 1 EACH in NS 250 ML IV SCH ×2 (17:00→18:00)
[2021-04-01] MEDS ORDERED: cefTRIAXone SOD 2 GM in D5W MINI-BAG PLUS 50 ML IV SCH (20:00)
[2021-04-02] MEDS: IPRATROPIUM 0.5MG/ALBUTEROL 2.5MG INH SOL UD 3ML (DUONEB) NEB SCH ×4 (01:41→20:06)
[2021-04-02 03:27] VITALS: BP 141/78
[2021-04-02] MEDS: BENZONATATE 100 MG CAP PO SCH ×3 (05:30→21:13)
[2021-04-02 05:59] LABS: BASO % 0.2 % (0.0-1.0); HEMATOCRIT 41.2 % (42.0-52.0); HEMOGLOBIN 13.4 g/dl (13.5-17.5); LYMPH # 0.8 10^3/uL (1.5-5.0); LYMPH % 3.8 % (24.0-44.0); MEAN CORPUSCULAR HGB CONC 32.5 g/dl (32.0-36.5); MEAN CORPUSCULAR VOLUME 92.4 fl (80.0-96.0); MONO # 1.8 10^3/uL (0.0-0.8); MONO % 8.6 % (2.0-8.0); NEUTROPHILS # 17.7 10^3/uL (1.5-8.5); NEUTROPHILS % 86.1 % (36.0-66.0); PLATELET COUNT, AUTOMATED 275 10^3/uL (150-450); RED BLOOD COUNT 4.46 10^6/uL (4.30-6.10)
[2021-04-02 06:21] LABS: INR 1.53; PROTHROMBIN TIME 18.7 SECONDS (12.5-14.3)
[2021-04-02 06:22] LABS: PARTIAL THROMBOPLASTIN TIME 40.1 SECONDS (24.2-38.5)
[2021-04-02 06:32] LABS: ALBUMIN 2.5 GM/DL (3.2-5.2); BILIRUBIN,TOTAL 0.4 MG/DL (0.2-1.0); CALCIUM LEVEL 9.6 MG/DL (8.8-10.2); CREATININE FOR GFR 2.01 MG/DL (0.70-1.30); GLOMERULAR FILTRATION RATE 34.1 (>35); POTASSIUM SERUM 3.9 MEQ/L (3.5-5.1); TOTAL PROTEIN 5.6 GM/DL (6.4-8.2)
[2021-04-02 06:33] LABS: WHITE BLOOD COUNT 20.6 10^3/uL (4.0-10.0)
[2021-04-02] MEDS: TIOTROPIUM INHALER/CAPSULE (SPIRIVA) INH SCH (07:36)
[2021-04-02 08:00] VITALS: BP 134/73
[2021-04-02] MEDS: HumaLOG INSULIN (NovoLOG) PER UNIT SC SCH ×4 (08:55→21:14)
[2021-04-02] MEDS ORDERED: FUROSEMIDE 100MG/10ML VIAL (J1940) IV ONE (09:00)
[2021-04-02 09:22] LABS: MAGNESIUM LEVEL 2.3 MG/DL (1.8-2.4)
[2021-04-02] MEDS: allopurinoL 300 MG TAB PO SCH (09:29)
[2021-04-02] MEDS: LEVEMIR (INSULIN DETEMIR) 1 UNITS/0.01ML SC SCH ×2 (09:29→21:13)
[2021-04-02] MEDS: PANTOPRAZOLE 40MG TAB (PROTONIX) PO SCH (09:29)
[2021-04-02] MEDS: DULoxetine 30 MG CAP (CYMBALTA) PO SCH (09:29)
[2021-04-02] MEDS: APIXABAN 5 MG TAB (ELIQUIS) PO SCH ×2 (09:29→21:13)
[2021-04-02] MEDS: predniSONE 20 MG TAB PO SCH (09:29)
[2021-04-02] MEDS: METOPROLOL SUCC (TopROL XL) 100MG *XL* TAB PO SCH (09:30)
[2021-04-02 12:00] VITALS: BP 110/70
--- NOTE | 2021-04-02 13:25 | IPNPDOC ---
Text Note Date of Service The patient was seen on 04/02/21. NOTE SUbjective: -On 3L NC GENERAL APPEARANCE: Ill appearing, NAD HEENT: NCAT, EOMI, anicteric, MMM CARDIOVASCULAR: tachycardic HR irregularly irregular / trace BLE edema LUNGS: Crackles throughout, on 3L NC ABDOMEN: Obese, normoactive bowel sounds, soft, NTND NEUROLOGICAL: CN 2-12 grossly intact, speech not dysarthric, nonfocal examination PSYCHIATRIC: A&O x 3 EXT: 1+ bilateral LE edema, otherwise WWP LABORATORY DATA: Reviewed WBC 20.6 Hgb 13.4 Platelets 275 na 137 K 3.9 Cr 2.01 IMAGING: Chest xray IMPRESSION: Stable chronic changes. Cannot exclude subtle superimposed lower lobe reticulonodular infiltrates. CT chest IMPRESSION: Patchy areas of density right upper lung and right lung base. Large areas of consolidated lung noted posterior aspect of the left lower lobe, the largest measuring 7 cm. This is probably a large areas of alveolar pneumonic infiltrate. To exclude any possibility of underlying neoplasm recommend sequential follow-up CTs to see if this clears. MICROBIOLOGY: respiratory panel neg ASSESSMENT: 80 yr old w A. fib, HTN, DLP, IDDM1, COPD w chronic O2 dependent respiratory failure (2L), Lung nodule, Prosate CA s/p radiation, Bladder CA s/p TURBT & BCG, CKD3, Gout, Prostate cancer s/p radiation therapy, HFpEF, recurrent AUGUSTUS w poor response to oral iron, double heterozygous hereditary hemochromatosis, chronic leukocytosis possibly 2/2 monoclonal B-cell lymphocytosis & Class 2 Obesity who presented w c /o dyspnea, dry cough and ches t pain who was admitted for sepsis 2/2 HAP, hypoxemic respiratory failure, Afib w RVR, LINH and likely COPD exacerbation. PLAN: Atrial Fibrillation with RVR: Precipitating cause of RVR was likely PNA -telemetry -TSH & Mg were wnl -continue home metoprolol succinate 100mg QD -s/p amio gtt -goal rate <110 -continue eliquis Chest pain : Likely multifactorial with ongoing PNA and rapid Afib: resolved. -telemetry -negative serial trops -treat rapid afib as per above -treat PNA per below -continue eliquis -EKG was non-ischemic Sepsis 2/2 HAP: sepsis resolved -SIRS criteria: HR >90 / WBC to >30 (much higher than his known baseline despite chronic leukocytosis) / RR > 20 -telemetry -continue levaquin, day 3 -f/u villela cx of BCx, SCx, urine legionella and strep antigens -acetaminophen PRN for fever HAP: Since he was recently admitted most likely organisms include strep pneumo, mycoplasma, c pneumo, h flu, legionella -Bilateral lesions further increase the probability that this is mycoplasma PNA -supplemental O2, goal >89% -f/u sputum culture -f/u blood cx -f/u urine antigens for strep pneumo, legionella & mycoplasma -MRSA PCR -incentive spirometry -Abx, will continue on levaquin, day 3 -He will need a repeat CT in the near future to monitor resolution of opacities with some concern for potential malignancy Acute on chronic COPD with O2 dependent respiratory failure (baseline 2L): Initially required 4L for saturation goal of >89% -supplemental O2, goal >89% -aspiration precautions -DuoNeb Q6H, Levalbuterol Q4HP -Prednisone 40mg PO daily + PPI -tessalon perles -incentive spirometry HFpEF exacerbation Trigger is likely congestion due to rapid Afib & IVF (he had hypotension on arrival) -f/u Is and Os -daily weights -Hold torsemide PO and give lasix 80 IV once and will future dosing will be adjusted from there. -manage RVR per above Hypertension -Was hypotensive at presentation with sepsis and Afib with RVR -Holding losartan -continue loop diuretic as noted above and metoprolol IDDM -FSBG AC/HS / hypoglycemia protocol / sliding scale insulin ACHS / hold oral anti-glycemic / 22 levemir units BID -consistent carb diet 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 -f/u w Hem as scheduled LINH on CKD3: likely congestive with ongoing CHF exacerbation -diuresis as noted above -monitor daily BMP -strict I/Os -daily weights Gout -Allopurinol -also now on steroids Class 2 Obesity Complicates care DVT px : on eliquis Dispo: home after at least 2 midnights stay VS,Fishbone, I+O VS, Fishbone, I+O Laboratory Tests 04/02/21 05:48 Vital Signs Date Time Temp Pulse Resp B/P (MAP) Pulse Ox O2 Delivery O2 Flow Rate FiO2 04/02/21 04:00 3.0 04/02/21 03:27 97.4 119 20 141/78 (37) 95 Nasal Cannula I&O- Last 24 Hours up to 6 AM 04/02/21 05:59 Intake Total 1834.6 ml Output Total 1825 ml Balance 9.6 ml SATNAM PACHECO MD April 02, 2021 08:13
[2021-04-02 14:00] VITALS: BP 140/90
[2021-04-02] MEDS: PRAVASTATIN 20 MG TAB PO SCH (21:13)
[2021-04-02 22:00] VITALS: BP 142/91
[2021-04-03] MEDS: IPRATROPIUM 0.5MG/ALBUTEROL 2.5MG INH SOL UD 3ML (DUONEB) NEB SCH ×4 (02:28→19:55)
[2021-04-03] MEDS: BENZONATATE 100 MG CAP PO SCH ×3 (05:34→21:45)
[2021-04-03] MEDS: LevoFLOXacin IV 750 MG in IV 1 EA IV SCH (05:35)
[2021-04-03] MEDS: METOPROLOL TART 25 MG TABLET PO SCH ×3 (05:35→18:04)
[2021-04-03 06:00] VITALS: BP 140/99
[2021-04-03 06:33] LABS: BASO # 0.1 10^3/uL (0.0-0.2); BASO % 0.2 % (0.0-1.0); EOS % 0.1 % (0.0-3.0); HEMATOCRIT 42.3 % (42.0-52.0); LYMPH # 1.5 10^3/uL (1.5-5.0); LYMPH % 5.8 % (24.0-44.0); MEAN CORPUSCULAR HEMOGLOBIN 30.6 pg (27.0-33.0); MEAN CORPUSCULAR HGB CONC 33.1 g/dl (32.0-36.5); MEAN CORPUSCULAR VOLUME 92.4 fl (80.0-96.0); MONO # 2.5 10^3/uL (0.0-0.8); MONO % 9.8 % (2.0-8.0); NEUTROPHILS # 20.6 10^3/uL (1.5-8.5); NEUTROPHILS % 82.3 % (36.0-66.0); PLATELET COUNT, AUTOMATED 313 10^3/uL (150-450); RED BLOOD COUNT 4.58 10^6/uL (4.30-6.10)
[2021-04-03 06:42] LABS: WHITE BLOOD COUNT 25.1 10^3/uL (4.0-10.0)
[2021-04-03 06:55] LABS: ALBUMIN 2.5 GM/DL (3.2-5.2); BILIRUBIN,TOTAL 0.4 MG/DL (0.2-1.0); CALCIUM LEVEL 9.3 MG/DL (8.8-10.2); CREATININE FOR GFR 1.96 MG/DL (0.70-1.30); GLOMERULAR FILTRATION RATE 35.1 (>35); MAGNESIUM LEVEL 2.2 MG/DL (1.8-2.4); POTASSIUM SERUM 3.9 MEQ/L (3.5-5.1); TOTAL PROTEIN 5.6 GM/DL (6.4-8.2)
[2021-04-03] MEDS: TIOTROPIUM INHALER/CAPSULE (SPIRIVA) INH SCH (07:19)
[2021-04-03] MEDS: predniSONE 20 MG TAB PO SCH (08:01)
[2021-04-03] MEDS: HumaLOG INSULIN (NovoLOG) PER UNIT SC SCH ×4 (08:01→21:47)
[2021-04-03] MEDS: APIXABAN 5 MG TAB (ELIQUIS) PO SCH ×2 (08:01→21:46)
[2021-04-03] MEDS: DULoxetine 30 MG CAP (CYMBALTA) PO SCH (08:01)
[2021-04-03] MEDS: LEVEMIR (INSULIN DETEMIR) 1 UNITS/0.01ML SC SCH ×2 (08:02→21:46)
[2021-04-03] MEDS: PANTOPRAZOLE 40MG TAB (PROTONIX) PO SCH (08:02)
[2021-04-03] MEDS: allopurinoL 300 MG TAB PO SCH (08:02)
[2021-04-03] MEDS ORDERED: FUROSEMIDE 100MG/10ML VIAL (J1940) IV ONE (08:50)
--- NOTE | 2021-04-03 11:50 | IPNPDOC ---
Text Note Date of Service The patient was seen on 04/03/21. NOTE SUbjective: -Doing much better, now on 1L NC GENERAL APPEARANCE: Obese, NAD HEENT: NCAT, EOMI, anicteric, MMM CARDIOVASCULAR: tachycardic HR irregularly irregular / trace BLE edema LUNGS: Crackles now mostly at bases, on 3L NC ABDOMEN: Obese, normoactive bowel sounds, soft, NTND NEUROLOGICAL: CN 2-12 grossly intact, speech not dysarthric, nonfocal examination PSYCHIATRIC: A&O x 3 EXT: 1+ bilateral LE edema, chronic hyperpigmentation and dependent edema, otherwise [facility] LABORATORY DATA: Reviewed WBC 25.1 Hgb 14 Platelets 313 na 140 K 3.9 Cr 1.96 IMAGING: Chest xray IMPRESSION: Stable chronic changes. Cannot exclude subtle superimposed lower lobe reticulonodular infiltrates. CT chest IMPRESSION: Patchy areas of density right upper lung and right lung base. Large areas of consolidated lung noted posterior aspect of the left lower lobe, the largest measuring 7 cm. This is probably a large areas of alveolar pneumonic infiltrate. To exclude any possibility of underlying neoplasm recommend sequential follow-up CTs to see if this clears. MICROBIOLOGY: respiratory panel neg ASSESSMENT: 80 yr old w A. 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 PLAN: Atrial Fibrillation with RVR: Precipitating cause of RVR was likely PNA -telemetry -TSH & Mg were wnl -Switched home metoprolol succinate 100mg QD to 25Q6 tartrate -Added on dilt 30Q8H per Dr. Dobbs recommendation after discussion about persistent RVR despite amio load -s/p amio gtt -goal rate <110 -continue eliquis Chest pain : Likely multifactorial with ongoing PNA and rapid Afib: resolved. -telemetry -negative serial trops -treat rapid afib as per above -treat PNA per below -continue eliquis -EKG was non-ischemic Sepsis 2/2 HAP: sepsis resolved -SIRS criteria: HR >90 / WBC to >30 (much higher than his known baseline despite chronic leukocytosis) / RR > 20 -telemetry -continue levaquin, day 4 -f/u [place] cx of BCx, SCx, urine legionella and strep antigens -acetaminophen PRN for fever HAP: Since he was recently admitted most likely organisms include strep pneumo, mycoplasma, c pneumo, h flu, legionella -Bilateral lesions further increase the probability that this is mycoplasma PNA -supplemental O2, goal >89% -f/u sputum culture -f/u blood cx -f/u urine antigens for strep pneumo, legionella & mycoplasma -MRSA PCR -incentive spirometry -Abx, will continue on levaquin, day 4 -He will need a repeat CT in the near future to monitor resolution of opacities with some concern for potential malignancy Acute on chronic COPD with O2 dependent respiratory failure (baseline 2L): Initially required 4L for saturation goal of >89% -supplemental O2, goal >89% -aspiration precautions -DuoNeb Q6H, Levalbuterol Q4HP -Prednisone 40mg PO daily + PPI, day 4 of 5 -tessalon perles -incentive spirometry HFpEF exacerbation Trigger is likely congestion due to rapid Afib & IVF (he had hypotension on arrival) -f/u Is and Os -daily weights -will give lasix 80 IV again today. Hold home torsemide -manage RVR per above Hypertension -Was hypotensive at presentation with sepsis and Afib with RVR -Holding losartan -continue loop diuretic as noted above and metoprolol IDDM -FSBG AC/HS / hypoglycemia protocol / sliding scale insulin ACHS / hold oral anti-glycemic / 22 levemir units BID -consistent carb diet 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 -f/u w Hem as scheduled LINH on CKD3: likely congestive with ongoing CHF exacerbation -diuresis as noted above -monitor daily BMP -strict I/Os -daily weights Gout -Allopurinol -also now on steroids Class 2 Obesity Complicates care DVT px : on eliquis Dispo: home after at least 2 midnights stay VS,Fishbone, I+O VS, Fishbone, I+O Laboratory Tests 04/03/21 05:50 Vital Signs Date Time Temp Pulse Resp B/P (MAP) Pulse Ox O2 Delivery O2 Flow Rate FiO2 04/03/21 08:10 21 98 Nasal Cannula 1.0 04/03/21 06:00 98.6 104 140/99 (113) I&O- Last 24 Hours up to 6 AM 04/03/21 06:00 Intake Total 1710 ml Output Total 1450 ml Balance 260 ml SATNAM PACHECO MD April 03, 2021 08:55
[2021-04-03 14:00] VITALS: BP 144/94
[2021-04-03 14:17] LABS: CHLAMYDIA PNEUMONIAE IgM <1:10 (Neg:<1:10); MYCOPLASMA PNEUMONIAE IgG 635 U/mL (0-99); MYCOPLASMA PNEUMONIAE IgM <770 U/mL (0-769)
[2021-04-03] MEDS: PRAVASTATIN 20 MG TAB PO SCH (21:45)
[2021-04-03 22:00] VITALS: BP 138/92
[2021-04-04] MEDS: METOPROLOL TART 25 MG TABLET PO SCH ×2 (00:14→05:53)
[2021-04-04] MEDS: IPRATROPIUM 0.5MG/ALBUTEROL 2.5MG INH SOL UD 3ML (DUONEB) NEB SCH ×2 (01:53→07:16)
[2021-04-04 05:53] VITALS: BP 125/70
[2021-04-04] MEDS: BENZONATATE 100 MG CAP PO SCH (05:53)
[2021-04-04 06:00] VITALS: BP 125/70
[2021-04-04] MEDS: TIOTROPIUM INHALER/CAPSULE (SPIRIVA) INH SCH (07:16)
[2021-04-04] MEDS ORDERED: BENZ-18 PO (07:31)
[2021-04-04] MEDS ORDERED: DILT30TA PO (07:31)
[2021-04-04] MEDS ORDERED: LEVO750T13 PO (07:31)
[2021-04-04 07:52] LABS: BASO # 0.1 10^3/uL (0.0-0.2); BASO % 0.3 % (0.0-1.0); EOS # 0.1 10^3/uL (0.0-0.5); EOS % 0.3 % (0.0-3.0); HEMATOCRIT 45.1 % (42.0-52.0); HEMOGLOBIN 14.6 g/dl (13.5-17.5); LYMPH # 1.9 10^3/uL (1.5-5.0); LYMPH % 8.6 % (24.0-44.0); MEAN CORPUSCULAR HEMOGLOBIN 29.9 pg (27.0-33.0); MEAN CORPUSCULAR HGB CONC 32.4 g/dl (32.0-36.5); MEAN CORPUSCULAR VOLUME 92.2 fl (80.0-96.0); MONO # 2.7 10^3/uL (0.0-0.8); MONO % 12.1 % (2.0-8.0); NEUTROPHILS # 16.8 10^3/uL (1.5-8.5); NEUTROPHILS % 76.9 % (36.0-66.0); PLATELET COUNT, AUTOMATED 315 10^3/uL (150-450); RED BLOOD COUNT 4.89 10^6/uL (4.30-6.10)
--- NOTE | 2021-04-04 07:53 | DS.PDOC ---
Discharge Summary General Date of Admission March 31, 2021 at 20:00 Date of Discharge 04/04/2021 Attending Physician: SATNAM PACHECO MD Discharge Summary PROCEDURES PERFORMED DURING STAY: None ADMITTING DIAGNOSES: Sepsis DISCHARGE DIAGNOSES: Sepsis 2/2 CAP Afib w/ RVR HFpEF exacerbation COPD exacerbation i/s/o multifocal PNA Chronic hypoxemic respiratory failure HLD DM History of Lung nodule Prostate CA Bladder CA CKD stage 3 Gout GERD COMPLICATIONS/CHIEF COMPLAINT: Sepsis. HISTORY OF PRESENT ILLNESS: 80 yr old M was last admitted from March 23 to for acute CHF and acute COPD, who had been doing well at home but then slowly developed dyspnea associated w dry cough, 4/10 chest pain, and feeling hot. He thought that the dyspnea may be due to COPD and possibly CHF but denied having BLE edema, myalgias, fevers or chills. HOSPITAL COURSE: In the ED, he was normotensive and remained on his home 3Lbut was noted to be in Afib w/ RVR that did not respond to PO metop tartrate in the ED. Workup was notable for acute on chronic leukocytosis and multifocal GGOs on dry CT chest c/w pneumonia but with some concern for other process including potential malignancy that can only be excluded after PNA treatment and would therefore warrant f/u CT after PNA resolution. He was admitted to the ICU for sepsis with PNA with AFib with RVR. He was placed on an amiodarone gtt without much improvement in his moderate RVR with rates to 130s and was eventually placed on metop tartrate q6h to match his home torprol dose and had dilt 30Q6H added on as well with good effect. In the meantime the PNA was initially treated with vanc/levaquin/ceftriaxone? and eventually de-escalated to renally dosed levaquin after MRSA PCR was negative. He was also treated with 4 days of steroids for a COPD exacerbation with resolution of wheezing, and IV diuretics while his home PO torsemide was held with improvement in his chronic LE edema and dyspnea. He is now on 1L NC, better than his baseline of 3L NC and will be discharged home at this time where he will complete a levaquin course for the PNA and will resume his home torsemide. OF NOTE TO PCP: I resumed his toprol at 100mg QD but did add on 14 day course of dilt 30 Q6H which will need review of rates and appropriateness of continuation beyond the dacia-infection period because he is technically on dual georges blockage which needs close attention as it may later precipitate bradycardias but is proving useful at this moment for rate control. DISCHARGE MEDICATIONS: Please see below. ALLERGIES: Please see below. PHYSICAL EXAMINATION ON DISCHARGE: VITAL SIGNS: Please see below. GENERAL APPEARANCE: Obese, NAD HEENT: NCAT, EOMI, anicteric, MMM CARDIOVASCULAR: Irregularly irregular LUNGS: Trace crackles at the bases, on 1L NC ABDOMEN: Obese, normoactive bowel sounds, soft, NTND NEUROLOGICAL: CN 2-12 grossly intact, speech not dysarthric, nonfocal examination PSYCHIATRIC: A&O x 3 EXT: 1+ bilateral LE edema, chronic hyperpigmentation and dependent edema, otherwise [facility] LABORATORY DATA: Please see below. IMAGIN/24 CT chest without contrast: Thyroid: Normal thyroid. Lungs: There are patchy and nodular areas of density at the right mid lung field which may be the result of patchy pneumonic infiltrate. Underlying malignant nodules not excluded with this appearance. There is patchy increased density posterior right lung base. Along the posterior aspect of the left lower lobe are large areas of consolidated infiltrated lung with the largest area measuring 7 cm. This probably represents a large area of alveolar pneumonic infiltrate. Underlying neoplasm not excluded with this appearance. Follow-up studies should be obtained to see if this clears. Pleural spaces: There is calcification along the pleura which may be the result of previous asbestos exposure. Heart: The heart is top-normal in size. Pulmonary arteries: Would be impossible to evaluate for pulmonary embolus as there was no IV contrast. Aorta: The aorta is normal in size. Lymph nodes: There are small mediastinal lymph nodes. Adrenal glands: 1.9 cm x 1.3 cm nodule right adrenal gland most consistent with an adenoma in seen on previous exams. Bones/joints: Unremarkable. No acute fracture. Soft tissues: Unremarkable. IMPRESSION: Patchy areas of density right upper lung and right lung base. Large areas of consolidated lung noted posterior aspect of the left lower lobe, the largest measuring 7 cm. This is probably a large areas of alveolar pneumonic infiltrate. To exclude any possibility of underlying neoplasm recommend sequential follow-up CTs to see if this clears. 03/31 CXR: Stable cardiomegaly is again suggested. Lung zambrano demonstrate chronic interstitial changes. Subtle superimposed lower lobe reticulonodular infiltrates cannot be excluded. No effusion. No pneumothorax. IMPRESSION: Stable chronic changes. Cannot exclude subtle superimposed lower lobe reticulonodular infiltrates. PROGNOSIS: Good ACTIVITY: As tolerated DIET: Consistent carb, 2g sodium DISCHARGE PLAN: Home with services. To complete course of levaquin. PCP within 7d. DISPOSITION: Home with services. DISCHARGE INSTRUCTIONS: Home with services. To complete course of levaquin. PCP within 7d. ITEMS TO FOLLOWUP ON ON OUTPATIENT: Resolution of CAP Afib with RVR - rate control and medical optimization DISCHARGE CONDITION: Stable TIME SPENT ON DISCHARGE: 56 minutes. Vital Signs/I&Os Vital Signs Date Time Temp Pulse Resp B/P (MAP) Pulse Ox O2 Delivery O2 Flow Rate FiO2 04/04/21 05:53 85 125/70 04/03/21 22:00 98.0 18 97 Nasal Cannula 04/03/21 21:50 1.0 I&O- Last 24 Hours up to 6 AM 04/04/21 06:00 Intake Total 1220 ml Output Total 1850 ml Balance -630 ml Laboratory Data Labs 24H Laboratory Tests 2 04/03/21 11:29: Bedside Glucose (Misc Panel) 122H 04/03/21 16:38: Bedside Glucose (Misc Panel) 241H 04/03/21 20:17: Bedside Glucose (Misc Panel) 333H FSBS Laboratory Tests Test 04/03/21 11:29 04/03/21 16:38 04/03/21 20:17 Range/Units Bedside Glucose (Misc Panel) 122 241 333 83-110 MG/DL Microbiology Microbiology 03/31/21 Respiratory Virus Panel (PCR) (YAKOV) - Final, Complete 03/31/21 Blood Culture - Preliminary, Resulted No Growth after 72 hours. All specime... 03/31/21 Blood Culture - Preliminary, Resulted No Growth after 72 hours. All specime... Discharge Medications Scheduled Allopurinol (Allopurinol) 100 Mg Tab, 300 MG PO DAILY, (Reported) Apixaban (Eliquis) 5 Mg Tablet, 5 MG PO BID, (Reported) Benzonatate (Benzonatate) 100 Mg Capsule, 200 MG PO Q8H Budesonide/Formoterol (Symbicort 160-4.5 Mcg Inhaler) 60 Puff/Inhaler Aers, 2 PUFF INH BID, (Reported) Cholecalciferol (Vitamin D3) (Vitamin D3) 1,000 Unit Tablet, 2,000 UNITS PO DAILY, (Reported) Diltiazem HCl (Diltiazem HCl) 30 Mg Tablet, 30 MG PO Q8H Duloxetine Hcl (Cymbalta) 30 Mg Capsule.dr, 30 MG PO DAILY, (Reported) Insulin Aspart (Novolog Flexpen) 100 Unit/Ml Inj, 1 DOSE SC AC, (Reported) per sliding scale Insulin Glargine (Lantus) 100 Unit/Ml Inj, 22 UNIT SC BID, (Reported) Levofloxacin (Levofloxacin) 750 Mg Tablet, 750 MG PO Q48H Losartan Potassium (Losartan Potassium) 25 Mg Tab, 25 MG PO DAILY, (Reported) Metoprolol Succinate (Metoprolol Succinate) 100 Mg Tab.er.24h, 100 MG PO DAILY, (Reported) Omeprazole (Omeprazole) 20 Mg Cap, 20 MG PO DAILY, (Reported) Pravastatin Sodium (Pravastatin Sodium) 40 Mg Tab, 40 MG PO QHS, (Reported) Sitagliptin (Januvia) 50 Mg Tablet, 50 MG PO DAILY, (Reported) Tiotropium [place] (Spiriva) 18 Mcg Cap, 1 PUFF INH DAILY, (Reported) Torsemide (Torsemide) 20 Mg Tab, 60 MG PO DAILY, (Reported) Vit C/Vit E AC/Lut/Copper/Zinc (Preservision Lutein Softgel) 1 Cap Cap, 1 CAP PO DAILY, (Reported) Scheduled PRN Albuterol Sulfate (Proair Hfa) 108 Mcg/Act Aer, 2 PUFF INH Q4H PRN for SHORTNESS OF BREATH, (Reported) Carboxymethylcellulose Sodium (Refresh Tears) 0.5 % Good, 1 DROP OU BIDP PRN for DRY EYES, (Reported) Dextrose (Glucose) 4 Gm Tab.chew, 4 GM PO ASDIRECTED PRN for LOW BLOOD SUGAR, (Reported) Oxycodone HCl/Acetaminophen (Oxycodone-Acetaminophen 5-325) 1 Tab Tab, 1 TAB PO TID PRN for PAIN, (Reported) Sennosides/Docusate Sodium (Senna-S Tablet) 1 Each Tablet, 2 TAB PO TID PRN for CONSTIPATION, (Reported) Sodium Chloride (Saline Nasal Orma) 44 Ml Orma, 1 SPRAY NARES QID PRN for NASAL DRYNESS, (Reported) Allergies Coded Allergies: Penicillins (Verified Adverse Reaction, Mild, upset stomach, 02/02/19) aspirin (Verified Adverse Reaction, Mild, nose bleeds, 02/02/19) SATNAM PACHECO MD April 04, 2021 07:53
[2021-04-04 07:56] LABS: WHITE BLOOD COUNT 21.9 10^3/uL (4.0-10.0)
[2021-04-04 08:16] LABS: ALBUMIN 2.6 GM/DL (3.2-5.2); BILIRUBIN,TOTAL 0.5 MG/DL (0.2-1.0); CALCIUM LEVEL 8.9 MG/DL (8.8-10.2); CREATININE FOR GFR 1.83 MG/DL (0.70-1.30); MAGNESIUM LEVEL 2.6 MG/DL (1.8-2.4); POTASSIUM SERUM 3.7 MEQ/L (3.5-5.1); TOTAL PROTEIN 5.8 GM/DL (6.4-8.2)
[2021-04-04] MEDS: LEVEMIR (INSULIN DETEMIR) 1 UNITS/0.01ML SC SCH (09:04)
[2021-04-04] MEDS: APIXABAN 5 MG TAB (ELIQUIS) PO SCH (09:05)
[2021-04-04] MEDS: PANTOPRAZOLE 40MG TAB (PROTONIX) PO SCH (09:05)
[2021-04-04] MEDS: DULoxetine 30 MG CAP (CYMBALTA) PO SCH (09:05)
[2021-04-04] MEDS: allopurinoL 300 MG TAB PO SCH (09:05)
[2021-04-04] MEDS: HumaLOG INSULIN (NovoLOG) PER UNIT SC SCH (09:05)
[2021-04-04] MEDS: predniSONE 20 MG TAB PO SCH (09:05)
[2021-04-05] MEDS ORDERED: LevoFLOXacin 750 MG TABLET PO SCH (06:00)
== END 2021-04-04 10:25 | disposition home or self-care (01) | DRG 871 ==
LOC: M ED 13:21 → M ED INP 20:00 → M ICU 04-01 01:18 → M MSPAV 04-02 14:45
PROVIDERS: ADMIT Internal Medicine; ATTEND Internal Medicine
DX: A41.9 Sepsis, unspecified organism (principal); J15.7 Pneumonia due to Mycoplasma pneumoniae; I50.33 Acute on chronic diastolic (congestive) heart failure; J96.11 Chronic respiratory failure with hypoxia; I13.0 Hypertensive heart and chronic kidney disease with heart failure and stage 1 through stage 4 chronic kidney disease, or unspecified chronic kidney disease; J44.0 Chronic obstructive pulmonary disease with (acute) lower respiratory infection; J44.1 Chronic obstructive pulmonary disease with (acute) exacerbation; I48.91 Unspecified atrial fibrillation; E78.5 Hyperlipidemia, unspecified; E11.22 Type 2 diabetes mellitus with diabetic chronic kidney disease; R91.1 Solitary pulmonary nodule; Z85.46 Personal history of malignant neoplasm of prostate; Z92.3 Personal history of irradiation; Z85.51 Personal history of malignant neoplasm of bladder; N18.30 Chronic kidney disease, stage 3 unspecified; M10.9 Gout, unspecified; Z99.81 Dependence on supplemental oxygen; K21.9 Gastro-esophageal reflux disease without esophagitis; D50.9 Iron deficiency anemia, unspecified; E66.9 Obesity, unspecified; Z79.01 Long term (current) use of anticoagulants; Z79.4 Long term (current) use of insulin; Z79.899 Other long term (current) drug therapy; Z88.0 Allergy status to penicillin; Z88.6 Allergy status to analgesic agent; Y95 Nosocomial condition; Z68.39 Body mass index [BMI] 39.0-39.9, adult

== ENCOUNTER 2021-12-17 00:26 | Inpatient (IN) | payer OTHER ==
[~2021-12-17] VITALS: Ht 188 cm; Wt 134.2 kg
[2021-12-17] VITALS (14 sets, daily range): BP systolic 114–140; BP diastolic 61–72; O2SAT 94–100
[~2021-12-17 00:26] MED LIST changes: +BENZ-18 PO; +DILT30TA PO; +FLUO-96 PO; -FLUO20CA20 PO; +HM S0.65; -HM S0.65 NARES; +LEVO750T13 PO; +LOSA25TA13 PO; -LOSA25TA14 PO; +OMEP40CA4 PO; -OMEP40CA97 PO; +VERA120T67 PO; -VERA12TASA PO; -VERA180T3 PO; +VERA180T42 PO
[2021-12-17] MEDS ORDERED: IPRATROPIUM 0.5MG/ALBUTEROL 2.5MG INH SOL UD 3ML (DUONEB) As Ordered ONE (00:44)
[2021-12-17 00:45] LABS: ABG pH (ARTERIAL) 7.362 UNITS (7.350-7.450)
[2021-12-17] MEDS ORDERED: IPRATROPIUM 0.5MG/ALBUTEROL 2.5MG INH SOL UD 3ML (DUONEB) NEB ONE ×2 (00:45→01:00)
[2021-12-17 00:46] LABS: ABG BASE EXCESS 8.6 (-2.0-2.0); ABG HCO3 35.8 MEQ/L (22.0-26.0); ABG O2 SATURATION 98.4 % (95.0-99.0); ABG PARTIAL PRESSURE CO2 64.6 mmHg (35.0-45.0); ABG PARTIAL PRESSURE O2 118.1 mmHg (75.0-100.0); ABG STANDARD HCO3 32.4 MEQ/L (22.0-26.0); ABG TOTAL CO2 37.8 MEQ/L (23.0-31.0)
[2021-12-17 01:07] LABS: BASO # 0.1 10^3/uL (0.0-0.2); BASO % 0.3 % (0.0-1.0); EOS # 0.7 10^3/uL (0.0-0.5); HEMOGLOBIN 10.2 g/dl (13.5-17.5); LYMPH # 2.2 10^3/uL (1.5-5.0); MEAN CORPUSCULAR HEMOGLOBIN 28.5 pg (27.0-33.0); MONO % 9.9 % (2.0-8.0); NEUTROPHILS # 13.3 10^3/uL (1.5-8.5); NEUTROPHILS % 73.4 % (36.0-66.0); PLATELET COUNT, AUTOMATED 334 10^3/uL (150-450); RED BLOOD COUNT 3.58 10^6/uL (4.30-6.10); WHITE BLOOD COUNT 18.2 10^3/uL (4.0-10.0)
[2021-12-17 01:19] LABS: MONO # 1.8 10^3/uL (0.0-0.8)
[2021-12-17 01:37] LABS: CK-MB VALUE MASS 2.7 NG/ML (<3.6); MB/CK RELATIVE INDEX 4.74 (< OR =4)
[2021-12-17 01:42] LABS: ALBUMIN 3.1 GM/DL (3.2-5.2); BILIRUBIN,DIRECT 0.1 MG/DL (0.0-0.2); BILIRUBIN,TOTAL 0.2 MG/DL (0.2-1.0); CALCIUM LEVEL 8.9 MG/DL (8.8-10.2); CREATININE FOR GFR 2.21 MG/DL (0.70-1.30); GLOMERULAR FILTRATION RATE 30.5 (>35); POTASSIUM SERUM 4.2 MEQ/L (3.5-5.1); THYROID STIMULATING HORMONE 3.58 uIU/ML (0.358-3.740); TOTAL PROTEIN 6.7 GM/DL (6.4-8.2)
[2021-12-17 03:05] LABS: CK-MB VALUE MASS 2.5 NG/ML (<3.6); MB/CK RELATIVE INDEX 5.32 (< OR =4)
[2021-12-17] MEDS ORDERED: ACETAMINOPHEN TAB 650MG DOSE (2X325MG) PO PRN (03:45)
[2021-12-17] MEDS ORDERED: D-40TAB2 PO (04:57)
[2021-12-17] MEDS ORDERED: GUAI400T9 PO (04:57)
[2021-12-17] MEDS ORDERED: ADV250INH INH (04:57)
[2021-12-17] MEDS ORDERED: LEVA0.6322 INH (04:57)
[2021-12-17] MEDS ORDERED: MUSC1CRE EXT (04:57)
[2021-12-17] MEDS ORDERED: AZIT-12 PO (04:57)
[2021-12-17] MEDS ORDERED: ALLO300T2 PO (04:57)
[2021-12-17] MEDS ORDERED: ROSU40TA4 PO (04:57)
[2021-12-17] MEDS ORDERED: DILT120C77 PO (04:57)
[2021-12-17] MEDS ORDERED: DULO60CA35 PO (04:57)
[2021-12-17] MEDS ORDERED: ELIQ2.5T PO (04:57)
[2021-12-17] MEDS ORDERED: PATIENT COMMENT (04:59)
[2021-12-17] MEDS ORDERED: HOME MED LIST COMPLETE! XX SCH (05:00)
[2021-12-17 05:03] LABS: ABG BASE EXCESS 5.1 (-2.0-2.0); ABG HCO3 30.9 MEQ/L (22.0-26.0); ABG O2 SATURATION 97.2 % (95.0-99.0); ABG PARTIAL PRESSURE CO2 51.5 mmHg (35.0-45.0); ABG PARTIAL PRESSURE O2 91.9 mmHg (75.0-100.0); ABG STANDARD HCO3 29.1 MEQ/L (22.0-26.0); ABG TOTAL CO2 32.5 MEQ/L (23.0-31.0); ABG pH (ARTERIAL) 7.396 UNITS (7.350-7.450)
[2021-12-17] MEDS ORDERED: ANALGESIC BALM CRM 3OZ TOP PRN (05:15)
[2021-12-17] MEDS ORDERED: ALBUTEROL 90 MCG/ACT 8GM HFA INHALER INH PRN (05:15)
[2021-12-17] MEDS ORDERED: guaiFENesin 200 MG TAB PO PRN (05:15)
[2021-12-17] MEDS ORDERED: SENOKOT S TAB PO PRN (05:15)
[2021-12-17] MEDS ORDERED: SODIUM CHLORIDE NASAL 0.65% SPRAY BTL (OCEAN) PRN (05:15)
[2021-12-17] MEDS ORDERED: IPRATROPIUM 0.5MG/ALBUTEROL 2.5MG INH SOL UD 3ML (DUONEB) NEB SCH (08:00)
[2021-12-17] MEDS: TIOTROPIUM INHALER/CAPSULE (SPIRIVA) INH SCH (08:58)
[2021-12-17] MEDS: ADVAIR HFA 115/21MCG INHALER INH SCH ×2 (08:58→19:39)
[2021-12-17] MEDS ORDERED: TORSEMIDE 20 MG TAB PO SCH (09:00)
[2021-12-17] MEDS ORDERED: VITAMIN D (CHOLECALCIFEROL) 400 INTERNATIONAL UNITS TAB PO SCH (09:00)
[2021-12-17] MEDS: methylPREDNISolone 125MG 2ML VIAL IV SCH ×3 (09:18→20:26)
[2021-12-17] MEDS: cefTRIAXone SOD 1 GM in D5W MINI-BAG PLUS 50 ML IV SCH (09:18)
[2021-12-17] MEDS: DOXYCYCLINE HYCLATE 100 MG in D5W MINI-BAG PLUS 100 ML IV SCH ×2 (09:21→20:24)
[2021-12-17] MEDS: APIXABAN 2.5 MG TAB (ELIQUIS) PO SCH ×2 (09:21→20:28)
[2021-12-17] MEDS: allopurinoL 300 MG TAB PO SCH (09:21)
[2021-12-17] MEDS: SITagliptin 50 MG TAB (JANUVIA) PO SCH (09:21)
[2021-12-17] MEDS: LEVEMIR (INSULIN DETEMIR) 1 UNITS/0.01ML SC SCH ×2 (09:34→20:25)
[2021-12-17 09:45] LABS: HEMATOCRIT 33.3 % (42.0-52.0); HEMOGLOBIN 10.2 g/dl (13.5-17.5); MEAN CORPUSCULAR HEMOGLOBIN 28.5 pg (27.0-33.0); MEAN CORPUSCULAR HGB CONC 30.6 g/dl (32.0-36.5); PLATELET COUNT, AUTOMATED 316 10^3/uL (150-450); RED BLOOD COUNT 3.58 10^6/uL (4.30-6.10); WHITE BLOOD COUNT 11.9 10^3/uL (4.0-10.0)
[2021-12-17 10:50] LABS: CALCIUM LEVEL 9.3 MG/DL (8.8-10.2); CREATININE FOR GFR 2.11 MG/DL (0.70-1.30); GLOMERULAR FILTRATION RATE 32.2 (>35); PERCENT SATURATION 8.1 % (19.7-50.0); POTASSIUM SERUM 4.8 MEQ/L (3.5-5.1)
[2021-12-17 12:58] LABS: HEMOGLOBIN 9.7 g/dl (13.5-17.5); MEAN CORPUSCULAR HEMOGLOBIN 28.3 pg (27.0-33.0); MEAN CORPUSCULAR HGB CONC 30.3 g/dl (32.0-36.5); MEAN CORPUSCULAR VOLUME 93.3 fl (80.0-96.0); PLATELET COUNT, AUTOMATED 303 10^3/uL (150-450); RED BLOOD COUNT 3.43 10^6/uL (4.30-6.10)
[2021-12-17 13:46] LABS: CREATININE,RANDOM URINE 47.2 MG/DL
[2021-12-17] MEDS ORDERED: FUROSEMIDE 100MG/10ML VIAL (J1940) IV ONE (14:15)
[2021-12-17] MEDS: LEVALBUTEROL 1.25 MG/0.5 ML CONCENTRATE NEB INH SCH ×3 (16:33→23:44)
[2021-12-17 18:37] LABS: HEMATOCRIT 30.9 % (42.0-52.0); HEMOGLOBIN 9.5 g/dl (13.5-17.5); MEAN CORPUSCULAR HEMOGLOBIN 28.2 pg (27.0-33.0); MEAN CORPUSCULAR HGB CONC 30.7 g/dl (32.0-36.5); MEAN CORPUSCULAR VOLUME 91.7 fl (80.0-96.0); PLATELET COUNT, AUTOMATED 314 10^3/uL (150-450); RED BLOOD COUNT 3.37 10^6/uL (4.30-6.10); WHITE BLOOD COUNT 7.7 10^3/uL (4.0-10.0)
[2021-12-17] MEDS: SENOKOT S TAB PO SCH (20:26)
[2021-12-17] MEDS: ROSUVASTATIN 10 MG TAB (CRESTOR) PO SCH (20:27)
[2021-12-17] MEDS: DULoxetine 30MG CAPSULE (CYMBALTA) PO SCH (20:28)
[2021-12-17] MEDS: METOPROLOL SUCC (TopROL XL) 100MG *XL* TAB PO SCH (20:28)
[2021-12-17] MEDS: FUROSEMIDE 100MG/10ML VIAL (J1940) IV SCH (21:09)
[2021-12-17] MEDS: PERCOCET 5MG/325MG TAB PO PRN (21:09)
[2021-12-18] VITALS (7 sets, daily range): BP systolic 117–139; BP diastolic 56–71
[2021-12-18] MEDS: LEVALBUTEROL 1.25 MG/0.5 ML CONCENTRATE NEB INH SCH ×6 (03:39→23:44)
[2021-12-18] MEDS: methylPREDNISolone 125MG 2ML VIAL IV SCH ×3 (05:32→21:08)
[2021-12-18] MEDS: FUROSEMIDE 100MG/10ML VIAL (J1940) IV SCH (05:33)
[2021-12-18] MEDS: cefTRIAXone SOD 1 GM in D5W MINI-BAG PLUS 50 ML IV SCH (05:33)
[2021-12-18] MEDS: ADVAIR HFA 115/21MCG INHALER INH SCH ×2 (07:05→19:56)
[2021-12-18] MEDS: TIOTROPIUM INHALER/CAPSULE (SPIRIVA) INH SCH (07:05)
[2021-12-18 07:30] LABS: CALCIUM LEVEL 8.8 MG/DL (8.8-10.2); CREATININE FOR GFR 2.25 MG/DL (0.70-1.30); GLOMERULAR FILTRATION RATE 29.9 (>35); POTASSIUM SERUM 4.2 MEQ/L (3.5-5.1)
[2021-12-18] MEDS: SITagliptin 50 MG TAB (JANUVIA) PO SCH (08:13)
[2021-12-18] MEDS: allopurinoL 300 MG TAB PO SCH (08:13)
[2021-12-18] MEDS: LEVEMIR (INSULIN DETEMIR) 1 UNITS/0.01ML SC SCH ×2 (08:13→21:09)
[2021-12-18] MEDS: APIXABAN 2.5 MG TAB (ELIQUIS) PO SCH ×2 (08:13→21:09)
[2021-12-18] MEDS: DOXYCYCLINE HYCLATE 100 MG in D5W MINI-BAG PLUS 100 ML IV SCH (08:13)
[2021-12-18] MEDS: SENOKOT S TAB PO SCH ×2 (08:13→21:08)
[2021-12-18 08:29] LABS: BASO % 0.1 % (0.0-1.0); HEMATOCRIT 29.8 % (42.0-52.0); HEMOGLOBIN 9.2 g/dl (13.5-17.5); LYMPH # 0.7 10^3/uL (1.5-5.0); LYMPH % 7.3 % (24.0-44.0); MEAN CORPUSCULAR HEMOGLOBIN 28.3 pg (27.0-33.0); MEAN CORPUSCULAR HGB CONC 30.9 g/dl (32.0-36.5); MEAN CORPUSCULAR VOLUME 91.7 fl (80.0-96.0); MONO # 0.4 10^3/uL (0.0-0.8); MONO % 4.4 % (2.0-8.0); NEUTROPHILS # 8.3 10^3/uL (1.5-8.5); NEUTROPHILS % 87.9 % (36.0-66.0); PLATELET COUNT, AUTOMATED 307 10^3/uL (150-450); RED BLOOD COUNT 3.25 10^6/uL (4.30-6.10); WHITE BLOOD COUNT 9.5 10^3/uL (4.0-10.0)
[2021-12-18] MEDS ORDERED: GLUCOSE 4GM CHEW TABLET PO PRN (17:20)
[2021-12-18] MEDS ORDERED: GLUCAGON INJ 1MG VIAL SC PRN (17:20)
[2021-12-18] MEDS ORDERED: DEXTROSE 50% 50 ML SYRINGE IV PRN (17:20)
[2021-12-18] MEDS: HumaLOG INSULIN (NovoLOG) PER UNIT SC SCH ×2 (18:39→21:10)
[2021-12-18] MEDS ORDERED: LEVEMIR (INSULIN DETEMIR) 1 UNITS/0.01ML SC SCH (21:00)
[2021-12-18] MEDS: ROSUVASTATIN 10 MG TAB (CRESTOR) PO SCH (21:08)
[2021-12-18] MEDS: DULoxetine 30MG CAPSULE (CYMBALTA) PO SCH (21:08)
[2021-12-18] MEDS: METOPROLOL SUCC (TopROL XL) 100MG *XL* TAB PO SCH (21:09)
[2021-12-18] MEDS: DOXYCYCLINE HYCLATE 100MG TABLET PO SCH (21:09)
[2021-12-19] MEDS: LEVALBUTEROL 1.25 MG/0.5 ML CONCENTRATE NEB INH SCH ×5 (03:30→19:36)
[2021-12-19 04:27] VITALS: BP 135/68
[2021-12-19 05:05] LABS: BASO % 0.1 % (0.0-1.0); HEMATOCRIT 28.9 % (42.0-52.0); HEMOGLOBIN 9.1 g/dl (13.5-17.5); LYMPH # 0.6 10^3/uL (1.5-5.0); LYMPH % 4.5 % (24.0-44.0); MEAN CORPUSCULAR HEMOGLOBIN 28.3 pg (27.0-33.0); MEAN CORPUSCULAR HGB CONC 31.5 g/dl (32.0-36.5); MONO # 0.5 10^3/uL (0.0-0.8); NEUTROPHILS # 11.5 10^3/uL (1.5-8.5); NEUTROPHILS % 90.8 % (36.0-66.0); PLATELET COUNT, AUTOMATED 320 10^3/uL (150-450); RED BLOOD COUNT 3.21 10^6/uL (4.30-6.10); WHITE BLOOD COUNT 12.7 10^3/uL (4.0-10.0)
[2021-12-19 05:36] LABS: CALCIUM LEVEL 9.1 MG/DL (8.8-10.2); CREATININE FOR GFR 2.34 MG/DL (0.70-1.30); GLOMERULAR FILTRATION RATE 28.6 (>35); POTASSIUM SERUM 3.7 MEQ/L (3.5-5.1)
[2021-12-19] MEDS: methylPREDNISolone 125MG 2ML VIAL IV SCH ×2 (05:58→17:02)
[2021-12-19] MEDS: TIOTROPIUM INHALER/CAPSULE (SPIRIVA) INH SCH (07:09)
[2021-12-19] MEDS: ADVAIR HFA 115/21MCG INHALER INH SCH ×2 (07:09→19:36)
[2021-12-19 08:00] VITALS: BP 125/67
[2021-12-19] MEDS: PERCOCET 5MG/325MG TAB PO PRN ×2 (08:58→20:37)
[2021-12-19] MEDS: DOXYCYCLINE HYCLATE 100MG TABLET PO SCH ×2 (08:58→20:22)
[2021-12-19] MEDS: SENOKOT S TAB PO SCH ×2 (08:58→20:22)
[2021-12-19] MEDS: SITagliptin 50 MG TAB (JANUVIA) PO SCH (09:00)
[2021-12-19] MEDS: allopurinoL 300 MG TAB PO SCH (09:00)
[2021-12-19] MEDS: APIXABAN 2.5 MG TAB (ELIQUIS) PO SCH ×2 (09:00→20:21)
[2021-12-19] MEDS: HumaLOG INSULIN (NovoLOG) PER UNIT SC SCH ×4 (09:01→20:39)
[2021-12-19] MEDS: LEVEMIR (INSULIN DETEMIR) 1 UNITS/0.01ML SC SCH ×2 (09:02→20:38)
[2021-12-19 12:00] VITALS: BP 127/59
[2021-12-19 16:00] VITALS: BP 134/74
[2021-12-19 16:12] LABS: BODY FLUID CULTURE Not indicated. (.); LEGIONELLA ANTIGEN URINE Negative (Negative); ORGANISM ID Not indicated. (.); SPECIMEN SOURCE Urine (.); URINE STREP PNEUMONIAE ANTIGEN Negative (Negative)
[2021-12-19 20:17] VITALS: BP 126/65
[2021-12-19] MEDS: DULoxetine 30MG CAPSULE (CYMBALTA) PO SCH (20:21)
[2021-12-19] MEDS: ROSUVASTATIN 10 MG TAB (CRESTOR) PO SCH (20:22)
[2021-12-19] MEDS: METOPROLOL SUCC (TopROL XL) 100MG *XL* TAB PO SCH (20:37)
[2021-12-20 00:02] VITALS: BP 117/58
[2021-12-20] MEDS: LEVALBUTEROL 1.25 MG/0.5 ML CONCENTRATE NEB INH SCH ×7 (03:32→23:18)
[2021-12-20 04:00] VITALS: BP 127/69
[2021-12-20] MEDS: methylPREDNISolone 125MG 2ML VIAL IV SCH (05:50)
[2021-12-20 06:27] LABS: BASO % 0.1 % (0.0-1.0); HEMOGLOBIN 9.5 g/dl (13.5-17.5); LYMPH # 0.7 10^3/uL (1.5-5.0); LYMPH % 5.1 % (24.0-44.0); MEAN CORPUSCULAR HEMOGLOBIN 28.8 pg (27.0-33.0); MEAN CORPUSCULAR HGB CONC 31.7 g/dl (32.0-36.5); MEAN CORPUSCULAR VOLUME 90.9 fl (80.0-96.0); MONO % 7.8 % (2.0-8.0); NEUTROPHILS # 11.1 10^3/uL (1.5-8.5); NEUTROPHILS % 86.4 % (36.0-66.0); PLATELET COUNT, AUTOMATED 312 10^3/uL (150-450); WHITE BLOOD COUNT 12.8 10^3/uL (4.0-10.0)
[2021-12-20 06:55] LABS: CALCIUM LEVEL 9.1 MG/DL (8.8-10.2); CREATININE FOR GFR 2.32 MG/DL (0.70-1.30); GLOMERULAR FILTRATION RATE 28.8 (>35); POTASSIUM SERUM 3.5 MEQ/L (3.5-5.1)
[2021-12-20] MEDS: ADVAIR HFA 115/21MCG INHALER INH SCH ×2 (07:30→19:14)
[2021-12-20] MEDS: TIOTROPIUM INHALER/CAPSULE (SPIRIVA) INH SCH (07:30)
[2021-12-20 08:00] VITALS: BP 132/62
[2021-12-20] MEDS: HumaLOG INSULIN (NovoLOG) PER UNIT SC SCH ×4 (08:01→21:00)
[2021-12-20] MEDS: SENOKOT S TAB PO SCH ×2 (08:02→20:57)
[2021-12-20] MEDS: LEVEMIR (INSULIN DETEMIR) 1 UNITS/0.01ML SC SCH ×2 (08:02→21:00)
[2021-12-20] MEDS: APIXABAN 2.5 MG TAB (ELIQUIS) PO SCH ×2 (08:03→20:59)
[2021-12-20] MEDS: DOXYCYCLINE HYCLATE 100MG TABLET PO SCH ×2 (08:04→20:59)
[2021-12-20] MEDS: PERCOCET 5MG/325MG TAB PO PRN ×2 (08:04→21:19)
[2021-12-20] MEDS: allopurinoL 300 MG TAB PO SCH (08:04)
[2021-12-20] MEDS: SITagliptin 50 MG TAB (JANUVIA) PO SCH (08:04)
[2021-12-20] MEDS: FUROSEMIDE 100MG/10ML VIAL (J1940) IV SCH ×2 (08:05→17:13)
[2021-12-20 20:00] VITALS: BP 135/81
[2021-12-20] MEDS: ROSUVASTATIN 10 MG TAB (CRESTOR) PO SCH (20:58)
[2021-12-20] MEDS: METOPROLOL SUCC (TopROL XL) 100MG *XL* TAB PO SCH (20:59)
[2021-12-20] MEDS: DULoxetine 30MG CAPSULE (CYMBALTA) PO SCH (20:59)
[2021-12-21] VITALS: BP 116/57
[2021-12-21] MEDS: LEVALBUTEROL 1.25 MG/0.5 ML CONCENTRATE NEB INH SCH ×5 (03:08→20:38)
[2021-12-21 04:00] VITALS: BP 125/74
[2021-12-21 05:44] LABS: BASO % 0.1 % (0.0-1.0); HEMOGLOBIN 9.8 g/dl (13.5-17.5); LYMPH # 1.1 10^3/uL (1.5-5.0); LYMPH % 7.3 % (24.0-44.0); MEAN CORPUSCULAR HEMOGLOBIN 28.4 pg (27.0-33.0); MEAN CORPUSCULAR HGB CONC 31.6 g/dl (32.0-36.5); MEAN CORPUSCULAR VOLUME 89.9 fl (80.0-96.0); MONO % 13.4 % (2.0-8.0); NEUTROPHILS # 11.3 10^3/uL (1.5-8.5); NEUTROPHILS % 78.4 % (36.0-66.0); PLATELET COUNT, AUTOMATED 300 10^3/uL (150-450); RED BLOOD COUNT 3.45 10^6/uL (4.30-6.10); WHITE BLOOD COUNT 14.4 10^3/uL (4.0-10.0)
[2021-12-21 06:04] LABS: CALCIUM LEVEL 8.7 MG/DL (8.8-10.2); CREATININE FOR GFR 2.32 MG/DL (0.70-1.30); GLOMERULAR FILTRATION RATE 28.8 (>35); POTASSIUM SERUM 3.4 MEQ/L (3.5-5.1)
[2021-12-21 06:10] LABS: MONO # 1.9 10^3/uL (0.0-0.8)
[2021-12-21] MEDS: TIOTROPIUM INHALER/CAPSULE (SPIRIVA) INH SCH (07:08)
[2021-12-21] MEDS: ADVAIR HFA 115/21MCG INHALER INH SCH ×2 (07:09→20:39)
[2021-12-21 08:00] VITALS: BP 136/97
[2021-12-21] MEDS: SENOKOT S TAB PO SCH ×2 (08:01→21:19)
[2021-12-21] MEDS: SITagliptin 50 MG TAB (JANUVIA) PO SCH (08:01)
[2021-12-21] MEDS: FUROSEMIDE 100MG/10ML VIAL (J1940) IV SCH (08:01)
[2021-12-21] MEDS: DOXYCYCLINE HYCLATE 100MG TABLET PO SCH ×2 (08:02→21:20)
[2021-12-21] MEDS: LEVEMIR (INSULIN DETEMIR) 1 UNITS/0.01ML SC SCH ×2 (08:02→21:19)
[2021-12-21] MEDS: allopurinoL 300 MG TAB PO SCH (08:02)
[2021-12-21] MEDS: APIXABAN 2.5 MG TAB (ELIQUIS) PO SCH ×2 (08:02→21:21)
[2021-12-21] MEDS: HumaLOG INSULIN (NovoLOG) PER UNIT SC SCH ×4 (08:03→20:26)
[2021-12-21] MEDS ORDERED: predniSONE 20 MG TAB PO SCH (09:00)
[2021-12-21] MEDS ORDERED: POTASSIUM CHLORIDE 10MEQ SR TABLET PO ONE (14:40)
[2021-12-21 16:00] VITALS: BP 127/63
[2021-12-21] MEDS: TORSEMIDE 20 MG TAB PO SCH (17:09)
[2021-12-21 20:00] VITALS: BP 138/81
[2021-12-21] MEDS: DULoxetine 30MG CAPSULE (CYMBALTA) PO SCH (21:20)
[2021-12-21] MEDS: ROSUVASTATIN 10 MG TAB (CRESTOR) PO SCH (21:20)
[2021-12-21] MEDS: METOPROLOL SUCC (TopROL XL) 100MG *XL* TAB PO SCH (21:21)
[2021-12-21] MEDS: PERCOCET 5MG/325MG TAB PO PRN (21:29)
[2021-12-22] VITALS: BP 126/65
[2021-12-22] MEDS: LEVALBUTEROL 1.25 MG/0.5 ML CONCENTRATE NEB INH SCH ×5 (03:59→15:41)
[2021-12-22 04:00] VITALS: BP 132/80
[2021-12-22 06:32] LABS: BASO % 0.1 % (0.0-1.0); EOS # 0.1 10^3/uL (0.0-0.5); EOS % 0.3 % (0.0-3.0); HEMATOCRIT 32.9 % (42.0-52.0); HEMOGLOBIN 10.3 g/dl (13.5-17.5); LYMPH # 1.7 10^3/uL (1.5-5.0); LYMPH % 9.3 % (24.0-44.0); MEAN CORPUSCULAR HEMOGLOBIN 28.5 pg (27.0-33.0); MEAN CORPUSCULAR HGB CONC 31.3 g/dl (32.0-36.5); MEAN CORPUSCULAR VOLUME 91.1 fl (80.0-96.0); MONO % 14.4 % (2.0-8.0); NEUTROPHILS # 13.5 10^3/uL (1.5-8.5); NEUTROPHILS % 74.8 % (36.0-66.0); PLATELET COUNT, AUTOMATED 318 10^3/uL (150-450); RED BLOOD COUNT 3.61 10^6/uL (4.30-6.10)
[2021-12-22 06:33] LABS: MONO # 2.6 10^3/uL (0.0-0.8)
[2021-12-22 06:57] LABS: CALCIUM LEVEL 8.7 MG/DL (8.8-10.2); CREATININE FOR GFR 2.2 MG/DL (0.70-1.30); GLOMERULAR FILTRATION RATE 30.7 (>35); POTASSIUM SERUM 3.4 MEQ/L (3.5-5.1)
[2021-12-22 07:44] VITALS: BP 134/73
[2021-12-22] MEDS ORDERED: POTASSIUM CHLORIDE 10MEQ SR TABLET PO ONE (08:00)
[2021-12-22] MEDS: TORSEMIDE 20 MG TAB PO SCH (08:22)
[2021-12-22] MEDS: HumaLOG INSULIN (NovoLOG) PER UNIT SC SCH ×2 (08:22→12:24)
[2021-12-22] MEDS: DOXYCYCLINE HYCLATE 100MG TABLET PO SCH (08:22)
[2021-12-22] MEDS: allopurinoL 300 MG TAB PO SCH (08:23)
[2021-12-22] MEDS: SITagliptin 50 MG TAB (JANUVIA) PO SCH (08:23)
[2021-12-22] MEDS: SENOKOT S TAB PO SCH (08:23)
[2021-12-22] MEDS: APIXABAN 2.5 MG TAB (ELIQUIS) PO SCH (08:23)
[2021-12-22 08:24] VITALS: BP 134/73
[2021-12-22] MEDS: ADVAIR HFA 115/21MCG INHALER INH SCH (08:34)
[2021-12-22] MEDS: TIOTROPIUM INHALER/CAPSULE (SPIRIVA) INH SCH (08:34)
[2021-12-22] MEDS ORDERED: LEVEMIR (INSULIN DETEMIR) 1 UNITS/0.01ML SC SCH (09:00)
[2021-12-22] MEDS ORDERED: predniSONE 10 MG TAB PO SCH (09:00)
[2021-12-22] MEDS ORDERED: POTA-151 PO (11:22)
[2021-12-22] MEDS ORDERED: TORS20TA2 PO (11:22)
[2021-12-22] MEDS ORDERED: PRED10TA2 PO (11:22)
[2021-12-23] MEDS ORDERED: POTA1TAB14 PO (09:41)
[2021-12-23] MEDS ORDERED: TORS20TA2 PO (09:41)
[2021-12-23] MEDS ORDERED: PRED10TA2 PO (09:41)
== END 2021-12-22 16:38 | disposition home health service (06) | DRG 291 ==
LOC: M ED 00:26 → M ED INP 03:36 → ENRESERV 14:32 → M PCU 15:47
PROVIDERS: ADMIT Family Medicine; ATTEND Internal Medicine Nephrology
PROC: 5A09357 Assistance with Respiratory Ventilation, Less than 24 Consecutive Hours, Continuous Positive Airway Pressure (ICD-10-PCS; principal; 2021-12-17)
DX: I13.0 Hypertensive heart and chronic kidney disease with heart failure and stage 1 through stage 4 chronic kidney disease, or unspecified chronic kidney disease (principal); J96.22 Acute and chronic respiratory failure with hypercapnia; J96.21 Acute and chronic respiratory failure with hypoxia; I50.33 Acute on chronic diastolic (congestive) heart failure; I48.20 Chronic atrial fibrillation, unspecified; N17.9 Acute kidney failure, unspecified; J44.1 Chronic obstructive pulmonary disease with (acute) exacerbation; Z66 Do not resuscitate; E78.5 Hyperlipidemia, unspecified; E11.22 Type 2 diabetes mellitus with diabetic chronic kidney disease; Z99.81 Dependence on supplemental oxygen; N18.30 Chronic kidney disease, stage 3 unspecified; K21.9 Gastro-esophageal reflux disease without esophagitis; D50.9 Iron deficiency anemia, unspecified; E66.01 Morbid (severe) obesity due to excess calories; Z87.891 Personal history of nicotine dependence; D72.829 Elevated white blood cell count, unspecified; Z79.01 Long term (current) use of anticoagulants; Z79.4 Long term (current) use of insulin; Z79.899 Other long term (current) drug therapy; Z88.0 Allergy status to penicillin; Z88.6 Allergy status to analgesic agent; Z68.39 Body mass index [BMI] 39.0-39.9, adult; R33.9 Retention of urine, unspecified; I27.20 Pulmonary hypertension, unspecified; G47.33 Obstructive sleep apnea (adult) (pediatric); M10.9 Gout, unspecified; M54.9 Dorsalgia, unspecified; G89.29 Other chronic pain; Z20.822 Contact with and (suspected) exposure to COVID-19

== ENCOUNTER 2021-12-23 07:44 | Inpatient (IN) | payer MEDICARE, OTHER ==
[~2021-12-23] VITALS: Ht 185.4 cm; Wt 132.1 kg
[2021-12-23] VITALS (9 sets, daily range): BP systolic 116–135; BP diastolic 55–73
[~2021-12-23 07:44] MED LIST changes: +ADV250INH INH; +AZIT-12 PO; +D-40TAB2 PO; +DILT120C77 PO; +DULO60CA35 PO; +ELIQ2.5T PO; +GUAI400T9 PO; +LEVA0.6322 INH; +MUSC1CRE EXT; +PATIENT COMMENT; +POTA-151 PO; +PRED10TA2 PO; +ROSU40TA4 PO
[2021-12-23 08:05] LABS: ABG BASE EXCESS 4.7 (-2.0-2.0); ABG HCO3 33.7 MEQ/L (22.0-26.0); ABG O2 SATURATION 96.4 % (95.0-99.0); ABG PARTIAL PRESSURE O2 89.6 mmHg (75.0-100.0); ABG STANDARD HCO3 28.7 MEQ/L (22.0-26.0); ABG TOTAL CO2 35.9 MEQ/L (23.0-31.0); ABG pH (ARTERIAL) 7.278 UNITS (7.350-7.450)
[2021-12-23] MEDS ORDERED: FUROSEMIDE 100MG/10ML VIAL (J1940) IV ONE (08:05)
[2021-12-23 08:09] LABS: ABG PARTIAL PRESSURE CO2 73.6 mmHg (35.0-45.0)
[2021-12-23] MEDS ORDERED: LIDOCAINE 2% 5ML JELLY UROJET TOP ONE (08:15)
[2021-12-23 08:27] LABS: BASO # 0.1 10^3/uL (0.0-0.2); BASO % 0.3 % (0.0-1.0); EOS # 0.2 10^3/uL (0.0-0.5); EOS % 0.6 % (0.0-3.0); HEMATOCRIT 38.3 % (42.0-52.0); HEMOGLOBIN 11.7 g/dl (13.5-17.5); LYMPH # 2.7 10^3/uL (1.5-5.0); LYMPH % 8.8 % (24.0-44.0); MEAN CORPUSCULAR HEMOGLOBIN 28.2 pg (27.0-33.0); MEAN CORPUSCULAR HGB CONC 30.5 g/dl (32.0-36.5); MEAN CORPUSCULAR VOLUME 92.3 fl (80.0-96.0); MONO % 11.7 % (2.0-8.0); NEUTROPHILS # 23.8 10^3/uL (1.5-8.5); NEUTROPHILS % 77.2 % (36.0-66.0); PLATELET COUNT, AUTOMATED 376 10^3/uL (150-450); RED BLOOD COUNT 4.15 10^6/uL (4.30-6.10)
[2021-12-23 08:33] LABS: MONO # 3.6 10^3/uL (0.0-0.8); WHITE BLOOD COUNT 30.8 10^3/uL (4.0-10.0)
[2021-12-23 08:52] LABS: CALCIUM LEVEL 8.9 MG/DL (8.8-10.2); CREATININE FOR GFR 2.13 MG/DL (0.70-1.30); GLOMERULAR FILTRATION RATE 31.8 (>35); POTASSIUM SERUM 4.3 MEQ/L (3.5-5.1)
[2021-12-23] MEDS ORDERED: DIGOXIN INJ 0.5 MG/2 ML AMP (J1160) IV ONE (09:00)
[2021-12-23] MEDS ORDERED: predniSONE 10 MG TAB PO SCH ×2 (09:00→10:05)
[2021-12-23 09:23] LABS: ABG BASE EXCESS 0.8 (-2.0-2.0); ABG HCO3 26.3 MEQ/L (22.0-26.0); ABG PARTIAL PRESSURE CO2 45.9 mmHg (35.0-45.0); ABG PARTIAL PRESSURE O2 90.7 mmHg (75.0-100.0); ABG STANDARD HCO3 25.2 MEQ/L (22.0-26.0); ABG TOTAL CO2 27.7 MEQ/L (23.0-31.0); ABG pH (ARTERIAL) 7.376 UNITS (7.350-7.450)
[2021-12-23] MEDS ORDERED: PRED10TA2 PO (09:41)
[2021-12-23] MEDS ORDERED: TORS20TA2 PO (09:41)
[2021-12-23] MEDS ORDERED: POTA1TAB14 PO (09:41)
[2021-12-23] MEDS ORDERED: ALBUTEROL 90 MCG/ACT 8GM HFA INHALER INH PRN (10:05)
[2021-12-23] MEDS ORDERED: SENOKOT S TAB PO PRN (10:05)
[2021-12-23] MEDS ORDERED: LEVALBUTEROL 1.25 MG/0.5 ML CONCENTRATE NEB NEB PRN (10:05)
[2021-12-23] MEDS ORDERED: SODIUM CHLORIDE NASAL 0.65% SPRAY BTL (OCEAN) PRN (10:05)
[2021-12-23] MEDS ORDERED: GLUCOSE 4GM CHEW TABLET PO PRN (10:20)
[2021-12-23] MEDS ORDERED: DEXTROSE 50% 50 ML SYRINGE IV PRN (10:20)
[2021-12-23] MEDS ORDERED: GLUCAGON INJ 1MG VIAL SC PRN (10:20)
[2021-12-23] MEDS: HumaLOG INSULIN (NovoLOG) PER UNIT SC SCH ×3 (11:48→21:00)
[2021-12-23] MEDS: IPRATROPIUM 0.5MG/ALBUTEROL 2.5MG INH SOL UD 3ML (DUONEB) NEB SCH ×2 (14:27→20:00)
[2021-12-23] MEDS ORDERED: POLYVINYL ALCOHOL OPHTH SOLN 15 ML(LIQUITEARS) OU PRN (14:30)
[2021-12-23] MEDS ORDERED: methylPREDNISolone 125MG 2ML VIAL IV ONE (14:30)
[2021-12-23] MEDS ORDERED: ANALGESIC BALM CRM 3OZ EXT PRN (16:00)
[2021-12-23] MEDS: METOPROLOL SUCC (TopROL XL) 100MG *XL* TAB PO SCH (18:56)
[2021-12-23] MEDS: PERCOCET 5MG/325MG TAB PO PRN (18:57)
[2021-12-23] MEDS: ADVAIR HFA 115/21MCG INHALER INH SCH (20:44)
[2021-12-23] MEDS ORDERED: HumaLOG INSULIN (NovoLOG) PER UNIT SC SCH (21:00)
[2021-12-23] MEDS: ROSUVASTATIN 10 MG TAB (CRESTOR) PO SCH (21:09)
[2021-12-23] MEDS: LEVEMIR (INSULIN DETEMIR) 1 UNITS/0.01ML SC SCH (21:10)
[2021-12-23] MEDS: DULoxetine 30MG CAPSULE (CYMBALTA) PO SCH (21:10)
[2021-12-23] MEDS: APIXABAN 2.5 MG TAB (ELIQUIS) PO SCH (21:10)
[2021-12-23] MEDS: HEPARIN SOD (PORCINE) 5000UNITS/ML 1ML VIAL/SYRINGE SC SCH (21:10)
[2021-12-24] VITALS (10 sets, daily range): BP systolic 121–147; BP diastolic 63–79
[2021-12-24] MEDS: IPRATROPIUM 0.5MG/ALBUTEROL 2.5MG INH SOL UD 3ML (DUONEB) NEB SCH ×4 (02:00→18:18)
[2021-12-24] MEDS ORDERED: diltiaZEM 125 MG in NS 100 ML IV SCH (02:45)
[2021-12-24 05:18] LABS: CALCIUM LEVEL 8.8 MG/DL (8.8-10.2); CREATININE FOR GFR 2.37 MG/DL (0.70-1.30); GLOMERULAR FILTRATION RATE 28.1 (>35); MAGNESIUM LEVEL 2.6 MG/DL (1.8-2.4); POTASSIUM SERUM 4.4 MEQ/L (3.5-5.1)
[2021-12-24 05:24] LABS: HEMATOCRIT 33.3 % (42.0-52.0); HEMOGLOBIN 10.2 g/dl (13.5-17.5); MEAN CORPUSCULAR HEMOGLOBIN 28.2 pg (27.0-33.0); MEAN CORPUSCULAR HGB CONC 30.6 g/dl (32.0-36.5); PLATELET COUNT, AUTOMATED 288 10^3/uL (150-450); RED BLOOD COUNT 3.62 10^6/uL (4.30-6.10); WHITE BLOOD COUNT 18.1 10^3/uL (4.0-10.0)
[2021-12-24] MEDS: TIOTROPIUM INHALER/CAPSULE (SPIRIVA) INH SCH (08:16)
[2021-12-24] MEDS: ADVAIR HFA 115/21MCG INHALER INH SCH ×2 (08:17→18:18)
[2021-12-24] MEDS: VITAMIN D (CHOLECALCIFEROL) 400 INTERNATIONAL UNITS TAB PO SCH (08:47)
[2021-12-24] MEDS: POTASSIUM CHLORIDE 10MEQ SR TABLET PO SCH (08:48)
[2021-12-24] MEDS: predniSONE 10 MG TAB PO SCH (08:49)
[2021-12-24] MEDS: OMEPRAZOLE 20MG CAP PO SCH (08:49)
[2021-12-24] MEDS: APIXABAN 2.5 MG TAB (ELIQUIS) PO SCH ×2 (08:49→21:16)
[2021-12-24] MEDS: LEVEMIR (INSULIN DETEMIR) 1 UNITS/0.01ML SC SCH ×2 (08:50→21:12)
[2021-12-24] MEDS: allopurinoL 300 MG TAB PO SCH (08:50)
[2021-12-24] MEDS: HEPARIN SOD (PORCINE) 5000UNITS/ML 1ML VIAL/SYRINGE SC SCH ×2 (08:51→21:16)
[2021-12-24] MEDS: HumaLOG INSULIN (NovoLOG) PER UNIT SC SCH ×4 (08:51→20:55)
[2021-12-24] MEDS ORDERED: FUROSEMIDE 100MG/10ML VIAL (J1940) IV SCH (09:00)
[2021-12-24] MEDS ORDERED: AZITHROMYCIN 250MG TABLET PO SCH (09:00)
[2021-12-24] MEDS ORDERED: LevoFLOXacin 750 MG TABLET PO ONE (09:00)
[2021-12-24] MEDS: CEFDINIR 300 MG CAP (OMNICEF) PO SCH ×2 (12:18→21:13)
[2021-12-24] MEDS: DOXYCYCLINE HYCLATE 100MG TABLET PO SCH ×2 (12:18→21:16)
[2021-12-24] MEDS: ROSUVASTATIN 10 MG TAB (CRESTOR) PO SCH (21:13)
[2021-12-24] MEDS: DULoxetine 30MG CAPSULE (CYMBALTA) PO SCH (21:15)
[2021-12-24] MEDS: PERCOCET 5MG/325MG TAB PO PRN (21:15)
[2021-12-24] MEDS: METOPROLOL SUCC (TopROL XL) 100MG *XL* TAB PO SCH (21:16)
[2021-12-25] VITALS: BP 106/73
[2021-12-25] MEDS: IPRATROPIUM 0.5MG/ALBUTEROL 2.5MG INH SOL UD 3ML (DUONEB) NEB SCH ×4 (02:36→20:00)
[2021-12-25 04:15] VITALS: BP 113/68
[2021-12-25 05:28] LABS: HEMATOCRIT 32.7 % (42.0-52.0); HEMOGLOBIN 10.2 g/dl (13.5-17.5); MEAN CORPUSCULAR HEMOGLOBIN 28.3 pg (27.0-33.0); MEAN CORPUSCULAR HGB CONC 31.2 g/dl (32.0-36.5); MEAN CORPUSCULAR VOLUME 90.6 fl (80.0-96.0); PLATELET COUNT, AUTOMATED 306 10^3/uL (150-450); RED BLOOD COUNT 3.61 10^6/uL (4.30-6.10); WHITE BLOOD COUNT 20.2 10^3/uL (4.0-10.0)
[2021-12-25 05:46] LABS: CALCIUM LEVEL 8.9 MG/DL (8.8-10.2); CREATININE FOR GFR 2.27 MG/DL (0.70-1.30); GLOMERULAR FILTRATION RATE 29.6 (>35); POTASSIUM SERUM 3.6 MEQ/L (3.5-5.1)
[2021-12-25] MEDS: TIOTROPIUM INHALER/CAPSULE (SPIRIVA) INH SCH (07:28)
[2021-12-25] MEDS ORDERED: CEFD300CAP PO (08:42)
[2021-12-25] MEDS ORDERED: DOXY100T PO (08:42)
[2021-12-25] MEDS: HumaLOG INSULIN (NovoLOG) PER UNIT SC SCH ×4 (08:59→21:00)
[2021-12-25] MEDS: HEPARIN SOD (PORCINE) 5000UNITS/ML 1ML VIAL/SYRINGE SC SCH (08:59)
[2021-12-25] MEDS: predniSONE 10 MG TAB PO SCH (09:00)
[2021-12-25] MEDS: APIXABAN 2.5 MG TAB (ELIQUIS) PO SCH ×2 (09:00→21:34)
[2021-12-25] MEDS: DOXYCYCLINE HYCLATE 100MG TABLET PO SCH ×2 (09:00→21:34)
[2021-12-25] MEDS: LEVEMIR (INSULIN DETEMIR) 1 UNITS/0.01ML SC SCH ×2 (09:00→21:33)
[2021-12-25] MEDS: TORSEMIDE 20 MG TAB PO SCH ×2 (09:01→21:34)
[2021-12-25] MEDS: VITAMIN D (CHOLECALCIFEROL) 400 INTERNATIONAL UNITS TAB PO SCH (09:01)
[2021-12-25] MEDS: CEFDINIR 300 MG CAP (OMNICEF) PO SCH ×2 (09:01→21:35)
[2021-12-25] MEDS: POTASSIUM CHLORIDE 10MEQ SR TABLET PO SCH (09:01)
[2021-12-25] MEDS: OMEPRAZOLE 20MG CAP PO SCH (09:01)
[2021-12-25] MEDS: allopurinoL 300 MG TAB PO SCH (09:02)
[2021-12-25] MEDS: ADVAIR HFA 115/21MCG INHALER INH SCH ×2 (10:09→20:14)
[2021-12-25 12:00] VITALS: BP 101/68
[2021-12-25 15:00] VITALS: BP 137/67
[2021-12-25] MEDS: PERCOCET 5MG/325MG TAB PO PRN (15:14)
[2021-12-25] MEDS: ROSUVASTATIN 10 MG TAB (CRESTOR) PO SCH (21:34)
[2021-12-25] MEDS: METOPROLOL SUCC (TopROL XL) 100MG *XL* TAB PO SCH (21:34)
[2021-12-25] MEDS: DULoxetine 30MG CAPSULE (CYMBALTA) PO SCH (21:34)
[2021-12-25 22:00] VITALS: BP 129/68
[2021-12-26] MEDS: IPRATROPIUM 0.5MG/ALBUTEROL 2.5MG INH SOL UD 3ML (DUONEB) NEB SCH ×4 (01:19→20:00)
[2021-12-26 06:19] VITALS: BP 108/78
[2021-12-26 06:41] LABS: HEMATOCRIT 33.6 % (42.0-52.0); HEMOGLOBIN 10.5 g/dl (13.5-17.5); MEAN CORPUSCULAR HEMOGLOBIN 28.2 pg (27.0-33.0); MEAN CORPUSCULAR HGB CONC 31.3 g/dl (32.0-36.5); MEAN CORPUSCULAR VOLUME 90.3 fl (80.0-96.0); PLATELET COUNT, AUTOMATED 298 10^3/uL (150-450); RED BLOOD COUNT 3.72 10^6/uL (4.30-6.10); WHITE BLOOD COUNT 19.1 10^3/uL (4.0-10.0)
[2021-12-26 07:06] LABS: CALCIUM LEVEL 8.9 MG/DL (8.8-10.2); CREATININE FOR GFR 2.14 MG/DL (0.70-1.30); GLOMERULAR FILTRATION RATE 31.7 (>35); POTASSIUM SERUM 4.1 MEQ/L (3.5-5.1)
[2021-12-26] MEDS: TIOTROPIUM INHALER/CAPSULE (SPIRIVA) INH SCH (08:27)
[2021-12-26] MEDS: ADVAIR HFA 115/21MCG INHALER INH SCH ×2 (08:27→20:09)
[2021-12-26] MEDS: HumaLOG INSULIN (NovoLOG) PER UNIT SC SCH ×4 (08:44→21:00)
[2021-12-26] MEDS: MORPHINE SULFATE ORAL SOLN 10 MG/5 ML UD PO SCH ×4 (08:44→21:20)
[2021-12-26] MEDS: allopurinoL 300 MG TAB PO SCH (08:45)
[2021-12-26] MEDS: CEFDINIR 300 MG CAP (OMNICEF) PO SCH ×2 (08:45→21:17)
[2021-12-26] MEDS: LEVEMIR (INSULIN DETEMIR) 1 UNITS/0.01ML SC SCH ×2 (08:45→21:18)
[2021-12-26] MEDS: APIXABAN 2.5 MG TAB (ELIQUIS) PO SCH ×2 (08:46→21:17)
[2021-12-26] MEDS: VITAMIN D (CHOLECALCIFEROL) 400 INTERNATIONAL UNITS TAB PO SCH (08:46)
[2021-12-26] MEDS: OMEPRAZOLE 20MG CAP PO SCH (08:46)
[2021-12-26] MEDS: predniSONE 10 MG TAB PO SCH (08:46)
[2021-12-26] MEDS: DOXYCYCLINE HYCLATE 100MG TABLET PO SCH ×2 (08:46→21:17)
[2021-12-26] MEDS: POTASSIUM CHLORIDE 10MEQ SR TABLET PO SCH (08:46)
[2021-12-26] MEDS: TORSEMIDE 20 MG TAB PO SCH ×2 (08:55→21:18)
[2021-12-26] MEDS: ROSUVASTATIN 10 MG TAB (CRESTOR) PO SCH (21:17)
[2021-12-26] MEDS: DULoxetine 30MG CAPSULE (CYMBALTA) PO SCH (21:17)
[2021-12-26] MEDS: METOPROLOL SUCC (TopROL XL) 100MG *XL* TAB PO SCH (21:18)
[2021-12-27] MEDS: IPRATROPIUM 0.5MG/ALBUTEROL 2.5MG INH SOL UD 3ML (DUONEB) NEB SCH ×4 (00:40→19:52)
[2021-12-27] MEDS: MORPHINE SULFATE ORAL SOLN 10 MG/5 ML UD PO SCH ×6 (01:57→20:11)
[2021-12-27 06:00] VITALS: BP 131/75
[2021-12-27 07:14] LABS: HEMATOCRIT 30.8 % (42.0-52.0); HEMOGLOBIN 9.7 g/dl (13.5-17.5); MEAN CORPUSCULAR HGB CONC 31.5 g/dl (32.0-36.5); MEAN CORPUSCULAR VOLUME 88.8 fl (80.0-96.0); PLATELET COUNT, AUTOMATED 280 10^3/uL (150-450); RED BLOOD COUNT 3.47 10^6/uL (4.30-6.10); WHITE BLOOD COUNT 16.7 10^3/uL (4.0-10.0)
[2021-12-27 07:29] LABS: CALCIUM LEVEL 8.5 MG/DL (8.8-10.2); CREATININE FOR GFR 2.09 MG/DL (0.70-1.30); GLOMERULAR FILTRATION RATE 32.5 (>35)
[2021-12-27] MEDS: TIOTROPIUM INHALER/CAPSULE (SPIRIVA) INH SCH (08:00)
[2021-12-27] MEDS: ADVAIR HFA 115/21MCG INHALER INH SCH ×2 (08:11→19:52)
[2021-12-27] MEDS: HumaLOG INSULIN (NovoLOG) PER UNIT SC SCH ×4 (08:46→20:45)
[2021-12-27] MEDS: LEVEMIR (INSULIN DETEMIR) 1 UNITS/0.01ML SC SCH ×2 (08:47→20:09)
[2021-12-27] MEDS: OMEPRAZOLE 20MG CAP PO SCH (08:49)
[2021-12-27] MEDS: DOXYCYCLINE HYCLATE 100MG TABLET PO SCH ×2 (08:49→20:10)
[2021-12-27] MEDS: allopurinoL 300 MG TAB PO SCH (08:49)
[2021-12-27] MEDS: CEFDINIR 300 MG CAP (OMNICEF) PO SCH ×2 (08:49→20:09)
[2021-12-27] MEDS: TORSEMIDE 20 MG TAB PO SCH ×2 (08:50→20:10)
[2021-12-27] MEDS: VITAMIN D (CHOLECALCIFEROL) 400 INTERNATIONAL UNITS TAB PO SCH (08:50)
[2021-12-27] MEDS: predniSONE 10 MG TAB PO SCH (08:50)
[2021-12-27] MEDS: POTASSIUM CHLORIDE 10MEQ SR TABLET PO SCH (08:50)
[2021-12-27] MEDS: APIXABAN 2.5 MG TAB (ELIQUIS) PO SCH ×2 (08:50→20:09)
[2021-12-27 20:04] VITALS: BP 143/78
[2021-12-27] MEDS: DULoxetine 30MG CAPSULE (CYMBALTA) PO SCH (20:09)
[2021-12-27] MEDS: ROSUVASTATIN 10 MG TAB (CRESTOR) PO SCH (20:10)
[2021-12-27] MEDS: METOPROLOL SUCC (TopROL XL) 100MG *XL* TAB PO SCH (20:10)
[2021-12-28] MEDS: MORPHINE SULFATE ORAL SOLN 10 MG/5 ML UD PO SCH ×6 (01:00→22:02)
[2021-12-28] MEDS: IPRATROPIUM 0.5MG/ALBUTEROL 2.5MG INH SOL UD 3ML (DUONEB) NEB SCH ×4 (01:14→19:59)
[2021-12-28 06:15] VITALS: BP 124/76
[2021-12-28 06:52] LABS: HEMATOCRIT 32.7 % (42.0-52.0); HEMOGLOBIN 10.2 g/dl (13.5-17.5); MEAN CORPUSCULAR HEMOGLOBIN 28.3 pg (27.0-33.0); MEAN CORPUSCULAR HGB CONC 31.2 g/dl (32.0-36.5); MEAN CORPUSCULAR VOLUME 90.6 fl (80.0-96.0); PLATELET COUNT, AUTOMATED 283 10^3/uL (150-450); RED BLOOD COUNT 3.61 10^6/uL (4.30-6.10); WHITE BLOOD COUNT 17.5 10^3/uL (4.0-10.0)
[2021-12-28 07:17] LABS: CALCIUM LEVEL 8.8 MG/DL (8.8-10.2); CREATININE FOR GFR 2.15 MG/DL (0.70-1.30); GLOMERULAR FILTRATION RATE 31.5 (>35); POTASSIUM SERUM 3.8 MEQ/L (3.5-5.1)
[2021-12-28] MEDS: ADVAIR HFA 115/21MCG INHALER INH SCH ×2 (08:04→19:58)
[2021-12-28] MEDS: TIOTROPIUM INHALER/CAPSULE (SPIRIVA) INH SCH (08:05)
[2021-12-28] MEDS: LEVEMIR (INSULIN DETEMIR) 1 UNITS/0.01ML SC SCH ×2 (08:10→22:06)
[2021-12-28] MEDS: HumaLOG INSULIN (NovoLOG) PER UNIT SC SCH ×4 (08:11→22:06)
[2021-12-28] MEDS: TORSEMIDE 20 MG TAB PO SCH ×2 (08:12→22:03)
[2021-12-28] MEDS: CEFDINIR 300 MG CAP (OMNICEF) PO SCH ×2 (08:12→22:02)
[2021-12-28] MEDS: VITAMIN D (CHOLECALCIFEROL) 400 INTERNATIONAL UNITS TAB PO SCH (08:12)
[2021-12-28] MEDS: predniSONE 10 MG TAB PO SCH (08:12)
[2021-12-28] MEDS: OMEPRAZOLE 20MG CAP PO SCH (08:12)
[2021-12-28] MEDS: POTASSIUM CHLORIDE 10MEQ SR TABLET PO SCH (08:12)
[2021-12-28] MEDS: DOXYCYCLINE HYCLATE 100MG TABLET PO SCH ×2 (08:13→22:03)
[2021-12-28] MEDS: allopurinoL 300 MG TAB PO SCH (08:13)
[2021-12-28] MEDS: APIXABAN 2.5 MG TAB (ELIQUIS) PO SCH ×2 (08:13→22:02)
[2021-12-28] MEDS: SENOKOT S TAB PO SCH (13:46)
[2021-12-28] MEDS: MIRALAX *UNIT DOSE* 17GM PACKET PO SCH ×2 (13:46→22:05)
[2021-12-28] MEDS: DULoxetine 30MG CAPSULE (CYMBALTA) PO SCH (22:02)
[2021-12-28] MEDS: ROSUVASTATIN 10 MG TAB (CRESTOR) PO SCH (22:02)
[2021-12-28] MEDS: METOPROLOL SUCC (TopROL XL) 100MG *XL* TAB PO SCH (22:05)
[2021-12-29] MEDS: MORPHINE SULFATE ORAL SOLN 10 MG/5 ML UD PO SCH ×6 (01:00→21:58)
[2021-12-29] MEDS: IPRATROPIUM 0.5MG/ALBUTEROL 2.5MG INH SOL UD 3ML (DUONEB) NEB SCH ×4 (02:25→20:00)
[2021-12-29 06:00] VITALS: BP 147/79
[2021-12-29] MEDS: ADVAIR HFA 115/21MCG INHALER INH SCH ×2 (08:09→20:21)
[2021-12-29] MEDS: TIOTROPIUM INHALER/CAPSULE (SPIRIVA) INH SCH (08:09)
[2021-12-29] MEDS: SENOKOT S TAB PO SCH (08:12)
[2021-12-29] MEDS: TORSEMIDE 20 MG TAB PO SCH ×2 (08:12→21:33)
[2021-12-29] MEDS: OMEPRAZOLE 20MG CAP PO SCH (08:12)
[2021-12-29] MEDS: MIRALAX *UNIT DOSE* 17GM PACKET PO SCH ×2 (08:13→21:32)
[2021-12-29] MEDS: APIXABAN 2.5 MG TAB (ELIQUIS) PO SCH ×2 (08:13→21:33)
[2021-12-29] MEDS: allopurinoL 300 MG TAB PO SCH (08:13)
[2021-12-29] MEDS: POTASSIUM CHLORIDE 10MEQ SR TABLET PO SCH (08:13)
[2021-12-29] MEDS: predniSONE 10 MG TAB PO SCH (08:13)
[2021-12-29] MEDS: HumaLOG INSULIN (NovoLOG) PER UNIT SC SCH ×4 (08:14→21:00)
[2021-12-29] MEDS: LEVEMIR (INSULIN DETEMIR) 1 UNITS/0.01ML SC SCH ×2 (08:14→21:32)
[2021-12-29] MEDS: VITAMIN D (CHOLECALCIFEROL) 400 INTERNATIONAL UNITS TAB PO SCH (10:21)
[2021-12-29] MEDS: ROSUVASTATIN 10 MG TAB (CRESTOR) PO SCH (21:33)
[2021-12-29] MEDS: DULoxetine 30MG CAPSULE (CYMBALTA) PO SCH (21:33)
[2021-12-29] MEDS: METOPROLOL SUCC (TopROL XL) 100MG *XL* TAB PO SCH (21:36)
[2021-12-29] MEDS: guaiFENesin 200 MG TAB PO PRN (22:25)
[2021-12-30] MEDS: MORPHINE SULFATE ORAL SOLN 10 MG/5 ML UD PO SCH ×4 (00:42→12:24)
[2021-12-30] MEDS: IPRATROPIUM 0.5MG/ALBUTEROL 2.5MG INH SOL UD 3ML (DUONEB) NEB SCH ×3 (01:59→13:20)
[2021-12-30] MEDS: TIOTROPIUM INHALER/CAPSULE (SPIRIVA) INH SCH (07:31)
[2021-12-30] MEDS: ADVAIR HFA 115/21MCG INHALER INH SCH (07:31)
[2021-12-30] MEDS: allopurinoL 300 MG TAB PO SCH (08:13)
[2021-12-30] MEDS: POTASSIUM CHLORIDE 10MEQ SR TABLET PO SCH (08:13)
[2021-12-30] MEDS: predniSONE 10 MG TAB PO SCH (08:13)
[2021-12-30] MEDS: SENOKOT S TAB PO SCH (08:13)
[2021-12-30] MEDS: TORSEMIDE 20 MG TAB PO SCH (08:13)
[2021-12-30 08:14] VITALS: BP 132/69
[2021-12-30] MEDS: LEVEMIR (INSULIN DETEMIR) 1 UNITS/0.01ML SC SCH (08:14)
[2021-12-30] MEDS: APIXABAN 2.5 MG TAB (ELIQUIS) PO SCH (08:14)
[2021-12-30] MEDS: OMEPRAZOLE 20MG CAP PO SCH (08:14)
[2021-12-30] MEDS: VITAMIN D (CHOLECALCIFEROL) 400 INTERNATIONAL UNITS TAB PO SCH (08:15)
[2021-12-30] MEDS: HumaLOG INSULIN (NovoLOG) PER UNIT SC SCH ×2 (08:15→12:23)
[2021-12-30] MEDS: MIRALAX *UNIT DOSE* 17GM PACKET PO SCH (08:15)
[2021-12-30] MEDS: guaiFENesin 200 MG TAB PO PRN (08:21)
[2021-12-30] MEDS ORDERED: FLEET ENEMA PR ONE (09:55)
[2021-12-30] MEDS ORDERED: MORP1SOL4 PO (11:20)
[2021-12-30] MEDS ORDERED: MIRA1POW3 PO (11:20)
[2021-12-30] MEDS ORDERED: SENN-52 PO (11:24)
== END 2021-12-30 14:39 | DRG 189 ==
LOC: M ED 07:44 → M ED INP 10:03 → M ICU 17:50 → M PCU 12-24 17:40 → M MSPAV 12-25 14:52
PROVIDERS: ADMIT Internal Medicine; ATTEND Internal Medicine
DX: J96.22 Acute and chronic respiratory failure with hypercapnia (principal); G93.41 Metabolic encephalopathy; I50.33 Acute on chronic diastolic (congestive) heart failure; J18.9 Pneumonia, unspecified organism; I13.0 Hypertensive heart and chronic kidney disease with heart failure and stage 1 through stage 4 chronic kidney disease, or unspecified chronic kidney disease; I48.20 Chronic atrial fibrillation, unspecified; E87.2 Acidosis; E66.2 Morbid (severe) obesity with alveolar hypoventilation; J44.0 Chronic obstructive pulmonary disease with (acute) lower respiratory infection; J96.21 Acute and chronic respiratory failure with hypoxia; Z66 Do not resuscitate; E11.22 Type 2 diabetes mellitus with diabetic chronic kidney disease; E78.5 Hyperlipidemia, unspecified; Z99.81 Dependence on supplemental oxygen; Z85.46 Personal history of malignant neoplasm of prostate; Z85.51 Personal history of malignant neoplasm of bladder; N18.30 Chronic kidney disease, stage 3 unspecified; K21.9 Gastro-esophageal reflux disease without esophagitis; D50.9 Iron deficiency anemia, unspecified; Z87.891 Personal history of nicotine dependence; Z20.822 Contact with and (suspected) exposure to COVID-19; Z79.82 Long term (current) use of aspirin; Z79.4 Long term (current) use of insulin; Z79.899 Other long term (current) drug therapy; Z88.0 Allergy status to penicillin; Z88.6 Allergy status to analgesic agent; G89.29 Other chronic pain; D72.829 Elevated white blood cell count, unspecified; Z68.37 Body mass index [BMI] 37.0-37.9, adult; Z91.14 Patient's other noncompliance with medication regimen; Z91.19 Patient's noncompliance with other medical treatment and regimen; I27.20 Pulmonary hypertension, unspecified

== ENCOUNTER 2022-02-19 16:48 | Inpatient (IN) | payer OTHER, MEDICARE ==
[~2022-02-19] VITALS: Ht 185.4 cm; Wt 117.6 kg
[2022-02-19] VITALS (9 sets, daily range): BP systolic 103–125; BP diastolic 55–68
[~2022-02-19 16:48] MED LIST changes: -D31000TA2 PO; +DOXY100T PO; +MIRA1POW3 PO; +MORP1SOL4 PO; +POTA1TAB14 PO; +SENN-52 PO; +VITA100093 PO
[2022-02-19 17:25] LABS: ABG BASE EXCESS 7.1 (-2.0-2.0); ABG HCO3 33.9 MEQ/L (22.0-26.0); ABG O2 SATURATION 93.8 % (95.0-99.0); ABG PARTIAL PRESSURE O2 72.8 mmHg (75.0-100.0); ABG STANDARD HCO3 30.9 MEQ/L (22.0-26.0); ABG TOTAL CO2 35.7 MEQ/L (23.0-31.0)
[2022-02-19] MEDS ORDERED: EUCELOT4 TOP (17:37)
[2022-02-19 17:42] LABS: HEMATOCRIT 33.1 % (42.0-52.0); HEMOGLOBIN 9.9 g/dl (13.5-17.5); MEAN CORPUSCULAR HEMOGLOBIN 25.6 pg (27.0-33.0); MEAN CORPUSCULAR HGB CONC 29.9 g/dl (32.0-36.5); MEAN CORPUSCULAR VOLUME 85.8 fl (80.0-96.0); PLATELET COUNT, AUTOMATED 391 10^3/uL (150-450); RED BLOOD COUNT 3.86 10^6/uL (4.30-6.10); WHITE BLOOD COUNT 13.7 10^3/uL (4.0-10.0)
[2022-02-19] MEDS ORDERED: DOCU8.6T PO ×2 (17:42→17:46)
[2022-02-19] MEDS ORDERED: BREO1INH INH (17:42)
[2022-02-19] MEDS ORDERED: CYMB1CAP5 PO (17:42)
[2022-02-19] MEDS ORDERED: PANT40TA29 PO (17:42)
[2022-02-19] MEDS ORDERED: LOPR1TAB6 PO (17:46)
[2022-02-19] MEDS ORDERED: POLY17PO18 PO (17:46)
[2022-02-19] MEDS ORDERED: NYST1POW9 TOP (17:48)
[2022-02-19] MEDS ORDERED: MIDO5TA PO (17:52)
[2022-02-19] MEDS ORDERED: AVOD0.5C PO (17:52)
[2022-02-19] MEDS ORDERED: PROBCAP14 PO (17:52)
[2022-02-19] MEDS ORDERED: IPRA0.00 NEB (17:53)
[2022-02-19] MEDS ORDERED: CIPR-249 PO (17:57)
[2022-02-19] MEDS ORDERED: METR-369 PO (17:57)
[2022-02-19] MEDS ORDERED: MECL-86 PO (17:59)
[2022-02-19] MEDS ORDERED: LEVALBUTEROL 1.25 MG/0.5 ML CONCENTRATE NEB INH PRN (18:00)
[2022-02-19] MEDS ORDERED: ACET500T15 PO (18:00)
[2022-02-19] MEDS ORDERED: MORP1SOL PO (18:03)
[2022-02-19 18:12] LABS: ALBUMIN 2.4 GM/DL (3.2-5.2); BILIRUBIN,TOTAL 0.4 MG/DL (0.2-1.0); CALCIUM LEVEL 8.6 MG/DL (8.8-10.2); CREATININE FOR GFR 2.26 MG/DL (0.70-1.30); GLOMERULAR FILTRATION RATE 29.7 (>35); MAGNESIUM LEVEL 2.4 MG/DL (1.8-2.4); PHOSPHORUS LEVEL 4.4 MG/DL (2.5-4.9); POTASSIUM SERUM 3.5 MEQ/L (3.5-5.1); TOTAL PROTEIN 6.8 GM/DL (6.4-8.2)
[2022-02-19] MEDS ORDERED: INSURSDRX SC (18:14)
[2022-02-19] MEDS ORDERED: HOME MED LIST COMPLETE! XX SCH (18:20)
[2022-02-19 18:55] LABS: BASOPHILS 1 % (0-1); LYMPHOCYTES 25 % (16-44); METAMYELOCYTES 2 % (0-0); MONOCYTES 7 % (0-5); MYELOCYTES 5 % (0-0); NEUTROPHILS 59 % (28-66)
[2022-02-19] MEDS ORDERED: GLUCOSE 4GM CHEW TABLET PO PRN (18:55)
[2022-02-19] MEDS ORDERED: DEXTROSE 50% 50 ML SYRINGE IV PRN (18:55)
[2022-02-19] MEDS ORDERED: GLUCAGON INJ 1MG VIAL SC PRN (18:55)
[2022-02-19 18:56] LABS: PLATELET ESTIMATE NORMAL (NORMAL)
[2022-02-19] MEDS: IPRATROPIUM 0.02% SOLN 0.5MG 2.5ML NEB INH SCH (19:38)
[2022-02-19] MEDS: FUROSEMIDE 40MG/4ML VIAL (J1940) IV SCH (20:02)
[2022-02-19] MEDS: PANTOPRAZOLE 40MG VIAL IV SCH (20:02)
[2022-02-19] MEDS: APIXABAN 2.5 MG TAB (ELIQUIS) PO SCH (20:41)
[2022-02-19] MEDS: PIPERACILLIN/TAZOBACTAM SOD 3.375 GM in D5W MINI-BAG PLUS 50 ML IV SCH (20:41)
[2022-02-20] VITALS (61 sets, daily range): BP systolic 84–151; BP diastolic 48–81
[2022-02-20] MEDS: IPRATROPIUM 0.02% SOLN 0.5MG 2.5ML NEB INH SCH ×6 (00:28→19:13)
[2022-02-20 01:12] LABS: ABG BASE EXCESS 6.5 (-2.0-2.0); ABG HCO3 32.2 MEQ/L (22.0-26.0); ABG O2 SATURATION 97.4 % (95.0-99.0); ABG PARTIAL PRESSURE CO2 52.5 mmHg (35.0-45.0); ABG PARTIAL PRESSURE O2 96.1 mmHg (75.0-100.0); ABG STANDARD HCO3 30.3 MEQ/L (22.0-26.0); ABG TOTAL CO2 33.8 MEQ/L (23.0-31.0); ABG pH (ARTERIAL) 7.406 UNITS (7.350-7.450)
[2022-02-20] MEDS: HumaLOG INSULIN (NovoLOG) PER UNIT SC SCH ×4 (01:27→18:00)
[2022-02-20] MEDS: PIPERACILLIN/TAZOBACTAM SOD 3.375 GM in D5W MINI-BAG PLUS 50 ML IV SCH ×4 (02:24→21:39)
[2022-02-20 04:51] LABS: BASO % 0.3 % (0.0-1.0); EOS # 0.1 10^3/uL (0.0-0.5); EOS % 0.7 % (0.0-3.0); HEMOGLOBIN 9.2 g/dl (13.5-17.5); LYMPH # 2.3 10^3/uL (1.5-5.0); LYMPH % 17.6 % (24.0-44.0); MEAN CORPUSCULAR HEMOGLOBIN 25.2 pg (27.0-33.0); MEAN CORPUSCULAR HGB CONC 29.7 g/dl (32.0-36.5); MEAN CORPUSCULAR VOLUME 84.9 fl (80.0-96.0); MONO % 19.5 % (2.0-8.0); NEUTROPHILS # 7.9 10^3/uL (1.5-8.5); NEUTROPHILS % 61.5 % (36.0-66.0); PLATELET COUNT, AUTOMATED 372 10^3/uL (150-450); RED BLOOD COUNT 3.65 10^6/uL (4.30-6.10); WHITE BLOOD COUNT 12.9 10^3/uL (4.0-10.0)
[2022-02-20 04:59] LABS: ALBUMIN 2.3 GM/DL (3.2-5.2); BILIRUBIN,TOTAL 0.4 MG/DL (0.2-1.0); CALCIUM LEVEL 8.9 MG/DL (8.8-10.2); CREATININE FOR GFR 2.13 MG/DL (0.70-1.30); GLOMERULAR FILTRATION RATE 31.8 (>35); MAGNESIUM LEVEL 2.4 MG/DL (1.8-2.4); POTASSIUM SERUM 3.3 MEQ/L (3.5-5.1); TOTAL PROTEIN 6.5 GM/DL (6.4-8.2)
[2022-02-20] MEDS ORDERED: POTASSIUM CHLORIDE 10MEQ SR TABLET PO ONE ×2 (05:25→14:00)
[2022-02-20 05:28] LABS: MONO # 2.5 10^3/uL (0.0-0.8)
[2022-02-20] MEDS: FUROSEMIDE 40MG/4ML VIAL (J1940) IV SCH ×2 (06:00)
[2022-02-20] MEDS ORDERED: KCL 10MEQ/100ML SWI (KRUN) 10 MEQ in IV 1 EA IV SCH (07:00)
[2022-02-20] MEDS ORDERED: MIDODRINE 5 MG TAB PO SCH (08:00)
[2022-02-20] MEDS: PANTOPRAZOLE 40MG VIAL IV SCH (08:30)
[2022-02-20] MEDS: APIXABAN 2.5 MG TAB (ELIQUIS) PO SCH ×2 (08:30→21:37)
[2022-02-20] MEDS ORDERED: DUTASTERIDE 0.5 MG CAP (AVODART) PO SCH (09:00)
[2022-02-20] MEDS ORDERED: METOPROLOL 5 MG/5 ML VIAL IV SCH (09:00)
[2022-02-20] MEDS ORDERED: DIGOXIN INJ 0.5 MG/2 ML AMP (J1160) IV ONE ×2 (09:10→15:05)
[2022-02-20] MEDS ORDERED: AMIODARONE HCL 150 MG in IV 1 EA IV ONE (09:15)
[2022-02-20] MEDS ORDERED: AMIODARONE HCL 360 MG in IV 1 EA IV SCH ×4 (09:15)
[2022-02-20] MEDS: BUDESONIDE 0.5 MG/2 ML INHALATION SUSPENSION INH SCH ×2 (11:03→19:13)
[2022-02-20] MEDS: MIDODRINE 5 MG TAB PO SCH ×2 (11:38→15:47)
[2022-02-20] MEDS: FUROSEMIDE injection 250 MG in D5W 225 ML IV SCH (12:00)
[2022-02-20] MEDS: KCL 10MEQ/100ML SWI (KRUN) 10 MEQ in IV 1 EA IV SCH ×2 (13:18→14:50)
[2022-02-20] MEDS: AMIODARONE HCL 360 MG in IV 1 EA IV SCH (15:46)
[2022-02-20] MEDS: LEVALBUTEROL 1.25 MG/0.5 ML CONCENTRATE NEB INH SCH ×2 (16:00→19:13)
[2022-02-20] MEDS ORDERED: PHENYLEPHRINE 10MG/ML 1ML VIAL (J2370 PER 1) As Ordered ONE (16:01)
[2022-02-20] MEDS ORDERED: MIDAZOLAM INJ 2MG/2ML VIAL (J2250 PER 1MG) As Ordered ONE (16:13)
[2022-02-20] MEDS ORDERED: MIDAZOLAM INJ 2MG/2ML VIAL (J2250 PER 1MG) IV STA ×2 (16:13→16:30)
[2022-02-20] MEDS ORDERED: PROPOFOL 1,000 MG/100 ML VIAL As Ordered ONE (16:14)
[2022-02-20] MEDS ORDERED: PHENYLEPHRINE HCL INJ 50 MG in D5W 495 ML IV SCH (16:15)
[2022-02-20] MEDS ORDERED: propofoL 1,000 MG in IV 1 EA IV SCH (16:15)
[2022-02-20] MEDS ORDERED: ETOMIDATE INJ 20MG/10ML VIAL IV STA (16:18)
[2022-02-20] MEDS ORDERED: SUCCINYLCHOLINE INJ 200 MG/10 ML VIAL (J0330) IV STA (16:18)
[2022-02-20] MEDS ORDERED: REFRIGERATOR IV KEYS XX PRN (16:25)
[2022-02-20] MEDS ORDERED: MIDAZOLAM HCL 100 MG in D5W 80 ML IV SCH (16:45)
[2022-02-20] MEDS: MIDAZOLAM HCL 100 MG in D5W 80 ML IV SCH (16:47)
[2022-02-20 17:26] LABS: ABG BASE EXCESS 7.4 (-2.0-2.0); ABG HCO3 33.7 MEQ/L (22.0-26.0); ABG O2 SATURATION 99.6 % (95.0-99.0); ABG PARTIAL PRESSURE O2 261.7 mmHg (75.0-100.0); ABG STANDARD HCO3 31.3 MEQ/L (22.0-26.0); ABG TOTAL CO2 35.4 MEQ/L (23.0-31.0); ABG pH (ARTERIAL) 7.389 UNITS (7.350-7.450)
[2022-02-20] MEDS: CHLORHEXIDINE GLUCONATE 0.12 % 15ML UDC (PERIDEX ORAL RINSE) MT SCH (21:37)
[2022-02-21] VITALS (90 sets, daily range): BP systolic 74–138; BP diastolic 50–79
[2022-02-21] MEDS: HumaLOG INSULIN (NovoLOG) PER UNIT SC SCH ×4 (00:13→17:45)
[2022-02-21] MEDS: FUROSEMIDE injection 250 MG in D5W 225 ML IV SCH (00:56)
[2022-02-21] MEDS: METOPROLOL 5 MG/5 ML VIAL IV SCH ×3 (01:10→01:16)
[2022-02-21] MEDS ORDERED: DIGOXIN INJ 0.5 MG/2 ML AMP (J1160) IV ONE ×4 (01:10→10:30)
[2022-02-21] MEDS: LEVALBUTEROL 1.25 MG/0.5 ML CONCENTRATE NEB INH SCH ×3 (01:50→07:33)
[2022-02-21] MEDS: PIPERACILLIN/TAZOBACTAM SOD 3.375 GM in D5W MINI-BAG PLUS 50 ML IV SCH ×4 (02:19→19:53)
[2022-02-21] MEDS: IPRATROPIUM 0.02% SOLN 0.5MG 2.5ML NEB INH SCH ×6 (03:36→19:40)
[2022-02-21 03:57] LABS: ABG BASE EXCESS 10.5 (-2.0-2.0); ABG HCO3 36.4 MEQ/L (22.0-26.0); ABG O2 SATURATION 96.9 % (95.0-99.0); ABG PARTIAL PRESSURE CO2 56.4 mmHg (35.0-45.0); ABG PARTIAL PRESSURE O2 83.9 mmHg (75.0-100.0); ABG STANDARD HCO3 34.2 MEQ/L (22.0-26.0); ABG TOTAL CO2 38.2 MEQ/L (23.0-31.0); ABG pH (ARTERIAL) 7.428 UNITS (7.350-7.450)
[2022-02-21] MEDS: AMIODARONE HCL 360 MG in IV 1 EA IV SCH (04:14)
[2022-02-21 05:23] LABS: BASO % 0.2 % (0.0-1.0); EOS # 0.1 10^3/uL (0.0-0.5); EOS % 0.7 % (0.0-3.0); HEMATOCRIT 32.6 % (42.0-52.0); HEMOGLOBIN 9.6 g/dl (13.5-17.5); LYMPH # 1.6 10^3/uL (1.5-5.0); LYMPH % 10.6 % (24.0-44.0); MEAN CORPUSCULAR HEMOGLOBIN 25.5 pg (27.0-33.0); MEAN CORPUSCULAR HGB CONC 29.4 g/dl (32.0-36.5); MEAN CORPUSCULAR VOLUME 86.5 fl (80.0-96.0); MONO % 13.5 % (2.0-8.0); NEUTROPHILS # 11.3 10^3/uL (1.5-8.5); NEUTROPHILS % 74.5 % (36.0-66.0); PLATELET COUNT, AUTOMATED 372 10^3/uL (150-450); RED BLOOD COUNT 3.77 10^6/uL (4.30-6.10); WHITE BLOOD COUNT 15.1 10^3/uL (4.0-10.0)
[2022-02-21 05:25] LABS: MONO # 2.1 10^3/uL (0.0-0.8)
[2022-02-21 05:58] LABS: ALBUMIN 2.2 GM/DL (3.2-5.2); BILIRUBIN,TOTAL 0.6 MG/DL (0.2-1.0); CALCIUM LEVEL 8.9 MG/DL (8.8-10.2); CREATININE FOR GFR 2.39 MG/DL (0.70-1.30); GLOMERULAR FILTRATION RATE 27.9 (>35); MAGNESIUM LEVEL 2.4 MG/DL (1.8-2.4); PHOSPHORUS LEVEL 2.8 MG/DL (2.5-4.9); POTASSIUM SERUM 3.3 MEQ/L (3.5-5.1); TOTAL PROTEIN 6.3 GM/DL (6.4-8.2)
[2022-02-21] MEDS: BUDESONIDE 0.5 MG/2 ML INHALATION SUSPENSION INH SCH (07:33)
[2022-02-21] MEDS: APIXABAN 2.5 MG TAB (ELIQUIS) PO SCH ×2 (08:18→22:45)
[2022-02-21] MEDS: MIDODRINE 5 MG TAB PO SCH ×3 (08:19→16:07)
[2022-02-21] MEDS: CHLORHEXIDINE GLUCONATE 0.12 % 15ML UDC (PERIDEX ORAL RINSE) MT SCH ×2 (08:20→22:44)
[2022-02-21] MEDS: PANTOPRAZOLE 40MG VIAL IV SCH (08:20)
[2022-02-21] MEDS ORDERED: LEVALBUTEROL 1.25 MG/0.5 ML CONCENTRATE NEB INH PRN (09:45)
[2022-02-21] MEDS ORDERED: POTASSIUM CHL PWD 20 MEQ PACKET GT ONE (10:00)
[2022-02-21] MEDS: MIDAZOLAM HCL 100 MG in D5W 80 ML IV SCH (17:41)
[2022-02-21] MEDS: SYMBICORT 160/4.5MCG INHALER 6GM INH SCH (19:39)
[2022-02-21] MEDS: AMIODARONE 200 MG TAB (PACERONE) PO SCH (22:45)
[2022-02-22] VITALS (32 sets, daily range): BP systolic 89–166; BP diastolic 54–112
[2022-02-22] MEDS: IPRATROPIUM 0.02% SOLN 0.5MG 2.5ML NEB INH SCH ×6 (00:04→20:13)
[2022-02-22] MEDS: HumaLOG INSULIN (NovoLOG) PER UNIT SC SCH ×4 (00:58→16:56)
[2022-02-22] MEDS: FUROSEMIDE injection 250 MG in D5W 225 ML IV SCH (00:59)
[2022-02-22] MEDS: PIPERACILLIN/TAZOBACTAM SOD 3.375 GM in D5W MINI-BAG PLUS 50 ML IV SCH ×4 (01:00→20:50)
[2022-02-22 05:28] LABS: HEMATOCRIT 30.4 % (42.0-52.0); HEMOGLOBIN 9.2 g/dl (13.5-17.5); MEAN CORPUSCULAR HEMOGLOBIN 26.4 pg (27.0-33.0); MEAN CORPUSCULAR HGB CONC 30.3 g/dl (32.0-36.5); MEAN CORPUSCULAR VOLUME 87.4 fl (80.0-96.0); PLATELET COUNT, AUTOMATED 418 10^3/uL (150-450); RED BLOOD COUNT 3.48 10^6/uL (4.30-6.10); WHITE BLOOD COUNT 16.4 10^3/uL (4.0-10.0)
[2022-02-22 05:43] LABS: ABG BASE EXCESS 11.1 (-2.0-2.0); ABG HCO3 37.4 MEQ/L (22.0-26.0); ABG O2 SATURATION 97.3 % (95.0-99.0); ABG PARTIAL PRESSURE CO2 59.7 mmHg (35.0-45.0); ABG PARTIAL PRESSURE O2 93.5 mmHg (75.0-100.0); ABG STANDARD HCO3 34.8 MEQ/L (22.0-26.0); ABG TOTAL CO2 39.3 MEQ/L (23.0-31.0); ABG pH (ARTERIAL) 7.415 UNITS (7.350-7.450)
[2022-02-22 05:52] LABS: MAGNESIUM LEVEL 2.6 MG/DL (1.8-2.4); PHOSPHORUS LEVEL 2.5 MG/DL (2.5-4.9)
[2022-02-22] MEDS: PANTOPRAZOLE 40MG VIAL IV SCH (07:19)
[2022-02-22] MEDS: CHLORHEXIDINE GLUCONATE 0.12 % 15ML UDC (PERIDEX ORAL RINSE) MT SCH ×2 (07:19→20:50)
[2022-02-22] MEDS: MIDODRINE 5 MG TAB PO SCH ×3 (07:20→15:18)
[2022-02-22] MEDS: AMIODARONE 200 MG TAB (PACERONE) PO SCH ×3 (07:20→20:51)
[2022-02-22] MEDS: APIXABAN 2.5 MG TAB (ELIQUIS) PO SCH ×2 (07:20→20:50)
[2022-02-22] MEDS: SYMBICORT 160/4.5MCG INHALER 6GM INH SCH ×2 (07:25→20:12)
[2022-02-22 09:37] LABS: CREATININE FOR GFR 2.17 MG/DL (0.70-1.30); GLOMERULAR FILTRATION RATE 31.1 (>35)
[2022-02-22 09:38] LABS: POTASSIUM SERUM 3.2 MEQ/L (3.5-5.1)
[2022-02-22 09:39] LABS: BILIRUBIN,TOTAL 0.4 MG/DL (0.2-1.0); TOTAL PROTEIN 6.2 GM/DL (6.4-8.2)
[2022-02-22] MEDS: fentaNYL 100 MCG/2 ML INJECTION IV PRN (09:39)
[2022-02-22] MEDS: KCL 20MEQ IN 100ML SWI (KRUN) 20 MEQ in IV 1 EA IV SCH ×4 (10:20→11:20)
[2022-02-22] MEDS: SENNA 8.6 MG TAB (SENOKOT) PO SCH (11:20)
[2022-02-22] MEDS: MIRALAX *UNIT DOSE* 17GM PACKET PO SCH (11:20)
[2022-02-22] MEDS: diltiaZEM 125 MG in NS 100 ML IV SCH ×2 (12:27→20:48)
[2022-02-22] MEDS: MIDAZOLAM HCL 100 MG in D5W 80 ML IV SCH (16:51)
[2022-02-22] MEDS: MIDAZOLAM INJ 2MG/2ML VIAL (J2250 PER 1MG) IV PRN (21:12)
[2022-02-23] VITALS (15 sets, daily range): BP systolic 102–143; BP diastolic 56–92
[2022-02-23] MEDS: HumaLOG INSULIN (NovoLOG) PER UNIT SC SCH ×3 (00:20→12:07)
[2022-02-23] MEDS: FUROSEMIDE injection 250 MG in D5W 225 ML IV SCH (00:20)
[2022-02-23] MEDS: IPRATROPIUM 0.02% SOLN 0.5MG 2.5ML NEB INH SCH ×5 (01:45→15:43)
[2022-02-23] MEDS: PIPERACILLIN/TAZOBACTAM SOD 3.375 GM in D5W MINI-BAG PLUS 50 ML IV SCH ×2 (02:58→08:25)
[2022-02-23 04:43] LABS: HEMATOCRIT 30.1 % (42.0-52.0); HEMOGLOBIN 9.1 g/dl (13.5-17.5); MEAN CORPUSCULAR HEMOGLOBIN 26.1 pg (27.0-33.0); MEAN CORPUSCULAR HGB CONC 30.2 g/dl (32.0-36.5); MEAN CORPUSCULAR VOLUME 86.5 fl (80.0-96.0); PLATELET COUNT, AUTOMATED 457 10^3/uL (150-450); RED BLOOD COUNT 3.48 10^6/uL (4.30-6.10); WHITE BLOOD COUNT 17.2 10^3/uL (4.0-10.0)
[2022-02-23] MEDS: diltiaZEM 125 MG in NS 100 ML IV SCH ×2 (04:54→13:24)
[2022-02-23 05:13] LABS: BILIRUBIN,TOTAL 0.5 MG/DL (0.2-1.0); CALCIUM LEVEL 9.2 MG/DL (8.8-10.2); CREATININE FOR GFR 2.15 MG/DL (0.70-1.30); GLOMERULAR FILTRATION RATE 31.5 (>35); TOTAL PROTEIN 6.4 GM/DL (6.4-8.2)
[2022-02-23 05:49] LABS: ABG BASE EXCESS 12.9 (-2.0-2.0); ABG HCO3 38.1 MEQ/L (22.0-26.0); ABG O2 SATURATION 98.9 % (95.0-99.0); ABG PARTIAL PRESSURE CO2 53.4 mmHg (35.0-45.0); ABG PARTIAL PRESSURE O2 118.3 mmHg (75.0-100.0); ABG STANDARD HCO3 36.6 MEQ/L (22.0-26.0); ABG TOTAL CO2 39.7 MEQ/L (23.0-31.0); ABG pH (ARTERIAL) 7.471 UNITS (7.350-7.450)
[2022-02-23] MEDS: SYMBICORT 160/4.5MCG INHALER 6GM INH SCH (07:25)
[2022-02-23] MEDS ORDERED: POTASSIUM CHL PWD 20 MEQ PACKET PO ONE (07:35)
[2022-02-23] MEDS: MIDODRINE 5 MG TAB PO SCH ×2 (08:00→12:00)
[2022-02-23] MEDS: SENNA 8.6 MG TAB (SENOKOT) PO SCH (08:24)
[2022-02-23] MEDS: MIRALAX *UNIT DOSE* 17GM PACKET PO SCH (08:24)
[2022-02-23] MEDS: APIXABAN 2.5 MG TAB (ELIQUIS) PO SCH (08:25)
[2022-02-23] MEDS: PANTOPRAZOLE 40MG VIAL IV SCH (08:25)
[2022-02-23] MEDS: CHLORHEXIDINE GLUCONATE 0.12 % 15ML UDC (PERIDEX ORAL RINSE) MT SCH (08:25)
[2022-02-23] MEDS: AMIODARONE 200 MG TAB (PACERONE) PO SCH (08:25)
[2022-02-23] MEDS: fentaNYL 100 MCG/2 ML INJECTION IV PRN ×3 (09:10→18:59)
[2022-02-23] MEDS: MIDAZOLAM INJ 2MG/2ML VIAL (J2250 PER 1MG) IV PRN (10:09)
[2022-02-23] MEDS ORDERED: LORazepam 2 MG/ML VIAL IV STA (14:24)
[2022-02-23] MEDS ORDERED: ONDANSETRON 4MG/2ML VIAL IV PRN (14:25)
[2022-02-23] MEDS ORDERED: SCOPOLAMINE 1MG TRANSDERMAL PATCH TOP PRN (14:25)
[2022-02-23] MEDS: MORPHINE 2 MG/ML 1ML VIAL IV PRN ×4 (15:07→23:17)
[2022-02-23] MEDS: LORazepam 2 MG/ML VIAL IV PRN ×2 (15:11→17:55)
[2022-02-23] MEDS ORDERED: LORazepam 2 MG/ML VIAL IV PRN ×2 (18:25→18:30)
[2022-02-23] MEDS ORDERED: MORPHINE 2 MG/ML 1ML VIAL IV PRN (18:30)
== END 2022-02-24 01:00 | disposition expired | DRG 871 ==
LOC: M ICU 17:01 → M MS5PR 02-23 20:02
PROVIDERS: ADMIT Family Medicine; ATTEND Internal Medicine
PROC: 05HM33Z Insertion of Infusion Device into Right Internal Jugular Vein, Percutaneous Approach (ICD-10-PCS; 2022-02-20)
PROC: 5A1945Z Respiratory Ventilation, 24-96 Consecutive Hours (ICD-10-PCS; principal; 2022-02-21)
DX: A41.9 Sepsis, unspecified organism (principal); J96.21 Acute and chronic respiratory failure with hypoxia; I50.33 Acute on chronic diastolic (congestive) heart failure; J18.9 Pneumonia, unspecified organism; J96.22 Acute and chronic respiratory failure with hypercapnia; K57.92 Diverticulitis of intestine, part unspecified, without perforation or abscess without bleeding; J98.11 Atelectasis; I13.0 Hypertensive heart and chronic kidney disease with heart failure and stage 1 through stage 4 chronic kidney disease, or unspecified chronic kidney disease; I48.20 Chronic atrial fibrillation, unspecified; E66.2 Morbid (severe) obesity with alveolar hypoventilation; E87.2 Acidosis; N17.9 Acute kidney failure, unspecified; J44.0 Chronic obstructive pulmonary disease with (acute) lower respiratory infection; N18.30 Chronic kidney disease, stage 3 unspecified; K21.9 Gastro-esophageal reflux disease without esophagitis; E11.22 Type 2 diabetes mellitus with diabetic chronic kidney disease; I95.1 Orthostatic hypotension; D50.9 Iron deficiency anemia, unspecified; E87.6 Hypokalemia; R00.0 Tachycardia, unspecified; E78.5 Hyperlipidemia, unspecified; E83.119 Hemochromatosis, unspecified; Z99.81 Dependence on supplemental oxygen; G47.33 Obstructive sleep apnea (adult) (pediatric); Z92.3 Personal history of irradiation; Z85.46 Personal history of malignant neoplasm of prostate; Z85.51 Personal history of malignant neoplasm of bladder; Z51.5 Encounter for palliative care; Z87.891 Personal history of nicotine dependence; Z79.899 Other long term (current) drug therapy; Z88.0 Allergy status to penicillin; Z88.6 Allergy status to analgesic agent; I48.0 Paroxysmal atrial fibrillation; Z79.01 Long term (current) use of anticoagulants; Z95.2 Presence of prosthetic heart valve; K44.9 Diaphragmatic hernia without obstruction or gangrene